=== PATIENT | female | born 1960 | race African-American/Black ===

== ENCOUNTER 2017-03-30 15:57 | Inpatient (IN) ==
[~2017-03-30 15:57] MED LIST: DEXTROSE 50% 25 GM/50 ML VIAL IV STA
[2017-03-30 17:16] LABS: Basophils % 0.2 % (0.0-0.8); Eosinophils # 0.1 10*3/uL (0.0-0.87); Eosinophils % 0.5 % (0.00-10.9); Hematocrit 37.6 VOL% (35.7-47.0); Hemoglobin 11.3 GM/DL (12.0-16.0); Immature Granulocytes % 0.9 %; Immature Granulocytes Absolute 0.11 #; Lymphocytes # 1.2 10*3/uL (1.4-4.0); Lymphocytes % 9.4 % (21.3-54.2); Mean Corpuscular HGB Conc 30.1 GM/DL (32-36); Mean Corpuscular Hemoglobin 28 PG (27-34); Mean Corpuscular Volume 91.9 FL (87-102); Mean Platelet Volume 9.3 FL (9.6-12.0); Monocytes # 0.7 10*3/uL (0.11-0.8); Monocytes % 5.4 % (1.7-12.7); Neutrophils # 10.5 10*3/uL (1.4-7.4); Neutrophils % 83.6 % (38.7-73.9); Platelet Count 233 T/CUMM (130-400); Red Blood Count 4.09 MC/CUMM (3.8-5.5); Red Cell Distribution Width 16.3 % (9.3-17.3); White Blood Count 12.5 T/CUMM (4-12)
[2017-03-30 17:36] LABS: Albumin 3.1 G/DL (3.4-5.0); Bilirubin,Total 0.4 MG/DL (0.2-1.0); Calcium 8.7 MG/DL (8.5-10.1); Potassium 3.5 MMOL/L (3.5-5.1)
--- NOTE | 2017-03-30 18:10 | Emergency Department Note ---
I, Sophia Dumas, am scribing for, and in the presence of, Odette Mahmood DO 17: 05. ITimoteo Debra, DO, personally performed the services described in this documentation, ascribed by Sophia Dumas in my presence, and it is both accurate and complete 706 . Arrival - Arrival Chief Complaint: Altered Mental Status Stated Complaint: blood sugar ED Nursing Triage Note: patient got out of car by nurse and brought straight to the back. patients blood sugar was less than 20. family states that patient has not felt good since yesterday and all she has done today is lay around. Mode of Arrival: Wheelchair Limitations: No Limitations, Language Barrier Source: Family Time Seen by Provider: 03/30/17 16:41 - History of Present Illness HPI Narrative: This is a 56 y/o black female,who presents to the ED with c/o hypoglycemia which started yesterday. Her family states pts' BS was 20 when they found her today. Pt states she took her insulin this morning but did not eat much this morning. Pt's family also states pt had a fall yesterday. Pt now complains of left sided pain. Pt also complains of diarrhea for over 1 month. She reports she has spoken to her PCP which he told her this is secondary to ABX use. Pt has no other complaints/pain in the ED at this time. Pt has a PMHx of IDDM. Pt denies a surgical hx. Pt denies a family medical Hx. Pt denies a social hx. Onset (ago): day(s) (Started yesterday.) Consistency: constant Severity: moderate Allergies/Adverse Reactions: Allergies Allergy/AdvReac Type Severity Reaction Status Date / Time sulfamethoxazole Allergy Unknown/Unable Verified 03/30/17 16:07 [From Bactrim] to obtain trimethoprim [From Bactrim] Allergy Unknown/Unable Verified 03/30/17 16:07 to obtain Home Medications: Home Medications Medication Instructions Recorded Confirmed Type Amlodipine Besylate 10 mg PO QAM 03/30/17 03/30/17 History Atorvastatin [Lipitor] 10 mg PO BEDTIME 03/30/17 03/30/17 History Colchicine [Colcrys] 0.6 mg PO BID 03/30/17 03/30/17 History Esomeprazole Magnesium [Nexium] 40 mg PO QAM 03/30/17 03/30/17 History Insulin Detemir [Levemir FlexPen] 65 unit SUBCUT BID 03/30/17 03/30/17 History Levothyroxine Tab [Synthroid Tab] 100 mcg PO DAILY@0700 03/30/17 03/30/17 History Mycophenolate Sodium [Mycophenolic 720 mg PO BID 03/30/17 03/30/17 History Acid] Potassium Chloride 8 meq PO BID 03/30/17 03/30/17 History Tacrolimus [Tacrolimus Cap] 5 mg PO BID 03/30/17 03/30/17 History predniSONE TAB [PredniSONE] 5 mg PO QAM 03/30/17 03/30/17 History Review of System - Review of System 12 point system: reviewed and no additional remarkable complaints except as stated - Review of System Review of Systems: Fall Gastrointestinal: Present: diarrhea Endocrine: Present: other (Hypoglycemia) Medical,Surgical,& Family Hx - Medical History Endocrine: History of: Diabetes Mellitus (IDDM) - Family History Family History: Denies;: Family Diabetes - Social History Smoking Status: Never smoker Frequency of Alcohol Use: None Type of Drug Use: None Exam Vital Signs: Vital Signs Temperature 98.6 F 03/30/17 16:29 Pulse Rate 82 03/30/17 16:29 Respiratory Rate 18 03/30/17 16:29 Blood Pressure 102/60 03/30/17 16:29 O2 Sat by Pulse Oximetry 97 03/30/17 16:03 - General General appearance: alert, in no apparent distress, obese - Head Head exam: Present: atraumatic, normocephalic - Eye Eye exam: Present: normal appearance, PERRL, EOMI. Absent: nystagmus - ENT ENT exam: Present: normal exam, mucous membranes moist - Neck Neck exam: Present: normal inspection, full ROM, trachea midline. Absent: tenderness - Chest Chest inspection: Present: normal inspection, symmetric chest wall rise. Absent : tenderness - Respiratory Respiratory exam: Present: normal lung sounds bilaterally. Absent: respiratory distress - Cardiovascular Cardiovascular exam: Present: regular rate, normal rhythm, normal heart sounds. Absent: murmur, rubs, gallop, clicks, JVD - Abdominal Exam Abdominal exam: Present: soft (Pulled muscle to the Left lower abdomen), normal bowel sounds, other. Absent: distention, tenderness, guarding, rebound, rigidity - Rectal Exam Rectal exam: Present: deferred - Extremities Exam Extremities exam: Present: normal inspection, full ROM, normal capillary refill. Absent: pedal edema - Back Exam Back exam: Present: normal inspection, full ROM. Absent: tenderness, muscle spasm, rashes - Neurological Exam Neurological exam: Present: alert, oriented X3, CN II-XII intact. Absent: motor sensory deficit - Psychiatric Psychiatric exam: Present: normal affect, normal mood. Absent: depressed, agitated, anxious, flat affect, manic - Skin Skin exam: Present: warm, dry, intact, normal color. Absent: rash, cyanosis, diaphoresis, erythema, pallor, mottled Course Course Narrative: Spoke with hospitalist and they will admit this diabetic for hypoglycemic episode and worsening renal function. Results - Labs CBC & BMP: 03/30/17 16:57 03/30/17 16:57 Lab Results: I have reviewed the patients labs Disposition Clinical Impression: Hypoglycemia Case discussed with: patient, patient's family Disposition: Still a Patient Condition: Stable Time of Disposition: 18:10
[2017-03-30] MEDS ORDERED: DEXTROSE 50% 25 GM/50 ML SYRINGE IV ONE (18:15)
[2017-03-30] MEDS ORDERED: DEXTROSE 50% 25 GM/50 ML VIAL IV STA (18:18)
[2017-03-30] MEDS: DEXTROSE 5% NACL 0.45% 1,000 ML IV SCH (18:31)
[2017-03-30] MEDS ORDERED: GLUCAGON 1 MG VIAL IM PRN (19:01)
[2017-03-30] MEDS ORDERED: DEXTROSE 50% 25 GM/50 ML SYRINGE IV PRN (19:01)
--- NOTE | 2017-03-30 19:41 | Internal Med History&Physical ---
Assessment and Plan (1) Hypoglycemia Status: Acute Assessment and plan: 56-year-old female admitted to acute care * Hypoglycemia. Patient's oral intake has decreased significantly recently. She has lost weight and has been taking her insulin. This is most likely the cause of hypoglycemia. * Nausea vomiting and diarrhea. Will evaluate with stool for C. difficile culture and sensitivity. We will also check ultrasound of right upper quadrant. Patient has had previous cholecystectomy and she is on Nexium. * History of renal failure. Patient is status post renal transplant. She will be continued on her current transplant medications. Her creatinine is higher than her baseline of around 1.5. This is probably secondary to dehydration. * Diabetes. Will hold her Levemir insulin. Will give her a mild sliding scale if blood sugars are above 200. * History of connective tissue disease. Stable * Her white count is elevated. With her recent history of antibiotics use. Will start her empirically on Flagyl. * Discussed with patient and her family members Current Visit: Yes (2) Insulin dependent diabetes mellitus Status: Acute Current Visit: Yes (3) Status post kidney transplant Status: Acute Current Visit: Yes (4) Acute renal failure Status: Acute Current Visit: Yes (5) Hypertension Status: Acute Current Visit: Yes (6) Connective tissue disease Status: Acute Current Visit: Yes History of Present Illness Chief complaint: Hypoglycemia History of present illness: Ms. Delgado is a 56 year old female with history of multiple medical problems including chronic renal failure status post renal transplant, hypertension, diabetes, connective tissue disease, hypothyroidism who was brought to the emergency room with change in mental status. She was found to have hypoglycemia. Her glucose was less than 20. She has not been eating recently. Her appetite has been extremely poor. She has been having diarrhea off and on for last month or so. She was seen in the office last month and has lost about 7 pounds since then. She had previously lost 15 pounds. She was recently on antibiotics. Her diarrhea is 1 or 2 times a day and it is watery. She feels weak. She did have a fall yesterday but did not hit her head. She has had previous cholecystectomy. She has been taking her insulin but a lower dose. She denies any chest pain or shortness of breath. She does have some nausea and vomiting. Patient lives at home with her son. She does not smoke or drink alcohol Home Medications Medication Instructions Recorded Confirmed Type Amlodipine Besylate 10 mg PO QAM 03/30/17 03/30/17 History Atorvastatin [Lipitor] 10 mg PO BEDTIME 03/30/17 03/30/17 History Colchicine [Colcrys] 0.6 mg PO BID 03/30/17 03/30/17 History Esomeprazole Magnesium [Nexium] 40 mg PO QAM 03/30/17 03/30/17 History Insulin Detemir [Levemir FlexPen] 65 unit SUBCUT BID 03/30/17 03/30/17 History Levothyroxine Tab [Synthroid Tab] 100 mcg PO DAILY@0700 03/30/17 03/30/17 History Mycophenolate Sodium [Mycophenolic 720 mg PO BID 03/30/17 03/30/17 History Acid] Potassium Chloride 8 meq PO BID 03/30/17 03/30/17 History Tacrolimus [Tacrolimus Cap] 5 mg PO BID 03/30/17 03/30/17 History predniSONE TAB [PredniSONE] 5 mg PO QAM 03/30/17 03/30/17 History Allergies Allergy/AdvReac Type Severity Reaction Status Date / Time sulfamethoxazole Allergy Unknown/Unable Verified 03/30/17 16:07 [From Bactrim] to obtain trimethoprim [From Bactrim] Allergy Unknown/Unable Verified 03/30/17 16:07 to obtain Medical,Surgical,& Family Hx - Medical History Cardio: History of: Hypertension Endocrine: History of: Diabetes Mellitus (IDDM), Dyslipidemia, Thyroid Disorder (Hypothyroidism) Rheumatology: History of;: Rheumatological Problems (Mixed connective tissue disease) Renal: History of: Renal Failure (Status post renal transplant in 2007) Genitourinary: History of: Problems Gastrointestinal: History of: GERD - Surgical History Abdominal Surgeries: Surgical HX of: Abdominal Surgery (Renal transplant at [facility] in 2007), Cholecystectomy Reproductive Surgeries: Surgical HX of;: Section (Twice) - Family History Family History: Denies;: Family Diabetes - Social History Smoking Status: Never smoker Frequency of Alcohol Use: None Type of Drug Use: None Marital Status: Lives With:: Alone Functional capacity: independent ambulation 12 point system: reviewed and no additional remarkable complaints except as stated (As mentioned in HPI) Exam - Constitutional Vitals: Period Temp Pulse Resp BP Sys/Block Pulse Ox Last 24 Hr 98.6 F-98.6 F 82-88 17-22 102-123/60-72 97-100 Exam: Examination: GENERAL: NAD. HEENT: PERRLA. EOMI. Mucous membranes are dry NECK: Neck is supple. No JVD. No carotid bruit. No thyromegaly. CVS: Regular rate and rhythm. S1 and S2 are normal. RESPIRATORY: Lungs are clear. No rales or rhonchi. ABDOMEN: Soft and nontender. Bowel sounds are present. No hepatosplenomegaly. Scars from previous renal transplant EXT: No edema. Peripheral pulses are present. FISCAL ASSISTANT: Patient is awake, alert and oriented to time place and person. Cranial nerves II through XII are grossly intact. Motor strength is 4/5 SKIN: Warm and dry. MSK: No obvious deformity. Results - Labs CBC & BMP: 03/30/17 16:57 03/30/17 16:57 Lab Results: I have reviewed the past 24 hour labs
[2017-03-30] MEDS: ATORVASTATIN 10 MG TABLET PO SCH (22:23)
[2017-03-30] MEDS: POTASSIUM CHLORIDE 8 MEQ CAPSULE PO SCH (22:23)
[2017-03-30] MEDS: INSULIN REGULAR 100 UNIT/ML SUBCUT SCH (22:24)
[2017-03-30] MEDS: MYCOPHENOLATE 180 MG TABLET PO SCH (22:24)
[2017-03-31] MEDS: DEXTROSE 5% NACL 0.45% 1,000 ML IV SCH ×2 (05:21→10:01)
[2017-03-31 06:09] LABS: Basophils % 0.1 % (0.0-0.8); Eosinophils # 0.1 10*3/uL (0.0-0.87); Eosinophils % 0.8 % (0.00-10.9); Hemoglobin 9.9 GM/DL (12.0-16.0); Immature Granulocytes Absolute 0.13 #; Lymphocytes % 14.8 % (21.3-54.2); Mean Corpuscular Hemoglobin 28 PG (27-34); Mean Corpuscular Volume 91.7 FL (87-102); Monocytes # 0.6 10*3/uL (0.11-0.8); Monocytes % 4.5 % (1.7-12.7); Neutrophils # 10.6 10*3/uL (1.4-7.4); Neutrophils % 78.8 % (38.7-73.9); Platelet Count 222 T/CUMM (130-400); Red Cell Distribution Width 16.5 % (9.3-17.3); White Blood Count 13.4 T/CUMM (4-12)
[2017-03-31 06:32] LABS: Calcium 8.2 MG/DL (8.5-10.1); Osmolality,Calculated 294.8 MOS/KG (273-304); Potassium 4.2 MMOL/L (3.5-5.1)
[2017-03-31] MEDS: LEVOTHYROXINE 100 MCG TABLET PO SCH (06:41)
--- NOTE | 2017-03-31 08:30 | Internal Med Progress Note ---
Assessment and Plan (1) Hypoglycemia Status: Acute Assessment and plan: 56-year-old female admitted to acute care * Hypoglycemia. Blood glucose are better controlled. * Nausea vomiting and diarrhea. Will evaluate with stool for C. difficile culture and sensitivity. Postprandial pain. * History of renal failure. Patient is status post renal transplant. She will be continued on her current transplant medications. Continue IV fluid * Diabetes. Will hold her Levemir insulin. Will give her a mild sliding scale if blood sugars are above 200. * History of connective tissue disease. Stable * Her white count is elevated. With her recent history of antibiotics use. Will start her empirically on Flagyl. * Discussed with patient and her family members Current Visit: Yes (2) Insulin dependent diabetes mellitus Status: Acute Current Visit: Yes (3) Status post kidney transplant Status: Acute Current Visit: Yes (4) Acute renal failure Status: Acute Current Visit: Yes (5) Hypertension Status: Acute Current Visit: Yes (6) Connective tissue disease Status: Acute Current Visit: Yes Internal Medicine - PN: Subj Interval history: She is feeling better today. She had a good night. She still had some diarrhea. Denies any nausea or vomiting. Denies any fever or chills. Exam (Progress Note) - Constitutional Vitals: Period Temp Pulse Resp BP Sys/Block Pulse Ox Last 24 Hr 96.3 F-98.6 F 82-106 16-22 99-124/52-72 95-100 Exam: Examination: GENERAL: NAD. NECK: Neck is supple. CVS: Regular rate and rhythm. S1 and S2 are normal. RESPIRATORY: Lungs are clear. No rales or rhonchi. ABDOMEN: Soft and nontender. EXT: No edema. Peripheral pulses are present. TALENT ACQUISITION RELATIONSHIP MANAGER: Motor strength is 4/5 SKIN: Warm and dry. MSK: No obvious deformity. Results - Labs CBC & BMP: 03/31/17 05:06 03/31/17 05:06 Lab Results: I have reviewed the past 24 hour labs
--- NOTE | 2017-03-31 08:51 | Gastrointestinal Consult Note ---
Assessment and Plan - Time spent with patient Time spent with patient: Greater than 30 minutes (1) Nausea & vomiting Status: Acute Current Visit: Yes (2) Other specified counseling Status: Acute Current Visit: Yes History of Present Illness History of present illness: Ms. Delgado is a 56 year old female Home Medications Medication Instructions Recorded Confirmed Type Amlodipine Besylate 10 mg PO QAM 03/30/17 03/30/17 History Atorvastatin [Lipitor] 10 mg PO BEDTIME 03/30/17 03/30/17 History Colchicine [Colcrys] 0.6 mg PO BID 03/30/17 03/30/17 History Esomeprazole Magnesium [Nexium] 40 mg PO QAM 03/30/17 03/30/17 History Insulin Detemir [Levemir FlexPen] 65 unit SUBCUT BID 03/30/17 03/30/17 History Levothyroxine Tab [Synthroid Tab] 100 mcg PO DAILY@0700 03/30/17 03/30/17 History Mycophenolate Sodium [Mycophenolic 720 mg PO BID 03/30/17 03/30/17 History Acid] Potassium Chloride 8 meq PO BID 03/30/17 03/30/17 History Tacrolimus [Tacrolimus Cap] 5 mg PO BID 03/30/17 03/30/17 History predniSONE TAB [PredniSONE] 5 mg PO QAM 03/30/17 03/30/17 History Allergies Allergy/AdvReac Type Severity Reaction Status Date / Time sulfamethoxazole Allergy Unknown/Unable Verified 03/30/17 16:07 [From Bactrim] to obtain trimethoprim [From Bactrim] Allergy Unknown/Unable Verified 03/30/17 16:07 to obtain Medical,Surgical,& Family Hx - Medical History Cardio: History of: Hypertension Endocrine: History of: Diabetes Mellitus (IDDM), Dyslipidemia, Thyroid Disorder (Hypothyroidism) Rheumatology: History of;: Rheumatological Problems (Mixed connective tissue disease) Renal: History of: Renal Failure (Status post renal transplant in 2007) Genitourinary: History of: Problems Gastrointestinal: History of: GERD - Surgical History Abdominal Surgeries: Surgical HX of: Abdominal Surgery (Renal transplant at [facility] in 2007), Cholecystectomy Reproductive Surgeries: Surgical HX of;: Section (Twice) - Family History Family History: Denies;: Family Diabetes - Social History Smoking Status: Never smoker Frequency of Alcohol Use: None Type of Drug Use: None Exam - Constitutional Vitals: Period Temp Pulse Resp BP Sys/Block Pulse Ox Last 24 Hr 96.3 F-98.6 F 82-106 16-22 99-124/52-72 95-100 Results - Labs CBC & BMP: 03/31/17 05:06 03/31/17 05:06 Note Addendum: PLEASE NOTE -- automatic citation of patient information is unavoidable in this electronic note. I have made a reasonable effort to review the information cited , but it is not a part of my evaluation, impression, or recommendation unless specifically discussed in the dictated text that follows.~ As well, voice recognition software was used in the creation of this clinical note. Reasonable effort was made to identify and correct gross errors. Despite proofreading, errors in hydraulic plumber may be present, including nonsense verbiage at times. If you encounter such an error, please contact me at for discussion and correction. -- Staci Chief complaint: nausea with vomiting History of present illness: This is a new patient, a 56-year-old female seen by consultation for evaluation of nausea with vomiting. The patient is admitted to the medical hoang under the care of Dr. Gonsalves with a primary diagnosis of hypoglycemia. The patient was admitted through the emergency department with primary complaint of altered mental status. Evaluation at that time revealed acute on~ chronic kidney injury, dehydration, and moderately severe hypoglycemia. She notes that she has been having nausea with vomiting for several weeks and this has caused decreased oral intake. She has not changed medications or dietary choices generally. She has not had any sick contacts that she is aware of. She is able to eat and drink successfully without mechanical obstruction, but she gets full earlier than usual and the act of eating often causes nausea. When she has vomiting it tends to be a moderate amount of partially digested food. She has not seen blood in her vomitus. She notes that she has had some loose stools lately but is not having more frequent bowel movements. She also notes that her diabetes control has not been very good. Of note, she is a renal transplant patient on chronic immunosuppression and this medication has not changed recently. Patient denies fever, chills, night sweats, rigors, headache, neck pain, visual changes, redness of the eyes, dysphagia, odynophagia, difficulty chewing, chest pain, shortness of breath, abdominal pain, weight loss, hematemesis, hematochezia, melena, proctalgia, constipation, dysuria, skin changes, temperature regulation issues, flushing, easy bleeding/bruising, musculoskeletal pain, numbness/weakness in the extremities, yellowing of the eyes/skin, cutaneous eruptions, family history of gastrointestinal cancer and colon polyps, and other complaints in general. Review of systems: 12 point review of systems was negative except as documented above. Outpatient medications: amlodipine, Lipitor, colchicine, Nexium, insulin, Synthroid, Mycophenolate sodium, potassium chloride, tacrolimus, prednisone Inpatient medications: Lipitor, ciprofloxacin, glucagon, [place], Humulin, Synthroid, Flagyl, Mycophenolate sodium, tacrolimus, Zofran, Protonix, potassium chloride, prednisone Past Medical History: hypertension, diabetes, dyslipidemia, hypothyroidism, mixed connective tissue disease, renal failure status post renal transplant ( 2007), gastroesophageal reflux disease, cholecystectomy Social history: negative tobacco. Negative alcohol ~ Family history: no gastrointestinal cancers Physical examination:~ Vital Signs: Current vital signs reviewed and documented above.~ General Appearance: well-appearing. Not acutely ill. Head: Normocephalic.~ Neck: Palpation of the neck revealed no abnormalities.~ Eyes: No scleral icterus.~ No scleral injection.~ No conjunctival pallor.~ Oral Cavity: Odor of breath was normal. No drooling was observed. Lips showed no abnormalities. Floor of the mouth showed no abnormalities.~ Pharynx: Oropharynx was normal.~ Lungs: Respiration rhythm and depth was normal.~ Cardiovascular: Heart rate and rhythm were normal. No murmurs were appreciated.~ Abdomen: abdomen was not distended. Abdominal palpation revealed no tenderness and no hepatosplenomegaly. Ascites was not discovered. Abdominal auscultation revealed positive bowel sounds. Musculoskeletal System: Musculoskeletal system was grossly normal.~ Neurological: level of consciousness was normal. Speech was normal. Skin: General appearance was normal. Color and pigmentation were normal. No skin lesions. ~ Laboratory: white blood count 13.4, hemoglobin 9.9, hematocrit 33, platelets 222 , sodium 144, potassium 4.2, chloride 115, CO2 15, BUN 41, creatinine 2.7, glucose 84, calcium 8.2, albumin 3.1, ALT 40, AST 29, bilirubin 0.4, alkaline phosphatase 108 Radiology: reviewed Impressions:~ 1. Nausea with vomiting the differential diagnosis includes complete or partial gastric outlet obstruction, diabetic related gastroparesis, hiatus hernia or other esophageal mechanical problem, peptic ulcer, gastritis/ esophagitis generally, medication related nausea, centrally mediated nausea, and others. I agree with clear liquid diet and advancement as indicated. I agree with proton pump inhibitor and anti-emetic. I recommend continued aggressive control of volume, glucose, and electrolytes. I recommend upper endoscopy with timing based on clinical progress, likely Sunday. I recommend a routine gastric emptying study. 2. Other specified counseling --~ The patient was seen for greater than 30 minutes.~ The patient was counseled for greater than 50% of this time regarding differential diagnosis, likely diagnosis, diagnostic and therapeutic alternatives, risks/benefits/alternatives of medications and procedures, and plan of care generally.~ The patient expressed understanding and wishes to proceed. Recommendations: -- continued volume, glucose, and electrolyte management -- agree with proton pump inhibitor -- agree with advancing diet -- upper endoscopy with timing based on clinical progress, likely Sunday -- routine gastric emptying study; consider Pro motility agent if positive -- thank you for this consult. We will follow with you.
[2017-03-31] MEDS ORDERED: amLODIPine 10 MG TABLET PO SCH (09:00)
--- NOTE | 2017-03-31 09:33 | Ultrasound Report ---
Exam: US abdomen Date:03/31/2017 8:54 AM Indication: Right upper quadrant pain cholecystectomy Comparison: None Findings: Liver: 13.8 cm. 1.6 x 1.6 x 1.3 cm cystic area in the left hepatic lobe. Hepatic and portal veins are patent. Gallbladder: Previous cholecystectomy. CBD: 4 mm Pancreas: Kidneys Right kidney: 7.7 x 3.6 x 4.3 cm with mild hydronephrosis. Decreased renal cortex present . Left kidney: Surgically absent Transplant kidney is in the right lower quadrant upper pelvis without obvious abnormality. Transplant kidney 10.5 x 5 cm. Normal color flow Aorta IVC: No obvious aneurysm. Spleen: 8.2 x 3.9 x 3.3 cm Impression: 1. Hydronephrosis the right [place] renal collecting system with loss of renal cortex and slight atrophy of the kidney 2. Previous left nephrectomy 3. Stable appearance of transplant kidney right lower quadrant. 4. Simple cyst left hepatic lobe Ultrasound images were stored and captured PROCEDURE INTERPRETED AT [facility] DEPARTMENT OF RADIOLOGY Final Report Signed by: Dr. Laureano Case
[2017-03-31] MEDS: INSULIN REGULAR 100 UNIT/ML SUBCUT SCH ×3 (09:44→16:49)
[2017-03-31] MEDS: metroNIDAZOLE 500 MG TABLET PO SCH ×3 (09:50→21:56)
[2017-03-31] MEDS: PANTOPRAZOLE 40 MG TABLET PO SCH (09:50)
[2017-03-31] MEDS: CIPROFLOXACIN 250 MG TABLET PO SCH ×2 (09:50→21:56)
[2017-03-31] MEDS: MYCOPHENOLATE 180 MG TABLET PO SCH ×2 (09:50→21:56)
[2017-03-31] MEDS: predniSONE 5 MG TABLET PO SCH (09:50)
[2017-03-31] MEDS: POTASSIUM CHLORIDE 8 MEQ CAPSULE PO SCH ×2 (09:50→21:56)
[2017-03-31] MEDS: TACROLIMUS 5 MG PO SCH ×2 (09:53→21:59)
[2017-03-31] MEDS: ONDANSETRON 4 MG/2 ML VIAL IV PRN (09:57)
--- NOTE | 2017-03-31 13:24 | Nephrology Consult Note ---
History of Present Illness Chief complaint: Acute on chronic renal failure. Kidney transplant History of present illness: Ms. Delgado is a 56 year old female who had a kidney transplant in 2007. She did dialyze 5 years prior to that. She presents with a recent poor appetite and poor intake of fluid along with some diarrhea which is characterizes 1-3 bowel movements daily. Creatinine was noted to be 2.5 on admission with her usual baseline 1.5. She is Ms. none of her transplant medications. On exam she is alert and in no distress neck without jugular venous distention heart without rub or gallop. Abdomen soft nontender extremities without edema. Impression acute superimposed on chronic renal impairment #2 volume depletion from poor oral intake #3 history of kidney transplantation Plan continue IV fluid and expect her creatinine will improve with oriental orthodox of euvolemia Home Medications Medication Instructions Recorded Confirmed Type Amlodipine Besylate 10 mg PO QAM 03/30/17 03/30/17 History Atorvastatin [Lipitor] 10 mg PO BEDTIME 03/30/17 03/30/17 History Colchicine [Colcrys] 0.6 mg PO BID 03/30/17 03/30/17 History Esomeprazole Magnesium [Nexium] 40 mg PO QAM 03/30/17 03/30/17 History Insulin Detemir [Levemir FlexPen] 65 unit SUBCUT BID 03/30/17 03/30/17 History Levothyroxine Tab [Synthroid Tab] 100 mcg PO DAILY@0700 03/30/17 03/30/17 History Mycophenolate Sodium [Mycophenolic 720 mg PO BID 03/30/17 03/30/17 History Acid] Potassium Chloride 8 meq PO BID 03/30/17 03/30/17 History Tacrolimus [Tacrolimus Cap] 5 mg PO BID 03/30/17 03/30/17 History predniSONE TAB [PredniSONE] 5 mg PO QAM 03/30/17 03/30/17 History Allergies Allergy/AdvReac Type Severity Reaction Status Date / Time sulfamethoxazole Allergy Unknown/Unable Verified 03/30/17 16:07 [From Bactrim] to obtain trimethoprim [From Bactrim] Allergy Unknown/Unable Verified 03/30/17 16:07 to obtain Medical,Surgical,& Family Hx - Medical History Cardio: History of: Hypertension Endocrine: History of: Diabetes Mellitus (IDDM), Dyslipidemia, Thyroid Disorder (Hypothyroidism) Rheumatology: History of;: Rheumatological Problems (Mixed connective tissue disease) Renal: History of: Renal Failure (Status post renal transplant in 2007) Genitourinary: History of: Problems Gastrointestinal: History of: GERD - Surgical History Abdominal Surgeries: Surgical HX of: Abdominal Surgery (Renal transplant at [facility] in 2007), Cholecystectomy Reproductive Surgeries: Surgical HX of;: Section (Twice) - Family History Family History: Denies;: Family Diabetes - Social History Smoking Status: Never smoker Frequency of Alcohol Use: None Type of Drug Use: None Review of Systems 12 point system: reviewed and no additional remarkable complaints except as stated Exam - Vital Signs Vital signs: Period Temp Pulse Resp BP Sys/Block Pulse Ox Last 24 Hr 96.3 F-98.6 F 82-106 16-22 94-124/52-72 95-100 - General Appearance General appearance: well-developed, well-nourished, appears started age Neck: no JVD, no thyromegaly, no carotid bruit, supple Respiratory: no kyphosis, no scoliosis Cardiology: no murmurs, no rub, no gallops, no edema, regular rate, regular rhythm, normal S1, normal S2 Gastrointestinal: normoactive bowel sounds Integumentary: no rash, warm and dry Neurologic: no focal deficit, no asterixis, alert and oriented x3, reflexes 2+ and symmetric, gait normal, strength 5/5 Musculoskeletal: no deformities, no erythema, no cyanosis, no clubbing Psychiatric: mood/affect appropriate, cooperative Results - Labs CBC & BMP: 03/31/17 05:06 03/31/17 05:06 Assessment and Plan (1) Acute renal failure Status: Acute Assessment and plan: Due to volume depletion Current Visit: Yes (2) Status post kidney transplant Status: Acute Assessment and plan: Baseline creatinine 1.5 Current Visit: Yes (3) Nausea & vomiting Status: Acute Current Visit: Yes (4) Insulin dependent diabetes mellitus Status: Acute Current Visit: Yes
[2017-03-31] MEDS: SODIUM BICARB INJ 50 MEQ in DEXTROSE 5% NACL 0.45% 1,000 ML IV SCH ×2 (14:08→22:15)
[2017-03-31] MEDS: ATORVASTATIN 10 MG TABLET PO SCH (21:56)
[2017-04-01] MEDS: INSULIN REGULAR 100 UNIT/ML SUBCUT SCH ×5 (01:53→21:08)
[2017-04-01] MEDS: TACROLIMUS 5 MG PO SCH ×3 (01:54→20:45)
[2017-04-01 06:26] LABS: Basophils % 0.2 % (0.0-0.8); Eosinophils # 0.1 10*3/uL (0.0-0.87); Eosinophils % 0.7 % (0.00-10.9); Hematocrit 30.1 VOL% (35.7-47.0); Immature Granulocytes % 0.9 %; Immature Granulocytes Absolute 0.09 #; Lymphocytes # 1.3 10*3/uL (1.4-4.0); Lymphocytes % 13.8 % (21.3-54.2); Mean Corpuscular HGB Conc 29.9 GM/DL (32-36); Mean Corpuscular Hemoglobin 27 PG (27-34); Mean Corpuscular Volume 90.1 FL (87-102); Mean Platelet Volume 9.9 FL (9.6-12.0); Monocytes # 0.5 10*3/uL (0.11-0.8); Monocytes % 5.4 % (1.7-12.7); Neutrophils # 7.6 10*3/uL (1.4-7.4); Platelet Count 188 T/CUMM (130-400); Red Blood Count 3.34 MC/CUMM (3.8-5.5); Red Cell Distribution Width 16.1 % (9.3-17.3); White Blood Count 9.7 T/CUMM (4-12)
[2017-04-01 06:56] LABS: Calcium 7.9 MG/DL (8.5-10.1); Osmolality,Calculated 298.3 MOS/KG (273-304); Potassium 4.2 MMOL/L (3.5-5.1)
[2017-04-01] MEDS: LEVOTHYROXINE 100 MCG TABLET PO SCH (07:30)
[2017-04-01 07:45] LABS: Free T4 (Free Thyroxine) 1.36 NG/DL (0.76-1.46); Thyroid Stimulating Hormone 0.336 uIU/ml (0.358-3.74)
--- NOTE | 2017-04-01 08:25 | Family Practice Progress Note ---
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, pt admitted for hypoglycemic episodes, improving, nausea vomiting and diarrhea improving, Has h/o DM, HTN , status post renal transplant, hypothyroid connective tissue disorder, anemia pt seen and examined on second floor , ambulating well, feeling better, than yesterday on IVF , patient could not eat the breakfast, requesting diabetic liquid diet, has occasional dizziness on getting up has bowel movements regular, no diarrhea since 3 days, no fever , has nausea no vomiting , no chest pain , SOB , headaches or dizziness , Urine regular , No overnight events reported by the nurse, Exam (Progress Note) - Constitutional Vitals: Period Temp Pulse Resp BP Sys/Block Pulse Ox Last 24 Hr 96.4 F-97.3 F 83-97 18-20 94-112/50-64 96-98 Exam: Examination: GENERAL: Alert, oriented, in no acute distress , female pt, sitting up, ambulating well with occasional dizziness when getting up HEENT: normal, hearing,PERRLA. EOMI. pale conjunctiva NECK: Neck is supple. No JVD. No carotid bruit. No thyromegaly. CVS: Regular rate and rhythm. S1 and S2 are normal. RESPIRATORY: Clear to ausculation bilaterally , No wheezes, rales or rhonchi. ABDOMEN: Soft and nontender. Bowel sounds are present. No hepatosplenomegaly. EXT: No edema. COOK VEGETABLE: Patient is awake, alert and oriented, Cranial nerves 2-12 grossly intact. Motor strength normal. Results - Labs CBC & BMP: 04/01/17 05:59 04/01/17 05:59 Lab Results: I have reviewed the past 24 hour labs Labs: TSH 0.336, free T4 1.36, Assessment and Plan (1) Hypoglycemia Status: Acute Assessment and plan: , improving, continue IV fluids, will add diabetic clear liquid diet, will advance if tolerating tomorrow Nausea, vomiting improving on Zofran, proton pump inhibitors, diarrhea resolved , on day 2 of Flagyl, day 2 of Cipro, WBC count improving 2. Acute renal failure status post renal transplant, in 2007, follow director patient financial services recommendations, 3. Hypothyroidism, will adjust Synthroid from 100 mcg to 75 mcg, 4. DM , stable , continue current management 5.HTN stable, continue current antihypertensives, 6. connective tissue disorder, stable, 7. Anemia, possible EGD tomorrow a.m., need of gastric emptying study Current Visit: Yes (2) Acute renal failure Status: Acute Current Visit: Yes (3) Hypothyroidism Status: Chronic Current Visit: Yes (4) Hypertension Status: Chronic Current Visit: Yes (5) Insulin dependent diabetes mellitus Status: Chronic Current Visit: Yes (6) Status post kidney transplant Status: Chronic Current Visit: Yes (7) Connective tissue disease Status: Chronic Current Visit: Yes
[2017-04-01] MEDS: SODIUM BICARB INJ 50 MEQ in DEXTROSE 5% NACL 0.45% 1,000 ML IV SCH ×2 (08:50→16:59)
[2017-04-01] MEDS: MYCOPHENOLATE 180 MG TABLET PO SCH ×2 (09:28→20:46)
[2017-04-01] MEDS: POTASSIUM CHLORIDE 8 MEQ CAPSULE PO SCH ×2 (09:28→20:46)
[2017-04-01] MEDS: CIPROFLOXACIN 250 MG TABLET PO SCH ×2 (09:28→20:46)
[2017-04-01] MEDS: PANTOPRAZOLE 40 MG TABLET PO SCH (09:30)
[2017-04-01] MEDS: metroNIDAZOLE 500 MG TABLET PO SCH ×3 (09:30→20:47)
[2017-04-01] MEDS: predniSONE 5 MG TABLET PO SCH (09:31)
--- NOTE | 2017-04-01 12:10 | Nephrology Progress Note ---
Nephrology - PN: Subj Interval history: Ms. Delgado seen in follow-up of her acute renal failure with her transplant kidney. She is concerned about her glucoses being elevated she is on a full liquid diet and is difficult to restrict sugars there. She is also receiving some dextrose in her IV fluids which we can stop. We will continue with IV fluids and bicarb supplementation her creatinine is no better at 2.9 and her bicarb is now up to 18. Chest is clear she has no peripheral edema. We discussed possible upper endoscopy in the morning she understands the plan Exam (PN)-Nephrology - Vital Signs Vital signs: Period Temp Pulse Resp BP Sys/Block Pulse Ox Last 24 Hr 97.0 F-97.3 F 83-91 18-20 97-112/50-64 96-98 - Lab 04/01/17 05:59 04/01/17 05:59 Most recent lab results Calcium 7.9 MG/DL (8.5-10.1) L 04/01/17 05:59 Assessment and Plan (1) Acute renal failure Status: Acute Assessment and plan: Due to volume depletion Current Visit: Yes (2) Status post kidney transplant Status: Acute Assessment and plan: Baseline creatinine 1.5 Current Visit: Yes (3) Nausea & vomiting Status: Acute Current Visit: Yes (4) Insulin dependent diabetes mellitus Status: Acute Current Visit: Yes
[2017-04-01] MEDS: ONDANSETRON 4 MG/2 ML VIAL IV PRN (16:59)
[2017-04-01] MEDS: SODIUM BICARB INJ 50 MEQ in SODIUM CHLORIDE 0.45% 1,000 ML IV SCH (17:35)
[2017-04-01] MEDS: ATORVASTATIN 10 MG TABLET PO SCH (20:46)
[2017-04-02] MEDS: SODIUM BICARB INJ 50 MEQ in SODIUM CHLORIDE 0.45% 1,000 ML IV SCH ×4 (01:10→20:59)
[2017-04-02 04:23] LABS: Apearance,Urine CLOUDY (Clear); Bacteria,Urine Few /HPF (Few); Bilirubin,Urine Negative (Negative); Blood, Urine Moderate mg/dL (Negative); Glucose,Urine (UA) Negative (Negative); Ketones,Urine Negative (Negative); Mucus,Urine Occasional /LPF (Occasional); Nitrite,Urine Negative (Negative); Protein,Urine Negative; RBC,Urine 41 /HPF (0-4); Squamous Epithelial Cell,Urine Occasional /HPF (0-10); Urine Color Yellow (Yellow); Urine Specific Gravity 1.011 (1.001-1.035); Urine Urobilinogen < 2.0 EU/DL (0.2-1.0); WBC,Urine 443 /HPF (0-6)
[2017-04-02] MEDS: LEVOTHYROXINE 75 MCG TABLET PO SCH (06:23)
[2017-04-02 06:53] LABS: Basophils % 0.2 % (0.0-0.8); Eosinophils # 0.1 10*3/uL (0.0-0.87); Eosinophils % 0.9 % (0.00-10.9); Hematocrit 33.3 VOL% (35.7-47.0); Immature Granulocytes % 0.8 %; Immature Granulocytes Absolute 0.11 #; Lymphocytes # 2.5 10*3/uL (1.4-4.0); Mean Corpuscular Hemoglobin 27 PG (27-34); Mean Corpuscular Volume 90.2 FL (87-102); Mean Platelet Volume 9.4 FL (9.6-12.0); Monocytes # 0.7 10*3/uL (0.11-0.8); Neutrophils # 9.9 10*3/uL (1.4-7.4); Neutrophils % 74.1 % (38.7-73.9); Platelet Count 256 T/CUMM (130-400); Red Blood Count 3.69 MC/CUMM (3.8-5.5); Red Cell Distribution Width 16.4 % (9.3-17.3); White Blood Count 13.3 T/CUMM (4-12)
[2017-04-02 07:12] LABS: Calcium 7.7 MG/DL (8.5-10.1); Osmolality,Calculated 291.1 MOS/KG (273-304); Potassium 3.9 MMOL/L (3.5-5.1)
[2017-04-02 07:16] LABS: Magnesium 1.3 MG/DL (1.8-2.4); Phosphorous 2.4 MG/DL (2.5-4.9)
--- NOTE | 2017-04-02 07:52 | EKG Report ---
Stationary ECG Study [facility] Test Date: 04/02/2017 7:51:26 AM Pat Name: JOHN GARCIA Department: Room: 226 Gender: F Hospital Personnel Director: : 1960 Requested by: Aida Kauffman Order Number: [id number] Reading MD: DEMARCO SHEIKH Intervals [place] Rate: 83 P: 56 ME: 152 QRS: 15 QRSD: 118 T: 60 QT: 409 QTc: 449 Interpretive Statements SINUS RHYTHM Electronically Signed On 04-02-17 13:44:12 CDT by DEMARCO SHEIKH [email or web address]
[2017-04-02] MEDS: INSULIN REGULAR 100 UNIT/ML SUBCUT SCH ×4 (09:15→20:58)
--- NOTE | 2017-04-02 09:15 | Family Practice Progress Note ---
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 Has h/o DM, HTN , status post renal transplant, hypothyroid connective tissue disorder, anemia pt seen and examined on second floor , ambulating well, is currently nothing by mouth feeling better, bowel movements are regular, no blood no fever , no nausea no vomiting , no chest pain , SOB , headaches or dizziness, Urine regular , No overnight events reported by the nurse, Exam (Progress Note) - Constitutional Vitals: Period Temp Pulse Resp BP Sys/Block Pulse Ox Last 24 Hr 96.9 F-97.6 F 84-103 16-20 101-118/51-71 97-100 Exam: Examination: GENERAL: Alert, oriented, in no acute distress , female pt, sitting up, ambulating well HEENT: normal, hearing,PERRLA. EOMI. pale conjunctiva NECK: Neck is supple. No JVD. No carotid bruit. No thyromegaly. CVS: Regular rate and rhythm. S1 and S2 are normal. RESPIRATORY: Clear to ausculation bilaterally , No wheezes, rales or rhonchi. ABDOMEN: Soft and nontender. Bowel sounds are present. No hepatosplenomegaly. EXT: No edema. 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 Motor strength normal. Results - Labs CBC & BMP: 04/02/17 06:32 04/02/17 06:32 Lab Results: I have reviewed the past 24 hour labs Labs: Blood culture from 03/31/2017 no growth so far C. difficile from 04/02/2017 negative Assessment and Plan (1) Hypoglycemia Status: Acute Assessment and plan: , improving, continue IV fluids, nothing by mouth currently for EGD this a.m. Nausea, vomiting resolved on Zofran when necessary, proton pump inhibitors, diarrhea resolved, on day 3 of Flagyl, day 3 of Cipro, WBC count improving Low magnesium, will replace. 2. 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 Hypothyroidism, will adjust Synthroid from 100 mcg to 75 mcg, 4. DM , stable , continue current management 5.HTN stable, continue current antihypertensives, 6. connective tissue disorder, stable, Current Visit: Yes (2) Acute renal failure Status: Acute Current Visit: Yes (3) Hypothyroidism Status: Chronic Current Visit: Yes (4) Hypertension Status: Chronic Current Visit: Yes (5) Insulin dependent diabetes mellitus Status: Chronic Current Visit: Yes (6) Status post kidney transplant Status: Chronic Current Visit: Yes (7) Connective tissue disease Status: Chronic Current Visit: Yes
[2017-04-02] MEDS ORDERED: MAGNESIUM SULF RIDER 4 GM in PREMIX 1 EACH IV PRN (09:34)
[2017-04-02] MEDS ORDERED: PROPOFOL 200 MG/20 ML VIAL IV ONE (11:48)
[2017-04-02] MEDS ORDERED: LIDOCAINE 2% 5 ML VIAL ONE (11:48)
--- NOTE | 2017-04-02 11:57 | Operative Note ---
Date of procedure: 04/02/17 Pre-op diagnosis: Persistent nausea and vomiting Procedure: EGD 56-year-old female with persistent nausea and vomiting now for EGD to exclude mechanical obstruction. There is also complains of early satiety. Informed consent was obtained the patient She was sedated with MAC anesthesia per anesthesia protocol. Patient placed in left lateral decubitus position the Olympus flexible video upper endoscope was inserted into the oral cavity under direct vision the esophagus was intubated. Findings: Esophagus-normal proximal mid esophageal mucosa distal esophagus was no esophagitis varices stricture or Marks's was identified. Stomach-normal insufflation normal mucosa to direct retroflexed views of the body fundus cardia and antrum the stomach. Pylorus-normal Duodenum-normal for the bulb duodenum to the third portion of duodenum. The procedure terminated placed our procedure well she is discharged recovery in good condition. Postop diagnosis: 1. Gastroesophageal reflux disease-continue PPI treatment and antireflux precautions 2. No definitive source of recurrent nausea and vomiting identified proceed with gastric emptying scan is recommended by Dr. Small. Anesthesia: MAC Surgeon / Physician: Davis Dillon Estimated blood loss: none Specimens: none sent Condition: stable Disposition: post procedure unit Results - Labs CBC & BMP: 04/02/17 06:32 04/02/17 06:32 Discharge Plan - Discharge Medications No Action Potassium Chloride 8 meq PO BID Esomeprazole Magnesium [Nexium] 40 mg PO QAM predniSONE TAB [PredniSONE] 5 mg PO QAM Colchicine [Colcrys] 0.6 mg PO BID Mycophenolate Sodium [Mycophenolic Acid] 720 mg PO BID Levothyroxine Tab [Synthroid Tab] 100 mcg PO DAILY@0700 Atorvastatin [Lipitor] 10 mg PO BEDTIME Insulin Detemir [Levemir FlexPen] 65 unit SUBCUT BID Amlodipine Besylate 10 mg PO QAM Tacrolimus [Tacrolimus Cap] 5 mg PO BID - Follow Up or Referral - Forms/Instructions
[2017-04-02] MEDS: metroNIDAZOLE 500 MG TABLET PO SCH ×3 (12:13→20:54)
--- NOTE | 2017-04-02 12:31 | Anesthesia Post-Op ---
Anesthesia Post OP - Post Ansesthetic Evaluation Patient seen in post op: Yes Resp: within normal limits CV: within normal limits Mental: within normal limits Temp: within normal limits [id number]: within normal limits Nausea and Vomiting: within normal limits Pain: within normal limits
[2017-04-02] MEDS: MAGNESIUM SULF RIDER 2 GM in PREMIX 1 EACH IV PRN ×3 (13:46→20:54)
[2017-04-02] MEDS: TACROLIMUS 5 MG PO SCH ×2 (13:47→20:58)
[2017-04-02] MEDS: MYCOPHENOLATE 180 MG TABLET PO SCH ×2 (13:47→20:54)
[2017-04-02] MEDS: predniSONE 5 MG TABLET PO SCH (13:50)
[2017-04-02] MEDS: PANTOPRAZOLE 40 MG TABLET PO SCH (13:50)
[2017-04-02] MEDS: CIPROFLOXACIN 250 MG TABLET PO SCH ×2 (14:01→20:54)
[2017-04-02] MEDS: POTASSIUM CHLORIDE 8 MEQ CAPSULE PO SCH ×2 (14:01→20:53)
--- NOTE | 2017-04-02 20:41 | Nephrology Progress Note ---
Nephrology - PN: Subj Interval history: She was admitted with nausea vomiting and diarrhea. Nausea and vomiting have improved. She is just undergone EGD which showed no ulcer or acute inflammation. She denies shortness of breath. She has a renal transplant with baseline creatinine in the upper ones. Exam (PN)-Nephrology - Vital Signs Vital signs: Period Temp Pulse Resp BP Sys/Block Pulse Ox Last 24 Hr 96.2 F-97.5 F 81-95 16-20 106-124/52-78 91-100 Exam: Gen.: Alert and oriented x3. ENT: Pupils equal round reactive to light. EOMs intact. Mucous membranes moist. Neck: Supple. No JVD or bruit. Cardiovascular: Regular rate and rhythm. No murmur rub or gallop Lungs: Clear Abdomen: Soft. Nontender. Positive bowel sounds. 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 * Renal transplant * CRF stage III * Acute on chronic renal failure. She was clinically volume depleted on admission. Creatinine has begun to improve. Intake and output have not been recorded. She has pyuria. Urine has been cultured * Nausea/vomiting/diarrhea. Symptoms have improved. EGD noted. Gastric emptying study planned. Tacrolimus level ordered * Diabetes * Hypertension * Hypothyroidism Current Visit: Yes (2) Nausea & vomiting Status: Acute Current Visit: Yes (3) Connective tissue disease Status: Chronic Current Visit: Yes (4) Hypertension Status: Chronic Current Visit: Yes (5) Hypothyroidism Status: Chronic Current Visit: Yes (6) Insulin dependent diabetes mellitus Status: Chronic Current Visit: Yes (7) Status post kidney transplant Status: Chronic Current Visit: Yes
[2017-04-02] MEDS: ATORVASTATIN 10 MG TABLET PO SCH (20:54)
[2017-04-03] MEDS: SODIUM BICARB INJ 50 MEQ in SODIUM CHLORIDE 0.45% 1,000 ML IV SCH ×3 (06:14→14:23)
[2017-04-03] MEDS: LEVOTHYROXINE 75 MCG TABLET PO SCH ×2 (06:41→12:37)
[2017-04-03 07:15] LABS: Calcium 7.9 MG/DL (8.5-10.1); Potassium 4.5 MMOL/L (3.5-5.1)
[2017-04-03] MEDS: INSULIN REGULAR 100 UNIT/ML SUBCUT SCH ×2 (09:00→12:10)
--- NOTE | 2017-04-03 09:03 | Discharge Summary ---
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 Delgado is a 56 year old female,presented to the ED with hypoglycemic episodes, since the previous day, She not been eating well recently since her appetite had been extremely poor. Had diarrhea off and on for last month or so. Had been also losing weight, She denied any chest pain or shortness of breath. but had nausea and vomiting. vomited stomach contents, with partially digested food, no blood, Initially put NPO, put on IVF , to replace volume, Diet was advanced as tolerated, antiemetics , antacids were ordered, daily labs were followed, blood Cx were drawn, Stool testing was done, Flagyl and Cipro were added.Electrolytes replaced as needed during the hospital stay,Meds continued for her renal transplant, as per nephrology recommendations, Also was noted with ARF , which improved following volume replacement,was near her baseline, BUN/Cr, 28/1.8 Her hypoglycemia , N/V/D got resolved ,and symptomatically improved by 04/01/17, EGD was done on 04/02/17, As per GI, with Postop diagnosis: 1. Gastroesophageal reflux disease- advised continue PPI treatment and antireflux precautions, 2. No definitive source of recurrent nausea and vomiting identified proceed with gastric emptying scan as recommeded the next day, which showed GASTRIC EMPTYING STUDY, Impression: Borderline T1/2 equals 92.61 minutes. However at 193 minutes, there is 90% gastric emptying.GERD, Her levothyroxine adjusted , as per TSH level, Pantoprazole added instead of nexium, and continued rest of her home meds, F/u appt made with PCP in 1 week, Left message with the PCP nurse about the pt' s discharge , and f/u appt, Discussed with pt, small frequent meals, avoid being empty stomach for prolonged periods, keep Blood glu log at home, advised diet and lifestyle modifications, Take meds compliantly, Diagnosis - Discharge Diagnosis (1) Hypoglycemia Status: Resolved (2) Acute renal failure Status: Resolved (3) Hypothyroidism Status: Chronic (4) Hypertension Status: Chronic (5) Insulin dependent diabetes mellitus Status: Chronic (6) Status post kidney transplant Status: Chronic (7) Connective tissue disease Status: Chronic (8) GERD (gastroesophageal reflux disease) Status: Chronic Specialty Discharge - Follow Up or Referrals Follow up with: Thai Gonsalves MD [Primary Care Provider] - 04/11/17 1:30 pm (With CBC and BMP. Thyroid meds decreased during hospital stay, , need TSH check in 6-8 weeks, ) Discharge Plan - Discharge Data Disposition: Disch To Home/Self Care Condition at Discharge: Stable Discharge Diet: diabetic diet, low salt diet Activity: resume usual activities as tolerated - Discharge Medications New Ciprofloxacin Tab [Cipro Tab] 250 mg PO Q12HR #14 tablet Levothyroxine Tab [Synthroid Tab] 75 mcg PO DAILY@0700 #30 tablet Pantoprazole Tab [Protonix Tab] 40 mg PO DAILY #30 tablet Continue Potassium Chloride 8 meq PO BID predniSONE TAB [PredniSONE] 5 mg PO QAM Colchicine [Colcrys] 0.6 mg PO BID Mycophenolate Sodium [Mycophenolic Acid] 720 mg PO BID Atorvastatin [Lipitor] 10 mg PO BEDTIME Insulin Detemir [Levemir FlexPen] 65 unit SUBCUT BID Amlodipine Besylate 10 mg PO QAM Tacrolimus [Tacrolimus Cap] 5 mg PO BID Discontinued Esomeprazole Magnesium [Nexium] 40 mg PO QAM Levothyroxine Tab [Synthroid Tab] 100 mcg PO DAILY@0700 - Follow Up or Referral Follow Up: Thai Gonsalves MD [Primary Care Provider] - 04/11/17 1:30 pm (With CBC and BMP. Thyroid meds decreased during hospital stay, , need TSH check in 6-8 weeks, ) - Forms/Instructions Exam - Constitutional Vitals: Period Temp Pulse Resp BP Sys/Block Pulse Ox Last 24 Hr 96.2 F-97.7 F 79-86 17-20 105-124/49-78 91-96 Exam: Examination: GENERAL: Alert, oriented, in no acute distress , female pt, sitting up, ambulating well HEENT: normal, hearing,PERRLA. EOMI. pale conjunctiva NECK: Neck is supple. No JVD. No carotid bruit. No thyromegaly. CVS: Regular rate and rhythm. S1 and S2 are normal. RESPIRATORY: Clear to ausculation bilaterally , No wheezes, rales or rhonchi. ABDOMEN: Soft and nontender. Bowel sounds are present. No hepatosplenomegaly. EXT: No edema. 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 Motor strength normal. Discharge Results Procedures and tests throughout hospitalization: Pending Orders 03/31/17 22:51 Blood Culture Routine 04/01/17 20:10 Stool Culture Routine 04/02/17 Urine Culture Routine 04/02/17 13:03 Tacrolimus (Prograf) Stat 04/03/17 04:00 NM gastric emptying study IN AM 04/03/17 09:30 CBC [Comp Blood Count Auto Diff] Stat Labs on day of discharge: Labs from last 24 hours 04/03/17 04/03/17 04/02/17 06:55 06:16 23:50 Sodium 143 Potassium 4.5 Chloride 108 H Carbon Dioxide 22 Anion Gap 17.5 H BUN 28 H Creatinine 1.80 H GFR Calculation 35 BUN/Creatinine Ratio 15.00 Glucose 127 H POC Glucose 112 H 190 H Calculated Osmolality 292.0 Calcium 7.9 L 04/02/17 04/02/17 04/02/17 20:03 17:07 13:00 Sodium Potassium Chloride Carbon Dioxide Anion Gap BUN Creatinine GFR Calculation BUN/Creatinine Ratio Glucose POC Glucose 135 H 129 H 111 H Calculated Osmolality Calcium Preliminary micro results at discharge 04/02/17 Unknown Urine Culture - Preliminary Urine,In and Out Cath No Growth at 24 hours. 04/02/17 03:21 Stool Culture - Preliminary Stool No enteric pathogens at 24 hrs 03/31/17 22:51 Blood Culture - Preliminary Blood Gram Positive Cocci 03/31/17 22:51 Blood Culture - Preliminary Blood No growth at 1 day DS: Provider Date of admission: 03/30/17 18:59 Primary care physician: Thai Gonsalves MD Attending physician on admission: Thai Gonsalves MD Consults: 03/30/17 20:09 Consult to Physician [CONS] Routine Comment: Intractable nausea and vomiting with diarrhea Consulting Provider: Sylvester Small V Person Notified: Dr. Small Date Notified: 03/31/17 Time Notified: 08:23 03/30/17 23:15 Consult to Dietitian [CONS] Routine Reason for Dietitian: Dietary Consult 04/02/17 08:32 Consult to Physician [CONS] Routine Comment: Chronic renal failure. Status post transplant Consulting Provider: Derek Pedroza Notified: Dr. Tenorio Date Notified: 03/31/17 Time Notified: 10:42 Discharging clinician: Rashaad Smith MD
[2017-04-03 09:17] LABS: Basophils % 0.1 % (0.0-0.8); Eosinophils # 0.1 10*3/uL (0.0-0.87); Eosinophils % 0.4 % (0.00-10.9); Hematocrit 33.2 VOL% (35.7-47.0); Hemoglobin 9.9 GM/DL (12.0-16.0); Immature Granulocytes % 0.7 %; Immature Granulocytes Absolute 0.08 #; Lymphocytes # 1.1 10*3/uL (1.4-4.0); Lymphocytes % 8.9 % (21.3-54.2); Mean Corpuscular HGB Conc 29.8 GM/DL (32-36); Mean Corpuscular Hemoglobin 27 PG (27-34); Mean Platelet Volume 9.5 FL (9.6-12.0); Monocytes # 0.4 10*3/uL (0.11-0.8); Monocytes % 3.6 % (1.7-12.7); Neutrophils # 10.2 10*3/uL (1.4-7.4); Neutrophils % 86.3 % (38.7-73.9); Platelet Count 247 T/CUMM (130-400); Red Blood Count 3.65 MC/CUMM (3.8-5.5); Red Cell Distribution Width 16.4 % (9.3-17.3); White Blood Count 11.8 T/CUMM (4-12)
--- NOTE | 2017-04-03 09:51 | Gastrointestinal Progress Note ---
<Shabnam Galeanoher Josy - Last Filed: 04/03/17 09:49> Assessment and Plan (1) Nausea & vomiting Status: Acute Assessment and plan: 04/03-EGD findings noted as below. For gastric emptying scan today. No complaints of this morning. For possible discharge home today. Plan an addendum to followed by Dr. Dillon. Current Visit: Yes Gastroenterology - PN: Subj Interval history: CC: Nausea and vomiting Patient is seen, awake and alert, sitting up in bed. States she is feeling a little better today. She denies any nausea or vomiting and denies any abdominal pain. EGD on yesterday noted to show GERD with no source of her recurrent nausea vomiting. She has gastric emptying scan scheduled for this morning and results are currently pending for this. Abdomen is soft, nontender. She is noted to be tentatively discharged home today. ROS: Denies shortness breath or chest pain Exam (Progress Note) - Constitutional Vitals: Period Temp Pulse Resp BP Sys/Block Pulse Ox Last 24 Hr 96.2 F-97.7 F 79-86 17-20 105-124/49-78 91-96 General appearance: normal weight, no acute distress - Head Head exam: Present: normal inspection, normocephalic - Eye Eye exam: Present: other (Lids and conjunctive are unremarkable). Absent: scleral icterus - ENT ENT exam: Present: normal exam, normal oropharynx - Neck Neck exam: Present: normal inspection - Respiratory Respiratory exam: Present: clear to auscultation bilaterally. Absent: rales, rhonchi, wheezes - Cardiovascular Cardiovascular exam: Present: regular rate and rhythm. Absent: diastolic murmur , JVD, systolic murmur - GI/Abdominal GI/Abdominal exam: Present: normal bowel sounds, soft. Absent: ascites, distended, mass, organomegaly, tenderness - Extremities Exam Extremities exam: Present: normal inspection, full ROM - Back Exam Back exam: Present: normal inspection - Neurological Exam Neurological exam: Present: alert, oriented X3 - Psychiatric Psychiatric exam: Present: normal affect, normal mood - Skin Skin exam: Present: normal color, warm, dry Results - Labs CBC & BMP: 04/03/17 06:16 04/03/17 06:16 Lab Results: I have reviewed the past 24 hour labs Specialty Discharge - Follow Up or Referrals Follow up with: Thai Gonsalves MD [Primary Care Provider] - 1 Week <Davis Dillon - Last Filed: 04/03/17 10:17> Exam (Progress Note) - Constitutional Vitals: Period Temp Pulse Resp BP Sys/Block Pulse Ox Last 24 Hr 96.2 F-97.7 F 79-86 17-20 105-124/49-78 91-96 Results - Labs CBC & BMP: 04/03/17 06:16 04/03/17 06:16
[2017-04-03] MEDS: metroNIDAZOLE 500 MG TABLET PO SCH ×2 (10:13→12:38)
--- NOTE | 2017-04-03 11:33 | Nephrology Progress Note ---
Nephrology - PN: Subj Interval history: She is undergoing gastric emptying study at present. Nurses report nausea has resolved. She has been afebrile Exam (PN)-Nephrology - Vital Signs Vital signs: Period Temp Pulse Resp BP Sys/Block Pulse Ox Last 24 Hr 96.2 F-97.7 F 79-86 17-20 105-124/49-73 91-96 Exam: ENT: Normal Cardiovascular: Regular rate and rhythm. No murmur rub or gallop Lungs: Clear Extremities: No edema - Lab 04/03/17 06:16 04/03/17 06:16 Most recent lab results Calcium 7.9 MG/DL (8.5-10.1) L 04/03/17 06:16 Phosphorus 2.4 MG/DL (2.5-4.9) L 04/02/17 06:32 Magnesium 1.3 MG/DL (1.8-2.4) L 04/02/17 06:32 Assessment and Plan (1) Acute renal failure Status: Acute Assessment and plan: 56-year-old woman with: * ESRD secondary to mixed connective tissue disease. * Renal transplant * CRF stage III * Acute on chronic renal failure. Renal function is near her baseline. Volume status now normal. Tacrolimus level pending * UTI. Urine culture is negative thus far. However culture was obtained after Cipro was started. Recommend continuing Cipro for total of 10 days * Nausea/vomiting/diarrhea. Symptoms have improved. EGD noted. Gastric emptying study underway * Diabetes * Hypertension * Hypothyroidism Current Visit: Yes (2) Nausea & vomiting Status: Acute Current Visit: Yes (3) Connective tissue disease Status: Chronic Current Visit: Yes (4) Hypertension Status: Chronic Current Visit: Yes (5) Hypothyroidism Status: Chronic Current Visit: Yes (6) Insulin dependent diabetes mellitus Status: Chronic Current Visit: Yes (7) Status post kidney transplant Status: Chronic Current Visit: Yes Specialty Discharge - Follow Up or Referrals Follow up with: Thai Gonsalves MD [Primary Care Provider] - 1 Week (With CBC and BMP. )
--- NOTE | 2017-04-03 11:42 | Nuclear Medicine Report ---
Exam: NM gastric emptying study Date: 04/03/2017 4:00 AM Comparison: None Indication: Diabetic, recurrent nausea and vomiting Technique:[Patient given 500 uCi technetium 99m sulfur colloid orally mixed with scrambled eggs and toast. Gastric empty scans were obtained. Findings: T1/2 equals 92.61 minutes. At 74 minutes, there is 86% gastric emptying. At 157 minutes, there is 89% gastric emptying, at 193 minutes, there is 90% gastric emptying.] Reflux of the isotope into the esophagus. Impression: Borderline T1/2 equals 92.61 minutes. However at 193 minutes, there is 90% gastric emptying. Gastroesophageal reflux. PROCEDURE INTERPRETED AT [facility] DEPARTMENT OF RADIOLOGY Final Report Signed by: Dr. Izzy Mancera
[2017-04-03 12:18] VITALS: BP 103/63
[2017-04-03] MEDS: CIPROFLOXACIN 250 MG TABLET PO SCH (12:37)
[2017-04-03] MEDS: predniSONE 5 MG TABLET PO SCH (12:37)
[2017-04-03] MEDS: POTASSIUM CHLORIDE 8 MEQ CAPSULE PO SCH (12:37)
[2017-04-03] MEDS: PANTOPRAZOLE 40 MG TABLET PO SCH (12:38)
[2017-04-03] MEDS: TACROLIMUS 5 MG PO SCH (12:38)
[2017-04-03] MEDS: MYCOPHENOLATE 180 MG TABLET PO SCH (14:23)
== END 2017-04-03 15:01 | disposition home or self-care (01) | DRG 683 ==
LOC: N.ED 15:57 → SUATTDRO 18:11 → N.EDINP 18:11 → N.2E 19:04
PROVIDERS: ADMIT Internal Medicine; ATTEND Internal Medicine

== ENCOUNTER 2017-04-05 12:55 | Observation (INO) ==
[2017-04-05] MEDS ORDERED: DEXTROSE 5% NACL 0.45% 1,000 ML IV SCH (13:30)
--- NOTE | 2017-04-05 13:52 | Emergency Department Note ---
Arrival - Arrival Chief Complaint: Altered Mental Status Stated Complaint: confused and sugar checked and BG machine says low ED Nursing Triage Note: EMS reports that they were called due to pt being confused and Blood glucose monitor says low. EMS reports when they arrived Blood Glucose was 23 and was given an amp D50 and Blood glucose increased to 126 and prior to arrival BG 118. Pt alert and oriented at triage. BLOOD GLUCOSE 56 AT TRIAGE AND PT ASYMPTOMATIC Mode of Arrival: Stretcher Time Seen by Provider: 04/05/17 13:40 - History of Present Illness HPI Narrative: Patient presents to the ER today by ambulance for confusion and low blood sugar. When EMS arrived to her house, her blood sugar was 23. She received 1 amp of D50 in the back of the ambulance. On arrival to the room her blood sugar was 56. She is awake and alert now. She states she was here on Sunday for the same thing and admitted to the hospital. She states she is a type II diabetic that takes 65 units of Levemir twice a day. She reports that she keeps a close eye on her blood sugar and she did eat today. She does not understand why her blood sugar dropped again. She denies any pain or any other problems. Allergies-Bactrim, mycin drugs, and Procardia PMH-type 2 diabetes, dyslipidemia, hypertension, GERD, kidney transplant in 2007 Date of Last Menstrual Period: MENOPAUSE Allergies/Adverse Reactions: Allergies Allergy/AdvReac Type Severity Reaction Status Date / Time sulfamethoxazole Allergy Unknown/Unable Verified 03/30/17 16:07 [From Bactrim] to obtain trimethoprim [From Bactrim] Allergy Unknown/Unable Verified 03/30/17 16:07 to obtain MYCINS DRUGS AdvReac RASH Uncoded 04/05/17 13:06 Home Medications: Home Medications Medication Instructions Recorded Confirmed Type Amlodipine Besylate 10 mg PO QAM 03/30/17 04/05/17 History Atorvastatin [Lipitor] 10 mg PO BEDTIME 03/30/17 04/05/17 History Colchicine [Colcrys] 0.6 mg PO BID PRN 03/30/17 04/05/17 History Insulin Detemir [Levemir FlexPen] 65 unit SUBCUT BIDAC 03/30/17 04/05/17 History Mycophenolate Sodium [Mycophenolic 720 mg PO BID 03/30/17 04/05/17 History Acid] Potassium Chloride 8 meq PO BID 03/30/17 04/05/17 History Tacrolimus [Tacrolimus Cap] 5 mg PO BID 03/30/17 04/05/17 History predniSONE TAB [PredniSONE] 5 mg PO QAM 03/30/17 04/05/17 History Ciprofloxacin Tab [Cipro Tab] 250 mg PO Q12HR #14 tablet 04/03/17 04/05/17 Rx Levothyroxine Tab [Synthroid Tab] 75 mcg PO DAILY@0700 #30 tablet 04/03/1704/05 Rx Pantoprazole Tab [Protonix Tab] 40 mg PO QAM 04/05/17 04/05/17 History Medical,Surgical,& Family Hx - Medical History Cardio: History of: Hypertension Neurology: No history of: Seizures Endocrine: History of: Diabetes Mellitus (IDDM), Dyslipidemia, Thyroid Disorder (Hypothyroidism) Rheumatology: History of;: Rheumatological Problems (Mixed connective tissue disease) Renal: History of: Renal Failure (Status post renal transplant in 2007), Renal Problems (KIDNEY TRANSPLANT MAR 2008) Genitourinary: History of: Problems Gastrointestinal: History of: GERD - Surgical History Abdominal Surgeries: Surgical HX of: Abdominal Surgery (Renal transplant at [facility] in 2007), Cholecystectomy Reproductive Surgeries: Surgical HX of;: Section (Twice) - Family History Family History: Denies;: Family Diabetes - Social History Smoking Status: Never smoker Frequency of Alcohol Use: None Type of Drug Use: None Exam Vital Signs: Vital Signs Temperature 97.4 F L 04/05/17 12:56 Pulse Rate 84 04/05/17 16:46 Respiratory Rate 20 04/05/17 16:46 Blood Pressure 111/56 04/05/17 16:46 O2 Sat by Pulse Oximetry 97 04/05/17 16:46 Course Course Narrative: 1530: informed patient about lab results and the need for admission, she voiced her understanding. 1540: spoke with hospitalist group about possible admission, they will come see her 1700: Dr. Warren at Results - Labs CBC & BMP: 04/05/17 14:03 04/05/17 14:03 Labs: Laboratory Tests 04/05/17 14:03 WBC 9.2 RBC 3.16 L Hgb 8.7 L Hct 28.8 L MCV 91.1 MCH 28 MCHC 30.2 L RDW 16.8 Plt Count 177 D MPV 9.0 L Laboratory Tests 04/05/17 04/05/17 04/05/17 13:03 13:54 14:18 POC Glucose 56 L 32 L* 155 H Disposition Clinical Impression: Hypoglycemia Case discussed with: patient Disposition: Still a Patient Condition: Stable Time of Disposition: 17:41
[2017-04-05] MEDS ORDERED: DEXTROSE 50% 25 GM/50 ML VIAL IV STA ×2 (13:56→16:34)
[2017-04-05] MEDS ORDERED: DEXTROSE 50% 25 GM/50 ML SYRINGE IV ONE ×2 (13:57→16:32)
[2017-04-05 14:19] LABS: Basophils % 0.1 % (0.0-0.8); Eosinophils # 0.1 10*3/uL (0.0-0.87); Hematocrit 28.8 VOL% (35.7-47.0); Hemoglobin 8.7 GM/DL (12.0-16.0); Immature Granulocytes Absolute 0.09 #; Lymphocytes # 0.6 10*3/uL (1.4-4.0); Lymphocytes % 6.5 % (21.3-54.2); Mean Corpuscular HGB Conc 30.2 GM/DL (32-36); Mean Corpuscular Hemoglobin 28 PG (27-34); Mean Corpuscular Volume 91.1 FL (87-102); Monocytes # 0.5 10*3/uL (0.11-0.8); Monocytes % 5.9 % (1.7-12.7); Neutrophils # 7.9 10*3/uL (1.4-7.4); Neutrophils % 85.5 % (38.7-73.9); Platelet Count 177 T/CUMM (130-400); Red Blood Count 3.16 MC/CUMM (3.8-5.5); Red Cell Distribution Width 16.8 % (9.3-17.3); White Blood Count 9.2 T/CUMM (4-12)
[2017-04-05 14:56] LABS: Alanine Aminotransferase 70 U/L (13-56); Albumin 2.5 G/DL (3.4-5.0); Alkaline Phosphatase 90 U/L (45-117); Aspartate Amino Transferase 107 U/L (0-37); Bilirubin,Total < 0.39 MG/DL (0.2-1.0); Blood Urea Nitrogen 26 MG/DL (7-18); Calcium 7.9 MG/DL (8.5-10.1); Glucose 154 MG/DL (74-106); Osmolality,Calculated 295.7 MOS/KG (273-304); Potassium 3.8 MMOL/L (3.5-5.1); Sodium 145 MMOL/L (136-145); Total Protein 5.4 G/DL (6.4-8.3)
[2017-04-05] MEDS ORDERED: DEXTROSE 5% 1,000 ML IV SCH (16:00)
[2017-04-05] MEDS ORDERED: DEXTROSE 50% 25 GM/50 ML SYRINGE IV PRN (17:47)
[2017-04-05] MEDS ORDERED: ONDANSETRON 4 MG/2 ML VIAL IV PRN (17:47)
[2017-04-05] MEDS ORDERED: ACETAMINOPHEN 325 MG TABLET PO PRN (17:47)
[2017-04-05] MEDS ORDERED: GLUCAGON 1 MG VIAL IV ONE (17:53)
[2017-04-05] MEDS ORDERED: GLUCAGON 1 MG VIAL IM PRN (19:32)
[2017-04-05] MEDS: DEXTROSE 5% NACL 0.45% 1,000 ML IV SCH (19:36)
--- NOTE | 2017-04-05 19:58 | Family Practice History&Phys ---
Addendum entered and electronically signed by Horace Warren DO 04/06/17 13:11 : 901 17: An addendum to my discharge summary.: I have already done the discharge on this patient. However I failed to mention that we discharged her on Bacid 1 p.o. twice daily and also gave her Lomotil to take 1 daily only as needed for severe diarrhea. Only gave her 10 of these. She is to otherwise take Imodium antidiarrheal, if she has any real problems go to the emergency room. I did tell her all of this information and also gave her a diabetic education sheet that was created by the diabetic management team. Original Note: Assessment and Plan (1) Hypoglycemia Status: Resolved Assessment and plan: 04/05/2017 at 7:59 PM has been treated for hypoglycemia. I have given her a milligram of glucagon in the room. Her last blood sugar I saw was 112 Current Visit: No (2) Insulin dependent diabetes mellitus Status: Chronic Assessment and plan: 04/05/2017 as above eating or for hypo-glycemia. Current Visit: No (3) Nausea & vomiting Status: Acute Assessment and plan: 04/05/2017: No nausea vomiting at present Current Visit: No History of Present Illness Chief complaint: Hypoglycemia History of present illness: Ms. Delgado is a 56 year old female Has a history of having episodes of hypoglycemia periodically. She was in here very recently with 1. Today states that her blood sugars went down in the 30s she has been given glucose and was transferred to the hospital because of continued low blood sugars. In the fast track this did not improve and required both D50 and D5 to get her blood sugars up. She is very alert and oriented at this time answers all questions denies any recent illness. Is not had any chest pain shortness of breath abdominal discomfort flank pain dysuria or other constitutional symptoms. I am going to put her in the hospital water tonight get diabetic education on her. She is on very high doses of long- acting insulin and will see how we will going to have to adjust this to make her blood sugars within a tolerable limit. Home Medications Medication Instructions Recorded Confirmed Type Atorvastatin [Lipitor] 10 mg PO BEDTIME 03/30/17 04/05/17 History Colchicine [Colcrys] 0.6 mg PO BID PRN 03/30/17 04/05/17 History Insulin Detemir [Levemir FlexPen] 75 unit SUBCUT BIDAC 03/30/17 04/05/17 History Mycophenolate Sodium [Mycophenolic 720 mg PO BID 03/30/17 04/05/17 History Acid] Potassium Chloride 8 meq PO BID 03/30/17 04/05/17 History predniSONE TAB [PredniSONE] 5 mg PO QAM 03/30/17 04/05/17 History Ciprofloxacin Tab [Cipro Tab] 250 mg PO Q12HR #14 tablet 04/03/17 04/05/17 Rx Cholecalciferol (Vitamin D3) 1,000 unit PO DAILY 04/05/17 04/05/17 History [Vitamin D3] Insulin Aspart [NovoLOG] 12 unit SUBCUT TID 04/05/17 04/05/17 History Levothyroxine Tab [Synthroid Tab] 100 mcg PO DAILY@0700 04/05/17 04/05/17 History Pantoprazole Tab [Protonix Tab] 40 mg PO QAM 04/05/17 04/05/17 History Potassium Chloride [Klor-Con 8] 8 meq PO BID 04/05/17 04/05/17 History Tacrolimus [Tacrolimus Cap] 5 mg PO BID 04/05/17 04/05/17 History amLODIPine [Norvasc] 5 mg PO DAILY 04/05/17 04/05/17 History Allergies Allergy/AdvReac Type Severity Reaction Status Date / Time sulfamethoxazole Allergy Unknown/Unable Verified 03/30/17 16:07 [From Bactrim] to obtain trimethoprim [From Bactrim] Allergy Unknown/Unable Verified 03/30/17 16:07 to obtain MYCINS DRUGS AdvReac RASH Uncoded 04/05/17 13:06 12 point system: reviewed and no additional remarkable complaints except as stated (As mentioned above) Medical,Surgical,& Family Hx - Medical History Cardio: History of: Hypertension Neurology: No history of: Seizures Endocrine: History of: Diabetes Mellitus (IDDM), Dyslipidemia, Thyroid Disorder (Hypothyroidism) Rheumatology: History of;: Rheumatological Problems (Mixed connective tissue disease) Renal: History of: Renal Failure (Status post renal transplant in 2007), Renal Problems (KIDNEY TRANSPLANT MAR 2008) Genitourinary: History of: Problems Gastrointestinal: History of: GERD - Surgical History Abdominal Surgeries: Surgical HX of: Abdominal Surgery (Renal transplant at [facility] in 2007), Cholecystectomy Reproductive Surgeries: Surgical HX of;: Section (Twice) - Family History Family History: Denies;: Family Diabetes - Social History Smoking Status: Never smoker Frequency of Alcohol Use: None Type of Drug Use: None Exam - Constitutional Vitals: Period Temp Pulse Resp BP Sys/Block Pulse Ox Last 24 Hr 97.3 F-97.4 F 84-95 20-20 111-130/56-81 97-98 Exam: Generally very alert and oriented answers all questions appropriately. No distress at all denies any pain. She has a relatively good skin turgor and please see lab. HEENT neck is supple trachea midline Lungs clear no shortness of breath Cardiovascular no gallop or rub 1 out of 6 systolic ejection murmur Abdomen soft nondistended Extremities generally good turgor. Patient admits that she has been drinking a lot of fluids Results - Labs CBC & BMP: 04/05/17 14:03 04/05/17 14:03
[2017-04-05] MEDS ORDERED: ATORVASTATIN 10 MG TABLET PO SCH (21:00)
[2017-04-05] MEDS ORDERED: TACROLIMUS 5 MG PO SCH (21:00)
[2017-04-05] MEDS ORDERED: POTASSIUM CHLORIDE 8 MEQ PO SCH (21:00)
[2017-04-05] MEDS: POTASSIUM CHLORIDE 8 MEQ CAPSULE PO SCH (21:25)
[2017-04-05] MEDS: DOCUSATE SODIUM 100 MG CAPSULE PO SCH ×2 (21:25→21:33)
[2017-04-05] MEDS: COLCHICINE 0.6 MG TABLET PO PRN (21:25)
[2017-04-05] MEDS: CIPROFLOXACIN 250 MG TABLET PO SCH (21:26)
[2017-04-05] MEDS: INSULIN REGULAR 100 UNIT/ML SUBCUT SCH (21:26)
[2017-04-05] MEDS: MYCOPHENOLATE 180 MG TABLET PO SCH (21:31)
[2017-04-06] MEDS: DEXTROSE 5% NACL 0.45% 1,000 ML IV SCH (03:53)
[2017-04-06] MEDS ORDERED: ZINC OXIDE PASTE 113 GM TUBE TOP PRN (04:25)
[2017-04-06 06:03] LABS: Basophils % 0.1 % (0.0-0.8); Eosinophils # 0.1 10*3/uL (0.0-0.87); Eosinophils % 0.8 % (0.00-10.9); Hematocrit 29.1 VOL% (35.7-47.0); Hemoglobin 8.8 GM/DL (12.0-16.0); Immature Granulocytes % 1.3 %; Immature Granulocytes Absolute 0.13 #; Lymphocytes # 1.2 10*3/uL (1.4-4.0); Lymphocytes % 11.7 % (21.3-54.2); Mean Corpuscular HGB Conc 30.2 GM/DL (32-36); Mean Corpuscular Hemoglobin 27 PG (27-34); Mean Corpuscular Volume 90.7 FL (87-102); Mean Platelet Volume 9.7 FL (9.6-12.0); Monocytes # 0.6 10*3/uL (0.11-0.8); Monocytes % 6.2 % (1.7-12.7); Neutrophils % 79.9 % (38.7-73.9); Platelet Count 180 T/CUMM (130-400); Red Blood Count 3.21 MC/CUMM (3.8-5.5)
[2017-04-06 06:32] LABS: Albumin 2.4 G/DL (3.4-5.0); Bilirubin,Total 1.1 MG/DL (0.2-1.0); Calcium 7.7 MG/DL (8.5-10.1); Osmolality,Calculated 292.7 MOS/KG (273-304); Potassium 4.4 MMOL/L (3.5-5.1); Risk Ratio 1.32; Total Protein 5.1 G/DL (6.4-8.3); VLDL CHOLESTEROL 13.4 MG/DL
[2017-04-06] MEDS ORDERED: LEVOTHYROXINE 100 MCG TABLET PO SCH (07:00)
[2017-04-06] MEDS ORDERED: CHOLECALCIFEROL 1,000 UNIT TABLET PO SCH (09:00)
[2017-04-06] MEDS ORDERED: predniSONE 5 MG TABLET PO SCH (09:00)
[2017-04-06] MEDS ORDERED: PANTOPRAZOLE 40 MG TABLET PO SCH (09:00)
[2017-04-06] MEDS ORDERED: amLODIPine 5 MG TABLET PO SCH (09:00)
[2017-04-06] MEDS: POTASSIUM CHLORIDE 8 MEQ CAPSULE PO SCH (10:57)
[2017-04-06] MEDS: CIPROFLOXACIN 250 MG TABLET PO SCH (10:59)
[2017-04-06] MEDS: MYCOPHENOLATE 180 MG TABLET PO SCH (10:59)
[2017-04-06] MEDS: DOCUSATE SODIUM 100 MG CAPSULE PO SCH ×2 (11:00→20:57)
[2017-04-06] MEDS: COLCHICINE 0.6 MG TABLET PO PRN (11:00)
--- NOTE | 2017-04-06 11:58 | Discharge Summary ---
Hospital Course - Hospital Course Hospital Course: Patient came in with hypoglycemia. She also had been complaining of some diarrhea which she states she has had for approximately 6 months. She does have a history of kidney transplant, there is been some concern that the medications she is on from that may be causing a lot of her diarrhea. Had been using some Imodium without a lot of success. She is concerned that this may be causing some of her hypoglycemia that her foods "moving right through me". Nonetheless we got her blood sugars up to within normal limits and got diabetic education is severe. We have her on a sliding scale that we gave her today to go home on. This includes NovoLog SSI based on blood sugars. She is also to decrease her Levemir to 40 units with breakfast and 40 units with supper. At this time is resting well no acute distress is very alert and oriented is well-hydrated and lab overall was grossly normal. She is able to ambulate without difficulty and is post C Dr. Gonsalves next Sunday Diagnosis - Discharge Diagnosis (1) Insulin dependent diabetes mellitus Status: Chronic (2) Nausea & vomiting Status: Resolved Specialty Discharge - Follow Up or Referrals Follow up with: Thai Gonsalves MD [Primary Care Provider] - 1 Week (Please call the office on Sunday to set up an appointment. ) Discharge Plan - Discharge Data Disposition: Disch To Home/Self Care Condition at Discharge: Stable Discharge Diet: diabetic diet Activity: increase activity as tolerated Hygiene: no restrictions Weight Bearing at Discharge: weight bear as tolerated Driving: no restrictions Contact your physician if you experience:: Nausea/Vomiting - Discharge Medications New Insulin Aspart [NovoLOG] See Protocol SUBCUT ACHS #1 cartridge Zinc Oxide Paste [Desitin Paste] 1 applic TOP PRN PRN applic PRN Reason: Diaper Rash Continue Potassium Chloride 8 meq PO BID predniSONE TAB [PredniSONE] 5 mg PO QAM Mycophenolate Sodium [Mycophenolic Acid] 720 mg PO BID Atorvastatin [Lipitor] 10 mg PO BEDTIME Pantoprazole Tab [Protonix Tab] 40 mg PO QAM Cholecalciferol (Vitamin D3) [Vitamin D3] 1,000 unit PO DAILY Tacrolimus [Tacrolimus Cap] 5 mg PO BID amLODIPine [Norvasc] 5 mg PO DAILY Potassium Chloride [Klor-Con 8] 8 meq PO BID Levothyroxine Tab [Synthroid Tab] 100 mcg PO DAILY@0700 Ciprofloxacin Tab [Cipro Tab] 250 mg PO Q12HR #14 tablet Changed Colchicine [Colcrys] 0.6 mg PO DAILY #0 Insulin Detemir [Levemir FlexPen] 40 unit SUBCUT BIDAC #1 syringe Discontinued Insulin Aspart [NovoLOG] 12 unit SUBCUT TID - Follow Up or Referral Follow Up: Thai Gonsalves MD [Primary Care Provider] - 1 Week (Please call the office on Sunday to set up an appointment. ) - Forms/Instructions Instructions: Diabetic Hypoglycemia (DC) Exam - Constitutional Vitals: Period Temp Pulse Resp BP Sys/Block Pulse Ox Last 24 Hr 96.6 F-98.0 F 82-95 18-20 108-138/56-81 91-98 Discharge Results Procedures and tests throughout hospitalization: Pending Orders 04/05/17 17:47 Urinalysis Stat Labs on day of discharge: Labs from last 24 hours 04/06/17 04/06/17 04/06/17 09:53 08:11 05:45 WBC RBC Hgb Hct MCV MCH MCHC RDW Plt Count MPV Neut % (Auto) Lymph % (Auto) [place] % (Auto) Eos % (Auto) Baso % (Auto) Neut # (Auto) Lymph # (Auto) [place] # (Auto) Eos # (Auto) Baso # (Auto) Immature Gran % Nucleated RBC % Immature Gran # Nucleated RBCs # Immature Plt Fraction Sodium Potassium Chloride Carbon Dioxide Anion Gap BUN Creatinine GFR Calculation BUN/Creatinine Ratio Glucose POC Glucose 181 H 170 H 174 H Calculated Osmolality Calcium Total Bilirubin AST ALT Alkaline Phosphatase Total Protein Albumin Globulin Albumin/Globulin Ratio Triglycerides Cholesterol LDL Cholesterol VLDL Cholesterol HDL Cholesterol Heart Disease Risk Ratio 04/06/17 04/06/17 04/06/17 05:11 05:11 04:08 WBC 10.0 RBC 3.21 L Hgb 8.8 L Hct 29.1 L MCV 90.7 MCH 27 MCHC 30.2 L RDW 17.0 Plt Count 180 MPV 9.7 Neut % (Auto) 79.9 H Lymph % (Auto) 11.7 L [place] % (Auto) 6.2 Eos % (Auto) 0.8 Baso % (Auto) 0.1 Neut # (Auto) 8.0 H Lymph # (Auto) 1.2 L [place] # (Auto) 0.6 Eos # (Auto) 0.1 Baso # (Auto) 0.0 Immature Gran % 1.3 Nucleated RBC % 0.0 Immature Gran # 0.13 Nucleated RBCs # 0.00 Immature Plt Fraction 0.0 Sodium 145 Potassium 4.4 Chloride 113 H Carbon Dioxide 23 Anion Gap 13.4 BUN 22 H Creatinine 1.80 H GFR Calculation 36 BUN/Creatinine Ratio 12.00 Glucose 143 H POC Glucose 163 H Calculated Osmolality 292.7 Calcium 7.7 L Total Bilirubin 1.10 H AST 67 H ALT 62 H Alkaline Phosphatase 87 Total Protein 5.1 L Albumin 2.4 L Globulin 2.7 Albumin/Globulin Ratio 0.8 L Triglycerides 67 Cholesterol 95 LDL Cholesterol 18.0 VLDL Cholesterol 13.4 HDL Cholesterol 72 H Heart Disease Risk Ratio 1.32 04/06/17 04/06/17 04/05/17 04:03 01:34 23:41 WBC RBC Hgb Hct MCV MCH MCHC RDW Plt Count MPV Neut % (Auto) Lymph % (Auto) [place] % (Auto) Eos % (Auto) Baso % (Auto) Neut # (Auto) Lymph # (Auto) [place] # (Auto) Eos # (Auto) Baso # (Auto) Immature Gran % Nucleated RBC % Immature Gran # Nucleated RBCs # Immature Plt Fraction Sodium Potassium Chloride Carbon Dioxide Anion Gap BUN Creatinine GFR Calculation BUN/Creatinine Ratio Glucose POC Glucose < 20 L* 159 H 118 H Calculated Osmolality Calcium Total Bilirubin AST ALT Alkaline Phosphatase Total Protein Albumin Globulin Albumin/Globulin Ratio Triglycerides Cholesterol LDL Cholesterol VLDL Cholesterol HDL Cholesterol Heart Disease Risk Ratio 04/05/17 04/05/17 04/05/17 21:42 19:03 17:39 WBC RBC Hgb Hct MCV MCH MCHC RDW Plt Count MPV Neut % (Auto) Lymph % (Auto) [place] % (Auto) Eos % (Auto) Baso % (Auto) Neut # (Auto) Lymph # (Auto) [place] # (Auto) Eos # (Auto) Baso # (Auto) Immature Gran % Nucleated RBC % Immature Gran # Nucleated RBCs # Immature Plt Fraction Sodium Potassium Chloride Carbon Dioxide Anion Gap BUN Creatinine GFR Calculation BUN/Creatinine Ratio Glucose POC Glucose 92 112 H 113 H Calculated Osmolality Calcium Total Bilirubin AST ALT Alkaline Phosphatase Total Protein Albumin Globulin Albumin/Globulin Ratio Triglycerides Cholesterol LDL Cholesterol VLDL Cholesterol HDL Cholesterol Heart Disease Risk Ratio 04/05/17 04/05/17 04/05/17 15:24 14:18 14:03 WBC 9.2 RBC 3.16 L Hgb 8.7 L Hct 28.8 L MCV 91.1 MCH 28 MCHC 30.2 L RDW 16.8 Plt Count 177 D MPV 9.0 L Neut % (Auto) 85.5 H Lymph % (Auto) 6.5 L [place] % (Auto) 5.9 Eos % (Auto) 1.0 Baso % (Auto) 0.1 Neut # (Auto) 7.9 H Lymph # (Auto) 0.6 L [place] # (Auto) 0.5 Eos # (Auto) 0.1 Baso # (Auto) 0.0 Immature Gran % 1.0 Nucleated RBC % 0.0 Immature Gran # 0.09 Nucleated RBCs # 0.00 Immature Plt Fraction 0.0 Sodium Potassium Chloride Carbon Dioxide Anion Gap BUN Creatinine GFR Calculation BUN/Creatinine Ratio Glucose POC Glucose 60 L 155 H Calculated Osmolality Calcium Total Bilirubin AST ALT Alkaline Phosphatase Total Protein Albumin Globulin Albumin/Globulin Ratio Triglycerides Cholesterol LDL Cholesterol VLDL Cholesterol HDL Cholesterol Heart Disease Risk Ratio 04/05/17 04/05/17 04/05/17 14:03 13:54 13:03 WBC RBC Hgb Hct MCV MCH MCHC RDW Plt Count MPV Neut % (Auto) Lymph % (Auto) [place] % (Auto) Eos % (Auto) Baso % (Auto) Neut # (Auto) Lymph # (Auto) [place] # (Auto) Eos # (Auto) Baso # (Auto) Immature Gran % Nucleated RBC % Immature Gran # Nucleated RBCs # Immature Plt Fraction Sodium 145 Potassium 3.8 Chloride 112 H Carbon Dioxide 24 Anion Gap 12.8 BUN 26 H Creatinine 2.20 H GFR Calculation 28 BUN/Creatinine Ratio 11.00 Glucose 154 H POC Glucose 32 L* 56 L Calculated Osmolality 295.7 Calcium 7.9 L Total Bilirubin < 0.39 AST 107 H ALT 70 H Alkaline Phosphatase 90 Total Protein 5.4 L Albumin 2.5 L Globulin 2.9 Albumin/Globulin Ratio 0.8 L Triglycerides Cholesterol LDL Cholesterol VLDL Cholesterol HDL Cholesterol Heart Disease Risk Ratio DS: Provider Date of admission: 04/05/17 16:26 Primary care physician: Thai Gonsalves MD Attending physician on admission: Liliana Drummond NP Consults: 04/05/17 17:46 Consult to Pastoral Services [CONS] Routine Comment: Pastoral Screen: Request Dietetic Intern Visit 04/05/17 17:47 Consult to Case Mgmt/Social Srvs [CONS] Routine Reason for Case Mgmt/Social Srvs: Discharge Planning Consult to Diabetes Center, Educator [CONS] Routine 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
[2017-04-06 12:02] VITALS: BP 118/68
[2017-04-06] MEDS: INSULIN REGULAR 100 UNIT/ML SUBCUT SCH ×2 (15:12→15:14)
== END 2017-04-06 14:10 | disposition home or self-care (01) ==
LOC: EDUNIT# → N.ED 12:55 → N.EDINP 12:55 → N.2E 17:39
PROVIDERS: ADMIT Nurse Practitioner Family; ATTEND Nurse Practitioner Family

== ENCOUNTER 2017-05-12 16:09 | Inpatient (IN) ==
[2017-05-12] MEDS ORDERED: SODIUM CHLORIDE 0.9% 1,000 ML IV STA (16:38)
[2017-05-12] MEDS ORDERED: ONDANSETRON 4 MG/2 ML VIAL IV STA (16:38)
--- NOTE | 2017-05-12 16:42 | Emergency Department Note ---
Herb Golden Manpreet, am scribing for, and in the presence of, Odette Mahmood DO 16: 39. ITimoteo Debra, DO, personally performed the services described in this documentation, ascribed by Everardo Estevez in my presence, and it is both accurate and complete 642 . 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 pt states comes and comes. denies any abd pain Mode of Arrival: Ambulatory Limitations: No Limitations Source: Patient, Family, Old Records Reviewed, RN Notes Reviewed - History of Present Illness HPI Narrative: 56 y/o female presents to the ED with CC of N/V/D and weakness onset for a month intermittently. Pt was in the hospital for the same CC and anemia in March 2017 but was then discharged home. Pt reports of having a right renal transplant 9 years ago and has had no complications of rejection. Pt is on medication for the medications. Pt denies any pain but states she is unable to keep anything down S/P eating. Pt's PCP is Dr. Gonsalves. Pt's initial B/P was 104/ 54 when being triaged. Pt denies any fever, chills, Abd pain, dysuria, or ZAMORANO. No other pains/complaints reported to the ED. Onset (ago): month(s) (1 month) Consistency: constant, intermittent Severity: moderate Severity scale (1-10): 3 Allergies/Adverse Reactions: Allergies Allergy/AdvReac Type Severity Reaction Status Date / Time Iodinated Contrast Media - Allergy Unknown/Unable Verified 05/12/17 16:17 Oral and to obtain nifedipine [From Procardia] Allergy Unknown/Unable Verified 05/12/17 16:17 to obtain sulfamethoxazole Allergy Unknown/Unable Verified 05/12/17 16:16 [From Bactrim] to obtain trimethoprim [From Bactrim] Allergy Unknown/Unable Verified 05/12/17 16:16 to obtain MYCINS DRUGS AdvReac RASH Uncoded 05/12/17 16:16 Home Medications: Home Medications Medication Instructions Recorded Confirmed Type Atorvastatin [Lipitor] 10 mg PO BEDTIME 03/30/17 05/12/17 History Mycophenolate Sodium [Mycophenolic 720 mg PO BID 03/30/17 05/12/17 History Acid] predniSONE TAB [PredniSONE] 5 mg PO QAM 03/30/17 05/12/17 History Cholecalciferol (Vitamin D3) 1,000 unit PO QAM 04/05/17 05/12/17 History [Vitamin D3] Potassium Chloride [Klor-Con 8] 8 meq PO BID 04/05/17 05/12/17 History Tacrolimus [Tacrolimus Cap] 5 mg PO BID 04/05/17 05/12/17 History Insulin Aspart [NovoLOG] See Protocol SUBCUT ACHS #1 04/06/17 05/12/17 Rx cartridge Zinc Oxide Paste [Desitin Paste] 1 applic TOP PRN PRN applic 04/06/17 05/12/17 Rx Amlodipine Besylate [Amlodipine 10 mg PO QAM 05/12/17 05/12/17 History Besylate] Esomeprazole Magnesium 40 mg PO QAM 05/12/17 05/12/17 History [Esomeprazole] Insulin Detemir [Levemir FlexPen] 46 unit SUBCUT BIDAC 05/12/17 05/12/17 History Levothyroxine Sodium 75 mcg PO QAM 05/12/17 05/12/17 History Review of System - Review of System 12 point system: reviewed and no additional remarkable complaints except as stated - Review of System Constitutional: Present: weakness. Absent: chills, diaphoresis, fever Respiratory: Absent: cough, respiratory distress, wheezing Cardiovascular: Absent: chest pain Gastrointestinal: Present: nausea, vomiting, diarrhea. Absent: abdominal pain Genitourinary female: Absent: dysuria Musculoskeletal: Absent: arm pain, back pain, leg pain, neck pain Neurological: Absent: headache, weakness, numbness, paresthesias Medical,Surgical,& Family Hx - Medical History Cardio: History of: Hypertension Neurology: No history of: Seizures Endocrine: History of: Diabetes Mellitus (IDDM), Dyslipidemia, Thyroid Disorder (Hypothyroidism) Rheumatology: History of;: Rheumatological Problems (Mixed connective tissue disease) Renal: History of: Renal Failure (Status post renal transplant in 2007) Genitourinary: History of: Problems Gastrointestinal: History of: GERD - Surgical History Abdominal Surgeries: Surgical HX of: Abdominal Surgery (Renal transplant at [facility] in 2007), Cholecystectomy Reproductive Surgeries: Surgical HX of;: Section (Twice) - Family History Family History: Denies;: Family Diabetes - Social History Smoking Status: Never smoker Frequency of Alcohol Use: None Type of Drug Use: None Exam Vital Signs: Vital Signs Temperature 97.5 F L 05/12/17 17:22 Pulse Rate 100 H 05/12/17 17:22 Respiratory Rate 18 05/12/17 17:22 Blood Pressure 104/54 05/12/17 17:22 O2 Sat by Pulse Oximetry 99 05/12/17 16:14 - General General appearance: alert - Head Head exam: Present: atraumatic, normocephalic, normal inspection - Eye Eye exam: Present: normal appearance, PERRL, EOMI - ENT ENT exam: Present: normal exam, normal oropharynx, mucous membranes dry, TM's normal bilaterally - Neck Neck exam: Present: normal inspection, full ROM, trachea midline. Absent: tenderness - Chest Chest inspection: Present: normal inspection, symmetric chest wall rise. Absent : tenderness - Respiratory Respiratory exam: Present: normal lung sounds bilaterally. Absent: accessory muscle use, respiratory distress - Cardiovascular Cardiovascular exam: Present: normal rhythm, tachycardia, normal heart sounds. Absent: murmur, rubs, gallop - Abdominal Exam Abdominal exam: Present: soft, normal bowel sounds, other (Scar consistent with previous renal transplant on right Abd). Absent: distention, tenderness, guarding - Extremities Exam Extremities exam: Present: normal inspection, full ROM. Absent: tenderness - Back Exam Back exam: Present: normal inspection, full ROM. Absent: tenderness - Neurological Exam Neurological exam: Present: alert, oriented X3, CN II-XII intact, reflexes normal - Psychiatric Psychiatric exam: Present: normal affect, normal mood - Skin Skin exam: Present: warm, dry, intact, normal color. Absent: pallor Course Course Narrative: spoke with Dr Pineda who accepts pt for Dr Gonsalves Procedures - Laceration Laceration 1 Site: scalp Side (If applicable): right Description: linear Depth: simple, single layer Local Anesthetic: lidocaine 1%, with epi Pre-repair: irrigated extensively, deep structures intact, wound cleansed Skin layer closed with: other (Staple) Laceration 2 Site: scalp Side (If applicable): right Description: linear Depth: simple, single layer Local Anesthetic: lidocaine 1%, with epi Pre-repair: irrigated extensively, wound cleansed Skin layer closed with: other (4 [place]) Number of sutures: 4 Results - Labs CBC & BMP: 05/12/17 17:12 05/12/17 17:12 Lab Results: I have reviewed the patients labs Labs: Laboratory Tests 05/12/17 17:12 Sodium 144 Potassium 5.9 H Chloride 116 H Carbon Dioxide 14 L Anion Gap 19.9 H BUN 40 H Creatinine 2.50 H GFR Calculation 24 BUN/Creatinine Ratio 16.00 Glucose 144 H Calculated Osmolality 298.8 Calcium 8.8 Total Bilirubin 0.60 AST 16 ALT 19 Alkaline Phosphatase 92 Total Protein 6.4 Albumin 3.2 L Globulin 3.2 Albumin/Globulin Ratio 1.0 L Lipase 241.0 Disposition Clinical Impression: Gastroenteritis Case discussed with: patient, patient's family Disposition: Still a Patient Condition: Stable Time of Disposition: 18:36
[2017-05-12] MEDS ORDERED: ONDANSETRON 4 MG/2 ML VIAL ONE (17:04)
[2017-05-12 17:25] LABS: Eosinophils % 0.1 % (0.00-10.9); Hematocrit 33.2 VOL% (35.7-47.0); Hemoglobin 10.1 GM/DL (12.0-16.0); Immature Granulocytes % 0.5 %; Immature Granulocytes Absolute 0.04 #; Lymphocytes # 0.5 10*3/uL (1.4-4.0); Lymphocytes % 6.4 % (21.3-54.2); Mean Corpuscular HGB Conc 30.4 GM/DL (32-36); Mean Corpuscular Hemoglobin 28 PG (27-34); Mean Platelet Volume 10.2 FL (9.6-12.0); Monocytes # 0.2 10*3/uL (0.11-0.8); Monocytes % 2.1 % (1.7-12.7); Neutrophils # 7.7 10*3/uL (1.4-7.4); Neutrophils % 90.9 % (38.7-73.9); Platelet Count 157 T/CUMM (130-400); Red Blood Count 3.65 MC/CUMM (3.8-5.5); Red Cell Distribution Width 16.7 % (9.3-17.3); White Blood Count 8.4 T/CUMM (4-12)
[2017-05-12 17:43] LABS: Albumin 3.2 G/DL (3.4-5.0); Bilirubin,Total 0.6 MG/DL (0.2-1.0); Calcium 8.8 MG/DL (8.5-10.1); Total Protein 6.4 G/DL (6.4-8.3)
[2017-05-12 17:44] LABS: Osmolality,Calculated 298.8 MOS/KG (273-304); Potassium 5.9 MMOL/L (3.5-5.1)
[2017-05-12 17:48] LABS: Lymphocytes 5 % (20-55); Polychromasia Slight; Segmented Neutrophils 95 % (50-85); Total Cells Counted 100
[2017-05-12 17:49] LABS: Platelet Estimate Adequate
[2017-05-12] MEDS ORDERED: ACETAMINOPHEN 325 MG TABLET PO PRN (18:42)
[2017-05-12] MEDS ORDERED: ONDANSETRON 4 MG/2 ML VIAL IV PRN (18:42)
--- NOTE | 2017-05-12 18:55 | CT Report ---
Exam: CT abdomen and pelvis without intravenous contrast Clinical History: 56 years,Female, chronic diarrhea with nausea vomiting and abdominal cramping. abdominal pain, generalized Technique: Axial computed tomography images of the abdomen and pelvis without intravenous contrast. All CT scans at this facility use one or more dose reduction techniques. Automated exposure control, MA/KV adjustment per patient size (including targeted exam Square dose is matched to indication) or iterative reconstruction technique Comparison: No relevant comparisons Findings: Lower thorax: No acute pathology within the lung bases. Abdomen: Liver: Single 2 cm hepatic cyst arising from the right hepatic lobe Gallbladder and bile ducts: Prior cholecystectomy. No ductal dilatation. Pancreas: Pancreas is normal. Spleen: Spleen is normal. Adrenals: No adrenal mass. Kidneys and ureters: Marked atrophy of the [place] kidneys with prominent cystic changes, hydronephrosis and hydroureter. Normal appearance of the right pelvic kidney Stomach and bowel: No evidence of acute gastritis, colitis or enteritis. No bowel obstruction. Appendix: No primary or secondary signs to suggest appendicitis. Pelvis: Bladder: Unremarkable Reproductive: Unremarkable as visualized. Abdomen and pelvis: Intraperitoneal space: No pneumoperitoneum. No free intraperitoneal fluid Bones/joints: No acute osseous abnormality. Soft tissues: No mass. Note is made of subcutaneous stranding along the left anterior lower abdominal wall, correlate clinically for possible cellulitis Vasculature: No aortic aneurysm. Atheromatous calcifications noted along the aorta and branch vessels. Lymph nodes: No adenopathy Impression: 1. No acute findings to explain patient's symptoms. 2. Cannot exclude superficial cellulitis along the left anterior abdominal wall. Correlate clinically PROCEDURE INTERPRETED AT [facility] DEPARTMENT OF RADIOLOGY Final Report Signed by: Nimo Green MD
[2017-05-12] MEDS: SODIUM CHLORIDE 0.9% 1,000 ML IV SCH (20:37)
[2017-05-12] MEDS: DOCUSATE SODIUM 100 MG CAPSULE PO SCH (21:48)
[2017-05-13] MEDS: SODIUM CHLORIDE 0.9% 1,000 ML IV SCH ×2 (04:55→12:40)
[2017-05-13 06:31] LABS: Basophils % 0.1 % (0.0-0.8); Eosinophils # 0.1 10*3/uL (0.0-0.87); Eosinophils % 0.6 % (0.00-10.9); Hematocrit 29.4 VOL% (35.7-47.0); Hemoglobin 8.8 GM/DL (12.0-16.0); Immature Granulocytes % 0.5 %; Immature Granulocytes Absolute 0.04 #; Lymphocytes # 1.7 10*3/uL (1.4-4.0); Lymphocytes % 20.5 % (21.3-54.2); Mean Corpuscular HGB Conc 29.9 GM/DL (32-36); Mean Corpuscular Hemoglobin 27 PG (27-34); Mean Corpuscular Volume 91.6 FL (87-102); Mean Platelet Volume 10.8 FL (9.6-12.0); Monocytes # 0.5 10*3/uL (0.11-0.8); Monocytes % 5.7 % (1.7-12.7); Neutrophils # 5.9 10*3/uL (1.4-7.4); Neutrophils % 72.6 % (38.7-73.9); Platelet Count 151 T/CUMM (130-400); Red Blood Count 3.21 MC/CUMM (3.8-5.5); Red Cell Distribution Width 16.9 % (9.3-17.3); White Blood Count 8.2 T/CUMM (4-12)
[2017-05-13 06:59] LABS: Albumin 2.8 G/DL (3.4-5.0); Bilirubin,Total 0.7 MG/DL (0.2-1.0); Calcium 8.2 MG/DL (8.5-10.1); Osmolality,Calculated 293.7 MOS/KG (273-304); Potassium 5.3 MMOL/L (3.5-5.1); Total Protein 5.6 G/DL (6.4-8.3)
[2017-05-13] MEDS: DOCUSATE SODIUM 100 MG CAPSULE PO SCH (08:49)
[2017-05-13] MEDS: PANTOPRAZOLE 40 MG TABLET PO SCH (08:49)
[2017-05-13 13:16] LABS: Apearance,Urine CLEAR (Clear); Bacteria,Urine Occasional /HPF (Few); Bilirubin,Urine Negative (Negative); Blood, Urine Small mg/dL (Negative); Glucose,Urine (UA) Negative (Negative); Hyaline Casts,Urine 1 /LPF (0-3); Ketones,Urine 5 mg/dL (Negative); Mucus,Urine Occasional /LPF (Occasional); Nitrite,Urine Negative (Negative); Protein,Urine Negative; RBC,Urine 5 /HPF (0-4); Squamous Epithelial Cell,Urine Occasional /HPF (0-10); Urine Color Yellow (Yellow); Urine Specific Gravity 1.011 (1.001-1.035); Urine Urobilinogen < 2.0 EU/DL (0.2-1.0); WBC,Urine 5 /HPF (0-6)
[2017-05-13] MEDS ORDERED: ZINC OXIDE PASTE 113 GM TUBE TOP PRN (14:27)
[2017-05-13] MEDS: predniSONE 5 MG TABLET PO SCH (15:02)
[2017-05-13] MEDS: TACROLIMUS 0.5 MG CAPSULE PO SCH ×2 (15:03→21:44)
[2017-05-13] MEDS: MYCOPHENOLATE 180 MG TABLET PO SCH ×2 (15:03→22:18)
[2017-05-13] MEDS: INSULIN GLARGINE 100 UNIT/ML SUBCUT SCH (16:02)
--- NOTE | 2017-05-13 16:29 | Family Practice History&Phys ---
Assessment and Plan (1) Volume depletion Status: Acute Assessment and plan: Patient apparently has had several day history of almost continuous nausea and vomiting. Unable to tolerate solids liquids or medication at time of admission. Have started on IV fluids and will evaluate further Current Visit: Yes (2) Nausea & vomiting Status: Acute Assessment and plan: Several day history of nausea vomiting unknown etiology. Started on IV fluids and will evaluate further Current Visit: No (3) Type 2 diabetes mellitus Status: Chronic Assessment and plan: Stable on present medications. Will start on sliding scale insulin Current Visit: Yes (4) Connective tissue disease Status: Chronic Assessment and plan: Stable at present Current Visit: No (5) Hypothyroidism Status: Chronic Assessment and plan: Stable on present medications Current Visit: No (6) Status post kidney transplant Status: Chronic Assessment and plan: Stable with present medications Current Visit: No History of Present Illness Chief complaint: Nausea vomiting and weakness History of present illness: Ms. Delgado is a 56 year old female Patient is a 56-year-old black female admitted to the emergency room with several day history of nausea vomiting and weakness. She apparently has had some diarrhea stools. Family states that she has had minimal solid or liquid intake. Apparently was admitted in March for similar symptoms appear patient states that she never had complete clearing from previous admission. Unable to tolerate solids liquids or medications at time of admission. Seen in the emergency room and in view of history admitted further evaluation therapy Home Medications Medication Instructions Recorded Confirmed Type Atorvastatin [Lipitor] 10 mg PO BEDTIME 03/30/17 05/12/17 History Mycophenolate Sodium [Mycophenolic 720 mg PO BID 03/30/17 05/12/17 History Acid] predniSONE TAB [PredniSONE] 5 mg PO QAM 03/30/17 05/12/17 History Cholecalciferol (Vitamin D3) 1,000 unit PO QAM 04/05/17 05/12/17 History [Vitamin D3] Potassium Chloride [Klor-Con 8] 8 meq PO BID 04/05/17 05/12/17 History Tacrolimus [Tacrolimus Cap] 5 mg PO BID 04/05/17 05/12/17 History Insulin Aspart [NovoLOG] See Protocol SUBCUT ACHS #1 04/06/17 05/12/17 Rx cartridge Zinc Oxide Paste [Desitin Paste] 1 applic TOP PRN PRN applic 04/06/17 05/12/17 Rx Amlodipine Besylate [Amlodipine 10 mg PO QAM 05/12/17 05/12/17 History Besylate] Esomeprazole Magnesium 40 mg PO QAM 05/12/17 05/12/17 History [Esomeprazole] Insulin Detemir [Levemir FlexPen] 46 unit SUBCUT BIDAC 05/12/17 05/12/17 History Levothyroxine Sodium 75 mcg PO QAM 05/12/17 05/12/17 History Allergies Allergy/AdvReac Type Severity Reaction Status Date / Time Iodinated Contrast Media - Allergy Unknown/Unable Verified 05/12/17 16:17 Oral and to obtain nifedipine [From Procardia] Allergy Unknown/Unable Verified 05/12/17 16:17 to obtain sulfamethoxazole Allergy Unknown/Unable Verified 05/12/17 16:16 [From Bactrim] to obtain trimethoprim [From Bactrim] Allergy Unknown/Unable Verified 05/12/17 16:16 to obtain MYCINS DRUGS AdvReac RASH Uncoded 05/12/17 16:16 Medical,Surgical,& Family Hx - Medical History Cardio: History of: Hypertension Neurology: No history of: Seizures Endocrine: History of: Diabetes Mellitus (IDDM), Dyslipidemia, Thyroid Disorder (Hypothyroidism) Rheumatology: History of;: Rheumatological Problems (Mixed connective tissue disease) Renal: History of: Renal Failure (Status post renal transplant in 2007) Genitourinary: History of: Problems Gastrointestinal: History of: GERD - Surgical History Abdominal Surgeries: Surgical HX of: Abdominal Surgery (Renal transplant at [facility] in 2007), Cholecystectomy Reproductive Surgeries: Surgical HX of;: Section (Twice) - Family History Family History: Denies;: Family Diabetes - Social History Smoking Status: Never smoker Frequency of Alcohol Use: None Type of Drug Use: None Lives With:: Children Functional capacity: independent ambulation Exam - Constitutional Vitals: Period Temp Pulse Resp BP Sys/Block Pulse Ox Last 24 Hr 97.5 F-98.1 F 73-100 16-20 104-132/53-82 96-100 General appearance: mild distress - Head Head exam: Present: normal inspection - Eye Pupils: Present: PAMELA - ENT ENT exam: Present: normal exam - Neck Neck exam: Present: normal inspection - Respiratory Respiratory exam: Present: clear to auscultation bilaterally - Cardiovascular Cardiovascular exam: Present: irregular rhythm - GI/Abdominal GI/Abdominal exam: Present: hyperactive bowel sounds, tenderness (Slight diffuse tenderness on palpation) - Extremities Exam Extremities exam: Present: normal inspection - Back Exam Back exam: Present: normal inspection - Neurological Exam Neurological exam: Present: alert, oriented X3 - Psychiatric Psychiatric exam: Present: normal affect - Skin Skin exam: Present: dry Results - Labs CBC & BMP: 05/13/17 05:25 05/13/17 05:25
[2017-05-13] MEDS ORDERED: POTASSIUM CHLORIDE 8 MEQ CAPSULE PO SCH (21:00)
[2017-05-13] MEDS: SODIUM CHLORIDE 0.45% 1,000 ML IV SCH (21:46)
[2017-05-13] MEDS: ATORVASTATIN 10 MG TABLET PO SCH (21:46)
[2017-05-13] MEDS: INSULIN LISPRO 100 UNIT/ML SUBCUT SCH (21:53)
[2017-05-14 05:52] LABS: Eosinophils % 0.4 % (0.00-10.9); Hematocrit 26.7 VOL% (35.7-47.0); Hemoglobin 8.2 GM/DL (12.0-16.0); Immature Granulocytes % 0.7 %; Immature Granulocytes Absolute 0.05 #; Lymphocytes # 1.1 10*3/uL (1.4-4.0); Lymphocytes % 15.2 % (21.3-54.2); Mean Corpuscular HGB Conc 30.7 GM/DL (32-36); Mean Corpuscular Hemoglobin 28 PG (27-34); Mean Corpuscular Volume 90.5 FL (87-102); Monocytes # 0.4 10*3/uL (0.11-0.8); Monocytes % 5.2 % (1.7-12.7); Neutrophils # 5.6 10*3/uL (1.4-7.4); Neutrophils % 78.5 % (38.7-73.9); Platelet Count 143 T/CUMM (130-400); Red Blood Count 2.95 MC/CUMM (3.8-5.5); White Blood Count 7.1 T/CUMM (4-12)
[2017-05-14] MEDS: SODIUM CHLORIDE 0.45% 1,000 ML IV SCH ×3 (06:13→22:22)
[2017-05-14 06:38] LABS: Calcium 8.1 MG/DL (8.5-10.1); Magnesium 1.4 MG/DL (1.8-2.4); Potassium 4.9 MMOL/L (3.5-5.1); Risk Ratio 1.62; VLDL CHOLESTEROL 26.2 MG/DL
[2017-05-14 06:42] LABS: Free T4 (Free Thyroxine) 0.94 NG/DL (0.76-1.46); Thyroid Stimulating Hormone 2.75 uIU/ml (0.358-3.74)
--- NOTE | 2017-05-14 08:55 | XRay Report ---
XR chest 2V Date: 05/14/2017 4:00 AM History: Shortness of breath Comparison: 05/17/2013 Technique: PA and lateral chest Findings: The heart is normal in size with calcification in the aortic knob. The lungs are minimally over expanded. Osteopenia with degenerative changes. Stable mediastinum. Impression: The lungs appear more over expanded. Osteopenia. PROCEDURE INTERPRETED AT [facility] DEPARTMENT OF RADIOLOGY Final Report Signed by: Dr. Izzy Mancera
--- NOTE | 2017-05-14 08:57 | Gastrointestinal Consult Note ---
<Desirae Galeano - Last Filed: 05/14/17 08:51> Assessment and Plan (1) Nausea & vomiting Status: Acute Assessment and plan: 05/14-History of nausea and vomiting with associated weakness with history of GERD on last EGD. Intractable vomiting at times over last several days. History of cyclic diarrhea as well. Check stool studies as well as for occult blood. Plan and addendum to follow by Dr Dillon. Current Visit: No History of Present Illness Chief complaint: Nausea, vomiting History of present illness: Ms. Delgado is a 56 year old female who was admitted to the hospital 2 days ago with worsening episodes of nausea, vomiting and diarrhea with associated weakness. Patient has a prior history of renal transplant approximately 9 years ago and has had no complications following this. She is on Prograf and prednisone daily and tolerates this well. Patient states that she was discharged from our facility a little over a month ago after inpatient stay for hypoglycemia as well as reports of nausea and vomiting at that time. Her diabetic medications were adjusted and patient states that her blood sugar has been doing fairly well since this time. During that hospital stay patient underwent an EGD with findings of GERD with no other source for her recurrent nausea vomiting. She also underwent a gastric emptying scan with borderline findings of gastroparesis. Patient states since discharge, she has had continued episodes of nausea and vomiting but states they had initially improved following discharge. Over the last several days to couple weeks patient has had an increase in nausea vomiting and inability to keep very much down. She also states that she has had some episodes of diarrhea without abdominal pain or cramping. States she has had this off and on for several months and will have some days of "normal" bowel movements inbetween episodes. No nocturnal defecation or incontinence. She denies any melena or hematochezia associated with this. She denies any coffee-ground emesis or hematemesis with her vomiting episodes. She does states she has GERD and she takes Nexium which does not control her symptoms very well. She denies any dysphagia or dyspepsia. She does state at times she has some discomfort in her upper abdomen but this is not precipitated by any known factors. She reports a 20 pound weight loss over the last several months. Her blood sugars are better controlled since the weight loss according to patient. She denies any NSAID use. On admission, patient had CT of abdomen without contrast with no acute findings noted. Her admitting H&H was at 1033 and today is noted to be down at 8/26 and absence of overt bleeding. It is noted that her hemoglobin on discharge last month was noted to be at 8 with an initial admitting hemoglobin of 11. She has no prior history of blood transfusions in the past except following 30 years ago. Home Medications Medication Instructions Recorded Confirmed Type Atorvastatin [Lipitor] 10 mg PO BEDTIME 03/30/17 05/12/17 History Mycophenolate Sodium [Mycophenolic 720 mg PO BID 03/30/17 05/12/17 History Acid] predniSONE TAB [PredniSONE] 5 mg PO QAM 03/30/17 05/12/17 History Cholecalciferol (Vitamin D3) 1,000 unit PO QAM 04/05/17 05/12/17 History [Vitamin D3] Potassium Chloride [Klor-Con 8] 8 meq PO BID 04/05/17 05/12/17 History Tacrolimus [Tacrolimus Cap] 5 mg PO BID 04/05/17 05/12/17 History Insulin Aspart [NovoLOG] See Protocol SUBCUT ACHS #1 04/06/17 05/12/17 Rx cartridge Zinc Oxide Paste [Desitin Paste] 1 applic TOP PRN PRN applic 04/06/17 05/12/17 Rx Amlodipine Besylate [Amlodipine 10 mg PO QAM 05/12/17 05/12/17 History Besylate] Esomeprazole Magnesium 40 mg PO QAM 05/12/17 05/12/17 History [Esomeprazole] Insulin Detemir [Levemir FlexPen] 46 unit SUBCUT BIDAC 05/12/17 05/12/17 History Levothyroxine Sodium 75 mcg PO QAM 05/12/17 05/12/17 History Allergies Allergy/AdvReac Type Severity Reaction Status Date / Time Iodinated Contrast Media - Allergy Unknown/Unable Verified 05/12/17 16:17 Oral and to obtain nifedipine [From Procardia] Allergy Unknown/Unable Verified 05/12/17 16:17 to obtain sulfamethoxazole Allergy Unknown/Unable Verified 05/12/17 16:16 [From Bactrim] to obtain trimethoprim [From Bactrim] Allergy Unknown/Unable Verified 05/12/17 16:16 to obtain MYCINS DRUGS AdvReac RASH Uncoded 05/12/17 16:16 Medical,Surgical,& Family Hx - Medical History Cardio: History of: Hypertension Neurology: No history of: Seizures Endocrine: History of: Diabetes Mellitus (IDDM), Dyslipidemia, Thyroid Disorder (Hypothyroidism) Rheumatology: History of;: Rheumatological Problems (Mixed connective tissue disease) Renal: History of: Renal Failure (Status post renal transplant in 2007) Genitourinary: History of: Problems Gastrointestinal: History of: GERD - Surgical History Abdominal Surgeries: Surgical HX of: Abdominal Surgery (Renal transplant at [facility] in 2007), Cholecystectomy Reproductive Surgeries: Surgical HX of;: Section (Twice) - Family History Family History: Denies;: Family Diabetes - Social History Smoking Status: Never smoker Frequency of Alcohol Use: None Type of Drug Use: None 12 point system: reviewed and no additional remarkable complaints except as stated - Constitutional Constitutional: Present: as per HPI, weakness - EENT Eyes: Present: as per HPI Ears: Present: as per HPI Nose, mouth and throat: Present: as per HPI - Cardiovascular Cardiovascular: Present: as per HPI - Respiratory Respiratory: Present: as per HPI - Gastrointestinal Gastrointestinal: Present: as per HPI, diarrhea, nausea, vomiting - Genitourinary Genitourinary: Present: as per HPI - Musculoskeletal Musculoskeletal: Present: as per HPI - Neurological Neurological: Present: as per HPI - Psychiatric Psychiatric: Present: as per HPI - Endocrine Endocrine: Present: as per HPI - Hematologic/Lymphatic Hematologic/Lymphatic: Present: as per HPI Exam - Constitutional Vitals: Period Temp Pulse Resp BP Sys/Block Pulse Ox Last 24 Hr 97.6 F-98.6 F 72-87 16-18 102-132/60-82 97-100 General appearance: normal weight, no acute distress - Head Head exam: Present: normal inspection, normocephalic - Eye Eye exam: Present: other (lids and conjunctiva unremarkable). Absent: scleral icterus - ENT ENT exam: Present: normal exam, normal oropharynx - Neck Neck exam: Present: normal inspection - Respiratory Respiratory exam: Present: clear to auscultation bilaterally. Absent: rales, rhonchi, wheezes - Cardiovascular Cardiovascular exam: Present: regular rate and rhythm. Absent: diastolic murmur , JVD, systolic murmur - GI/Abdominal GI/Abdominal exam: Present: normal bowel sounds, soft. Absent: ascites, distended, mass, organomegaly, tenderness - Extremities Exam Extremities exam: Present: normal inspection, full ROM - Back Exam Back exam: Present: normal inspection - Neurological Exam Neurological exam: Present: alert, oriented X3 - Psychiatric Psychiatric exam: Present: normal affect, normal mood - Skin Skin exam: Present: normal color, warm, dry Results - Labs CBC & BMP: 05/14/17 05:27 05/14/17 05:27 Lab Results: I have reviewed the past 24 hour labs - Diagnostic Findings Procedure: CT Abdomen and Pelvis: report reviewed by me <Davis Dillon - Last Filed: 05/14/17 21:01> History of Present Illness History of present illness: Ms. Delgado is a 56 year old female Exam - Constitutional Vitals: Period Temp Pulse Resp BP Sys/Block Pulse Ox Last 24 Hr 97.6 F-98.2 F 85-93 16-18 105-134/58-67 97-100 Results - Labs CBC & BMP: 05/14/17 05:27 05/14/17 05:27
[2017-05-14] MEDS ORDERED: NON-FORMULARY MEDICATION (Esomeprazole Magnesium [Esomeprazole] 40 MG) PO SCH (09:00)
--- NOTE | 2017-05-14 09:16 | Internal Med Progress Note ---
Assessment and Plan (1) Nausea & vomiting Status: Acute Assessment and plan: 56-year-old female admitted to acute care * Intractable nausea, vomiting and diarrhea. Patient's symptoms have been going on for at least 2 months. She was hospitalized twice in March and had workup including GI workup and gastric emptying scan. No specific etiology was found. She continues to have similar symptoms. Will consult GI to evaluate. It could be related to her medications for her renal transplant. She may require higher dose of prednisone for adrenal insufficiency especially when she is dehydrated * Acute renal insufficiency and chronic renal failure. Patient status post transplant. Her renal insufficiency is probably related to dehydration. Will consult Dr. Pedroza. Will check a Prograf level * Diabetes. Continue current treatment * Hypertension. Blood pressure is stable Current Visit: No (2) Type 2 diabetes mellitus Status: Chronic Current Visit: Yes (3) Connective tissue disease Status: Chronic Current Visit: No (4) GERD (gastroesophageal reflux disease) Status: Chronic Current Visit: No (5) Hypertension Status: Chronic Current Visit: No (6) Hypothyroidism Status: Chronic Current Visit: No (7) Insulin dependent diabetes mellitus Status: Chronic Current Visit: No (8) Status post kidney transplant Status: Chronic Current Visit: No Internal Medicine - PN: Subj Interval history: Patient seen and examined. Her chart was reviewed. She is nauseated this morning. She has not had any vomiting today. She has had some diarrhea. She denies any fever or chills. Exam (Progress Note) - Constitutional Vitals: Period Temp Pulse Resp BP Sys/Block Pulse Ox Last 24 Hr 97.6 F-98.6 F 72-87 16-18 102-132/60-82 97-100 Exam: Examination: GENERAL: Ill-appearing female who is in no acute distress HEENT: PERRLA. EOMI. Mucous membranes are moist. NECK: Neck is supple. CVS: Regular rate and rhythm. S1 and S2 are normal. RESPIRATORY: Lungs are clear. No rales or rhonchi. ABDOMEN: Soft and nontender. Bowel sounds are present. No hepatosplenomegaly. EXT: No edema. Peripheral pulses are present. SERVICING MANAGER: Patient is awake, alert and oriented to time place and person. Motor strength is 4/5 SKIN: Warm and dry. MSK: No obvious deformity. Results - Labs CBC & BMP: 05/14/17 05:27 05/14/17 05:27 Lab Results: I have reviewed the past 24 hour labs
[2017-05-14] MEDS: INSULIN LISPRO 100 UNIT/ML SUBCUT SCH ×4 (09:26→22:22)
[2017-05-14] MEDS: INSULIN GLARGINE 100 UNIT/ML SUBCUT SCH ×2 (09:26→15:44)
[2017-05-14] MEDS: ONDANSETRON 4 MG/2 ML VIAL IV PRN ×3 (09:37→22:22)
[2017-05-14] MEDS: HYDROCORTISONE 100 MG VIAL IV SCH ×2 (09:37→17:51)
[2017-05-14] MEDS: NYSTATIN 500,000 UNIT/5 ML UDCUP SWISH/SWAL SCH ×4 (09:37→22:23)
[2017-05-14] MEDS: predniSONE 5 MG TABLET PO SCH (09:38)
[2017-05-14] MEDS: LEVOTHYROXINE 75 MCG TABLET PO SCH (09:38)
[2017-05-14] MEDS: TACROLIMUS 0.5 MG CAPSULE PO SCH ×2 (09:38→22:23)
[2017-05-14] MEDS: CHOLECALCIFEROL 1,000 UNIT TABLET PO SCH (09:38)
[2017-05-14] MEDS: PANTOPRAZOLE 40 MG TABLET PO SCH (09:38)
[2017-05-14] MEDS: amLODIPine 10 MG TABLET PO SCH (09:39)
--- NOTE | 2017-05-14 10:10 | Physician Query Form ---
CLICK EDIT DOCUMENT TO SELECT QUERY ANSWER --> OK --> SIGN Sameera Tian RN, CCDS Certified Clinical Business Support Administrator W) [phone] (f) [phone] [email or web address] PROVIDERS: Make your selection(s) from the choices in EACH section by typing an "x" and enter comments in the comment section. Please use your independent medical judgment in providing your response. This request does not imply that any particular answer is desired or expected. CLINICAL INDICATORS: (Providers should not edit this section) The medical record indicates that the patient was admitted with nausea and vomiting, " Acute renal insufficiency", Creatinine of 2.50 that has decreased to 1.20, GFR of 24# that has increased to 57 on the 9th and the patient is on IV fluids. Clarify which of the following most accurately represents the patient's renal status: ( ) Acute kidney injury (non-traumatic) ( ) Acute renal failure ( ) Acute renal failure with underlying Chronic Kidney Disease (CKD) - please provide stage below ( ) Acute renal failure with pathological renal lesion ( ) Acute renal failure with necrosis ( ) tubular ( ) medullary ( ) cortical ( ) CKD - please provide stage below ( ) End Stage Renal Disease ( ) Acute interstitial nephritis ( ) Hepatorenal syndrome ( x) Other, please specify: Patient with history of renal transplant in the past. She was dehydrated because of vomiting and diarrhea ( ) Clinically unable to determine Chronic Kidney Disease Stages Source: National Kid[employer] Foundation ( ) Stage I (eGFR > or = 90) ( x) Stage II (eGFR 60 - 89) ( ) Stage III (eGFR 30 - 59) ( ) Stage IV (eGFR 15 - 29) ( ) Stage V (eGFR < 15 or dialysis) COMMENTS: PLEASE ALSO DOCUMENT RESPONSE IN PROGRESS NOTES AND/OR DISCHARGE SUMMARY Use of terms such as suspected, likely, or probable (associated with a specific diagnosis that is being evaluated, monitored, or treated as if it exists) are acceptable and can be restated in the discharge summary if not ruled out. MTDD
--- NOTE | 2017-05-14 11:25 | Nephrology Consult Note ---
History of Present Illness Chief complaint: Renal transplant History of present illness: Ms. Delgado is a 56 year old female renal transplant recipient approximately 9 years ago. She was admitted with nausea vomiting and diarrhea. She has had no hematemesis or melena. No abdominal pain. Nausea and vomiting are more frequent than diarrhea. She denies fever. She has had no dysuria or pain around her graft. Home Medications Medication Instructions Recorded Confirmed Type Atorvastatin [Lipitor] 10 mg PO BEDTIME 03/30/17 05/12/17 History Mycophenolate Sodium [Mycophenolic 720 mg PO BID 03/30/17 05/12/17 History Acid] predniSONE TAB [PredniSONE] 5 mg PO QAM 03/30/17 05/12/17 History Cholecalciferol (Vitamin D3) 1,000 unit PO QAM 04/05/17 05/12/17 History [Vitamin D3] Potassium Chloride [Klor-Con 8] 8 meq PO BID 04/05/17 05/12/17 History Tacrolimus [Tacrolimus Cap] 5 mg PO BID 04/05/17 05/12/17 History Insulin Aspart [NovoLOG] See Protocol SUBCUT ACHS #1 04/06/17 05/12/17 Rx cartridge Zinc Oxide Paste [Desitin Paste] 1 applic TOP PRN PRN applic 04/06/17 05/12/17 Rx Amlodipine Besylate [Amlodipine 10 mg PO QAM 05/12/17 05/12/17 History Besylate] Esomeprazole Magnesium 40 mg PO QAM 05/12/17 05/12/17 History [Esomeprazole] Insulin Detemir [Levemir FlexPen] 46 unit SUBCUT BIDAC 05/12/17 05/12/17 History Levothyroxine Sodium 75 mcg PO QAM 05/12/17 05/12/17 History Allergies Allergy/AdvReac Type Severity Reaction Status Date / Time Iodinated Contrast Media - Allergy Unknown/Unable Verified 05/12/17 16:17 Oral and to obtain nifedipine [From Procardia] Allergy Unknown/Unable Verified 05/12/17 16:17 to obtain sulfamethoxazole Allergy Unknown/Unable Verified 05/12/17 16:16 [From Bactrim] to obtain trimethoprim [From Bactrim] Allergy Unknown/Unable Verified 05/12/17 16:16 to obtain MYCINS DRUGS AdvReac RASH Uncoded 05/12/17 16:16 Medical,Surgical,& Family Hx - Medical History Cardio: History of: Hypertension Neurology: No history of: Seizures Endocrine: History of: Diabetes Mellitus (IDDM), Dyslipidemia, Thyroid Disorder (Hypothyroidism) Rheumatology: History of;: Rheumatological Problems (Mixed connective tissue disease) Renal: History of: Renal Failure (Status post renal transplant in 2007) Genitourinary: History of: Problems Gastrointestinal: History of: GERD - Surgical History Abdominal Surgeries: Surgical HX of: Abdominal Surgery (Renal transplant at [facility] in 2007), Cholecystectomy Reproductive Surgeries: Surgical HX of;: Section (Twice) - Family History Family History: Denies;: Family Diabetes - Social History Smoking Status: Never smoker Frequency of Alcohol Use: None Type of Drug Use: None Review of Systems 12 point system: reviewed and no additional remarkable complaints except as stated Exam - Vital Signs Vital signs: Period Temp Pulse Resp BP Sys/Block Pulse Ox Last 24 Hr 97.6 F-98.6 F 72-93 16-18 102-132/60-82 97-100 Exam: Gen.: Alert and oriented x3. ENT: Pupils equal round reactive to light. EOMs intact. Mucous membranes moist. Neck: Supple. No JVD or bruit. Cardiovascular: Regular rate and rhythm. No murmur rub or gallop Lungs: Clear Abdomen: Soft. Nontender. Positive bowel sounds. No organomegaly. No tenderness over transplant Extremities: No edema Results - Labs CBC & BMP: 05/14/17 05:27 05/14/17 05:27 Assessment and Plan (1) Status post kidney transplant Status: Chronic Assessment and plan: 56-year-old woman with: * Renal transplant * Acute renal insufficiency due to volume depletion. Renal function has improved significantly with IV fluid since admission * Nausea vomiting diarrhea. GI has been consulted. This is a recurrent problem. Prograf level pending. Mycophenolate can also cause nausea * Mixed inactive tissue disease * Diabetes mellitus * Hypertension Current Visit: No (2) Volume depletion Status: Acute Current Visit: Yes (3) Type 2 diabetes mellitus Status: Chronic Current Visit: Yes (4) Nausea & vomiting Status: Acute Current Visit: No (5) Connective tissue disease Status: Chronic Current Visit: No (6) Hypertension Status: Chronic Current Visit: No (7) Hypothyroidism Status: Chronic Current Visit: No (8) Acute renal failure Status: Resolved Current Visit: No
[2017-05-14] MEDS: MYCOPHENOLATE 180 MG TABLET PO SCH ×2 (13:48→22:23)
[2017-05-14] MEDS: ATORVASTATIN 10 MG TABLET PO SCH (22:24)
[2017-05-15] MEDS ORDERED: HYDROCORTISONE 100 MG VIAL IV SCH (03:00)
[2017-05-15] MEDS: HYDROCORTISONE 100 MG VIAL IV SCH (03:12)
[2017-05-15] MEDS: SODIUM CHLORIDE 0.45% 1,000 ML IV SCH ×6 (05:48→23:51)
[2017-05-15 06:27] LABS: Hematocrit 27.9 VOL% (35.7-47.0); Hemoglobin 8.6 GM/DL (12.0-16.0); Immature Granulocytes % 0.9 %; Immature Granulocytes Absolute 0.06 #; Lymphocytes # 0.5 10*3/uL (1.4-4.0); Lymphocytes % 7.3 % (21.3-54.2); Mean Corpuscular HGB Conc 30.8 GM/DL (32-36); Mean Corpuscular Hemoglobin 27 PG (27-34); Mean Corpuscular Volume 88.9 FL (87-102); Monocytes # 0.1 10*3/uL (0.11-0.8); Monocytes % 1.5 % (1.7-12.7); Neutrophils % 90.3 % (38.7-73.9); Platelet Count 151 T/CUMM (130-400); Red Blood Count 3.14 MC/CUMM (3.8-5.5); Red Cell Distribution Width 16.8 % (9.3-17.3); White Blood Count 6.6 T/CUMM (4-12)
[2017-05-15 06:52] LABS: Calcium 8.1 MG/DL (8.5-10.1); Osmolality,Calculated 274.8 MOS/KG (273-304); Potassium 4.7 MMOL/L (3.5-5.1)
[2017-05-15] MEDS: INSULIN LISPRO 100 UNIT/ML SUBCUT SCH ×4 (08:26→20:03)
[2017-05-15] MEDS: INSULIN GLARGINE 100 UNIT/ML SUBCUT SCH ×2 (08:26→16:43)
[2017-05-15] MEDS: PANTOPRAZOLE 40 MG TABLET PO SCH ×2 (08:27→13:26)
[2017-05-15] MEDS: LEVOTHYROXINE 75 MCG TABLET PO SCH (08:27)
[2017-05-15] MEDS: NYSTATIN 500,000 UNIT/5 ML UDCUP SWISH/SWAL SCH ×4 (08:27→20:58)
[2017-05-15] MEDS: MYCOPHENOLATE 180 MG TABLET PO SCH ×2 (08:27→13:25)
[2017-05-15] MEDS: TACROLIMUS 0.5 MG CAPSULE PO SCH ×3 (08:27→21:00)
[2017-05-15] MEDS: predniSONE 5 MG TABLET PO SCH ×2 (08:27→13:27)
[2017-05-15] MEDS: amLODIPine 10 MG TABLET PO SCH ×2 (08:27→13:26)
[2017-05-15] MEDS: CHOLECALCIFEROL 1,000 UNIT TABLET PO SCH ×2 (08:27→13:27)
--- NOTE | 2017-05-15 09:08 | Internal Med Progress Note ---
Assessment and Plan (1) Nausea & vomiting Status: Acute Assessment and plan: 56-year-old female admitted to acute care * Intractable nausea, vomiting and diarrhea. For EGD today * Acute renal insufficiency and chronic renal failure. Patient status post transplant. Continue current treatment * Diabetes. Continue current treatment * Hypertension. Blood pressure is stable * She was given Solu-Cortef yesterday and that probably helped some of her symptoms. I am concerned she might be chronically adrenal insufficient. May have to increase her prednisone dose. Current Visit: No (2) Type 2 diabetes mellitus Status: Chronic Current Visit: Yes (3) Connective tissue disease Status: Chronic Current Visit: No (4) GERD (gastroesophageal reflux disease) Status: Chronic Current Visit: No (5) Hypertension Status: Chronic Current Visit: No (6) Hypothyroidism Status: Chronic Current Visit: No (7) Insulin dependent diabetes mellitus Status: Deleted Current Visit: No (8) Status post kidney transplant Status: Chronic Current Visit: No Internal Medicine - PN: Subj Interval history: Patient is feeling better today. She has had one episode of vomiting yesterday but no diarrhea. She has been nauseated at times. She denies any shortness of breath or cough. Exam (Progress Note) - Constitutional Vitals: Period Temp Pulse Resp BP Sys/Block Pulse Ox Last 24 Hr 97.9 F-98.3 F 85-93 12-18 99-134/57-66 95-99 Exam: Examination: GENERAL: No acute distress HEENT: PERRLA. EOMI. Mucous membranes are moist. NECK: Neck is supple. CVS: Regular rate and rhythm. S1 and S2 are normal. RESPIRATORY: Lungs are clear. No rales or rhonchi. ABDOMEN: Soft and nontender. EXT: No edema. SKIN: Warm and dry. MSK: No obvious deformity. Results - Labs CBC & BMP: 05/15/17 06:11 05/15/17 06:10 Lab Results: I have reviewed the past 24 hour labs
--- NOTE | 2017-05-15 10:51 | History and Physical Update ---
History and Physical Update - Physical Exam Mental Status: alert and oriented Heart: regular rate and rhythm Lung: clear to auscultation Abdomen: within normal limits Vitals: within normal limits
--- NOTE | 2017-05-15 11:02 | Operative Note ---
Date of procedure: 05/15/17 Pre-op diagnosis: Recurrent nausea and vomiting Procedure: EGD 56-year-old female with recurrent nausea and vomiting with complaints of epigastric pain now for repeat EGD. Informed consent was obtained with the patient She was sedated with general anesthesia per anesthesia protocol. Patient was placed in the left lateral decubitus position the Olympus flexible video upper endoscope was inserted into the oral cavity under direct vision the esophagus was intubated. Findings: Esophagus-normal esophageal mucosa distal small hiatal hernia. No stricture esophagitis or Marks's was identified. Stomach-normal insufflation normal mucosa to direct retroflexed views of the body, fundus, cardia and antrum of the stomach. Pylorus-normal Duodenum-normal for the bulb and duodenum to the third portion duodenum. The procedure was terminated placed our procedure well she is discharge recovery in good condition. Postop diagnosis: 1. Gastroesophageal reflux disease-continue PPI treatment and antireflux precautions 2. Persistent nausea vomiting question gastroparesis were discussed with the patient trial of Reglan to see if we can ameliorate some of her symptoms based on her previous gastric emptying study that was abnormal. Anesthesia: other (General) Surgeon / Physician: Davis Dillon Estimated blood loss: none Specimens: none sent Condition: stable Disposition: post procedure unit Results - Labs CBC & BMP: 05/15/17 06:11 05/15/17 06:10 Discharge Plan - Discharge Medications No Action predniSONE TAB [PredniSONE] 5 mg PO QAM Mycophenolate Sodium [Mycophenolic Acid] 720 mg PO BID Atorvastatin [Lipitor] 10 mg PO BEDTIME Cholecalciferol (Vitamin D3) [Vitamin D3] 1,000 unit PO QAM Tacrolimus [Tacrolimus Cap] 5 mg PO BID Potassium Chloride [Klor-Con 8] 8 meq PO BID Insulin Aspart [NovoLOG] See Protocol SUBCUT ACHS #1 cartridge Amlodipine Besylate [Amlodipine Besylate] 10 mg PO QAM Levothyroxine Sodium 75 mcg PO QAM Insulin Detemir [Levemir FlexPen] 46 unit SUBCUT BIDAC Zinc Oxide Paste [Desitin Paste] 1 applic TOP PRN PRN applic PRN Reason: Diaper Rash Esomeprazole Magnesium [Esomeprazole] 40 mg PO QAM - Follow Up or Referral - Forms/Instructions
--- NOTE | 2017-05-15 11:13 | Anesthesia Post-Op ---
Anesthesia Post OP - Post Ansesthetic Evaluation Patient seen in post op: Yes Resp: within normal limits CV: within normal limits Mental: within normal limits Temp: within normal limits [id number]: within normal limits Nausea and Vomiting: within normal limits Pain: within normal limits
--- NOTE | 2017-05-15 11:46 | Nephrology Progress Note ---
Nephrology - PN: Subj Interval history: She was seen in the GI lab after EGD. She is awake. She denies nausea at present Exam (PN)-Nephrology - Vital Signs Vital signs: Period Temp Pulse Resp BP Sys/Block Pulse Ox Last 24 Hr 97.5 F-98.3 F 84-93 12-18 88-134/43-66 95-100 Exam: ENT: Normal Cardiovascular: Regular rate and rhythm. No murmur rub or gallop Lungs: Clear Extremities: No edema - Lab 05/15/17 06:11 05/15/17 06:10 Most recent lab results Calcium 8.1 MG/DL (8.5-10.1) L 05/15/17 06:10 Magnesium 1.4 MG/DL (1.8-2.4) L 05/14/17 05:27 Assessment and Plan (1) Status post kidney transplant Status: Chronic Assessment and plan: 56-year-old woman with: * Renal transplant * Acute renal insufficiency due to volume depletion. Renal function has improved significantly with IV fluid since admission. Sodium bicarbonate will be added for metabolic acidosis * Nausea vomiting diarrhea. EGD noted * Mixed inactive tissue disease * Diabetes mellitus * Hypertension Current Visit: No (2) Volume depletion Status: Acute Current Visit: Yes (3) Type 2 diabetes mellitus Status: Chronic Current Visit: Yes (4) Nausea & vomiting Status: Acute Current Visit: No (5) Connective tissue disease Status: Chronic Current Visit: No (6) Hypertension Status: Chronic Current Visit: No (7) Hypothyroidism Status: Chronic Current Visit: No (8) Acute renal failure Status: Resolved Current Visit: No
[2017-05-15] MEDS ORDERED: LIDOCAINE 2% 5 ML VIAL ONE (12:52)
[2017-05-15] MEDS ORDERED: PROPOFOL 200 MG/20 ML VIAL IV ONE (12:52)
[2017-05-15] MEDS: SODIUM BICARBONATE 650 MG TABLET PO SCH ×2 (15:05→21:03)
[2017-05-15] MEDS: MYCOPHENOLIC 360 MG PO SCH (20:58)
[2017-05-15] MEDS: ATORVASTATIN 10 MG TABLET PO SCH (21:00)
[2017-05-15] MEDS: ONDANSETRON 4 MG/2 ML VIAL IV PRN (21:07)
[2017-05-16] MEDS: INSULIN LISPRO 100 UNIT/ML SUBCUT SCH ×4 (07:38→20:46)
[2017-05-16] MEDS: INSULIN GLARGINE 100 UNIT/ML SUBCUT SCH ×2 (07:38→16:34)
[2017-05-16] MEDS: CHOLECALCIFEROL 1,000 UNIT TABLET PO SCH (08:02)
[2017-05-16] MEDS: SODIUM BICARBONATE 650 MG TABLET PO SCH ×3 (08:02→20:48)
[2017-05-16] MEDS: LEVOTHYROXINE 75 MCG TABLET PO SCH (08:02)
[2017-05-16] MEDS: NYSTATIN 500,000 UNIT/5 ML UDCUP SWISH/SWAL SCH ×4 (08:02→20:41)
[2017-05-16] MEDS: amLODIPine 10 MG TABLET PO SCH (08:02)
[2017-05-16] MEDS: TACROLIMUS 0.5 MG CAPSULE PO SCH ×2 (08:02→20:43)
[2017-05-16] MEDS: predniSONE 5 MG TABLET PO SCH (08:03)
[2017-05-16] MEDS: PANTOPRAZOLE 40 MG TABLET PO SCH (08:03)
[2017-05-16] MEDS: MYCOPHENOLIC 360 MG PO SCH ×2 (08:03→20:40)
--- NOTE | 2017-05-16 08:53 | Gastrointestinal Progress Note ---
<Desirae Galeano - Last Filed: 05/16/17 08:50> Assessment and Plan (1) Nausea & vomiting Status: Acute Assessment and plan: 05/16-EGD results noted as below. Continued nausea with abdominal pain with no vomiting. Consider trial of Reglan for gastroparesis indications. Plan an addendum to followed by Dr. Dillon. 05/14-History of nausea and vomiting with associated weakness with history of GERD on last EGD. Intractable vomiting at times over last several days. History of cyclic diarrhea as well. Check stool studies as well as for occult blood. Plan and addendum to follow by Dr Dillon. Current Visit: No Gastroenterology - PN: Subj Interval history: CC: Nausea vomiting Patient is seen awake and alert sitting up on the edge of bed eating breakfast. She is complaining this morning of some abdominal pain but states there is no change in this from her baseline pain. She is having continued nausea but she has denied any vomiting at this time. EGD results on yesterday noted show GERD with no other acute findings. Abdomen is soft nontender with bowel sounds noted. She has not had a bowel movement in 2 days. ROS: Denies shortness breath or chest pain Exam (Progress Note) - Constitutional Vitals: Period Temp Pulse Resp BP Sys/Block Pulse Ox Last 24 Hr 97.3 F-98.4 F 58-94 16-20 88-113/43-68 94-100 General appearance: normal weight, no acute distress - Head Head exam: Present: normal inspection, normocephalic - Eye Eye exam: Present: other (Lids and conjunctive are unremarkable). Absent: scleral icterus - ENT ENT exam: Present: normal exam, normal oropharynx - Neck Neck exam: Present: normal inspection - Respiratory Respiratory exam: Present: clear to auscultation bilaterally. Absent: rales, rhonchi, wheezes - Cardiovascular Cardiovascular exam: Present: regular rate and rhythm. Absent: diastolic murmur , JVD, systolic murmur - GI/Abdominal GI/Abdominal exam: Present: normal bowel sounds, soft. Absent: ascites, distended, mass, organomegaly, tenderness - Extremities Exam Extremities exam: Present: normal inspection, full ROM - Back Exam Back exam: Present: normal inspection - Neurological Exam Neurological exam: Present: alert, oriented X3 - Psychiatric Psychiatric exam: Present: normal affect, normal mood - Skin Skin exam: Present: normal color, warm, dry Results - Labs CBC & BMP: 05/15/17 06:11 05/15/17 06:10 Lab Results: I have reviewed the past 24 hour labs <Davis Dillon - Last Filed: 05/16/17 21:14> Exam (Progress Note) - Constitutional Vitals: Period Temp Pulse Resp BP Sys/Block Pulse Ox Last 24 Hr 97.3 F-98.6 F 68-113 16-20 106-152/55-80 94-100 Results - Labs CBC & BMP: 05/16/17 09:43 05/16/17 09:43
--- NOTE | 2017-05-16 09:12 | Internal Med Progress Note ---
Assessment and Plan (1) Nausea & vomiting Status: Acute Assessment and plan: 56-year-old female admitted to acute care * Intractable nausea, vomiting and diarrhea. EGD noted. Started on Reglan as recommended * Abdominal pain. Etiology unclear. Her abdomen is benign. Constipated * Acute renal insufficiency and chronic renal failure. Patient status post transplant. Continue current treatment * Diabetes. Continue current treatment * Hypertension. Blood pressure is stable. Will check for orthostatic changes * Will repeat her blood work Current Visit: No (2) Type 2 diabetes mellitus Status: Chronic Current Visit: Yes (3) Connective tissue disease Status: Chronic Current Visit: No (4) GERD (gastroesophageal reflux disease) Status: Chronic Current Visit: No (5) Hypertension Status: Chronic Current Visit: No (6) Hypothyroidism Status: Chronic Current Visit: No (7) Insulin dependent diabetes mellitus Status: Deleted Current Visit: No (8) Status post kidney transplant Status: Chronic Current Visit: No Internal Medicine - PN: Subj Interval history: Patient is complaining of mid abdominal pain today. It started this morning. She denies any radiation. She describes it as a new pain today. Exam (Progress Note) - Constitutional Vitals: Period Temp Pulse Resp BP Sys/Block Pulse Ox Last 24 Hr 97.3 F-98.4 F 58-94 16-20 88-113/43-68 94-100 Exam: Examination: GENERAL: No acute distress NECK: Neck is supple. CVS: Regular rate and rhythm. RESPIRATORY: Lungs are clear. ABDOMEN: Soft and nontender. Bowel sounds are present EXT: No edema. SKIN: Warm and dry. MSK: No obvious deformity. Results - Labs CBC & BMP: 05/15/17 06:11 05/15/17 06:10 Lab Results: I have reviewed the past 24 hour labs
[2017-05-16 10:03] LABS: Basophils % 0.2 % (0.0-0.8); Eosinophils % 0.2 % (0.00-10.9); Hematocrit 30.1 VOL% (35.7-47.0); Hemoglobin 9.3 GM/DL (12.0-16.0); Immature Granulocytes % 0.8 %; Lymphocytes # 2.5 10*3/uL (1.4-4.0); Mean Corpuscular HGB Conc 30.9 GM/DL (32-36); Mean Corpuscular Hemoglobin 27 PG (27-34); Mean Corpuscular Volume 88.5 FL (87-102); Monocytes # 0.9 10*3/uL (0.11-0.8); Monocytes % 6.7 % (1.7-12.7); NRBC # 0.02 10*3/uL; Neutrophils # 9.5 10*3/uL (1.4-7.4); Neutrophils % 73.1 % (38.7-73.9); Platelet Count 193 T/CUMM (130-400); Red Cell Distribution Width 16.7 % (9.3-17.3)
[2017-05-16 10:29] LABS: Albumin 2.9 G/DL (3.4-5.0); Bilirubin,Total 0.7 MG/DL (0.2-1.0); Calcium 8.4 MG/DL (8.5-10.1); Osmolality,Calculated 278.5 MOS/KG (273-304); Potassium 3.5 MMOL/L (3.5-5.1); Total Protein 5.7 G/DL (6.4-8.3)
[2017-05-16] MEDS: METOCLOPRAMIDE 10 MG/2 ML VIAL IV SCH ×3 (11:05→22:35)
[2017-05-16] MEDS ORDERED: METOCLOPRAMIDE 5 MG TABLET PO SCH (11:30)
[2017-05-16] MEDS: SODIUM CHLORIDE 0.45% 1,000 ML IV SCH (14:11)
--- NOTE | 2017-05-16 19:27 | Nephrology Progress Note ---
Nephrology - PN: Subj Interval history: She complains of mild abdominal discomfort today. No vomiting this morning. She is still having diarrhea. Exam (PN)-Nephrology - Vital Signs Vital signs: Period Temp Pulse Resp BP Sys/Block Pulse Ox Last 24 Hr 97.3 F-98.6 F 68-113 16-20 106-152/55-80 94-100 Exam: ENT: Normal Cardiovascular: Regular rate and rhythm. No murmur rub or gallop Lungs: Clear Extremities: No edema - Lab 05/16/17 09:43 05/16/17 09:43 Most recent lab results Calcium 8.4 MG/DL (8.5-10.1) L 05/16/17 09:43 Magnesium 1.4 MG/DL (1.8-2.4) L 05/14/17 05:27 Assessment and Plan (1) Status post kidney transplant Status: Chronic Assessment and plan: 56-year-old woman with: * Renal transplant * Acute renal insufficiency. Improving * Metabolic acidosis. Improved with bicarb * Nausea vomiting diarrhea. EGD noted * Mixed connective tissue disease * Diabetes mellitus * Hypertension Current Visit: No (2) Volume depletion Status: Acute Current Visit: Yes (3) Type 2 diabetes mellitus Status: Chronic Current Visit: Yes (4) Nausea & vomiting Status: Acute Current Visit: No (5) Connective tissue disease Status: Chronic Current Visit: No (6) Hypertension Status: Chronic Current Visit: No (7) Hypothyroidism Status: Chronic Current Visit: No (8) Acute renal failure Status: Resolved Current Visit: No
[2017-05-16] MEDS: ATORVASTATIN 10 MG TABLET PO SCH (20:47)
[2017-05-17] MEDS: SODIUM CHLORIDE 0.45% 1,000 ML IV SCH ×2 (03:23→21:12)
[2017-05-17] MEDS: METOCLOPRAMIDE 10 MG/2 ML VIAL IV SCH (05:56)
[2017-05-17] MEDS: TACROLIMUS 0.5 MG CAPSULE PO SCH ×3 (08:09→21:13)
[2017-05-17] MEDS: PANTOPRAZOLE 40 MG TABLET PO SCH (08:10)
[2017-05-17] MEDS: MYCOPHENOLIC 360 MG PO SCH ×2 (08:10→21:12)
[2017-05-17] MEDS: amLODIPine 10 MG TABLET PO SCH (08:10)
[2017-05-17] MEDS: predniSONE 5 MG TABLET PO SCH (08:10)
[2017-05-17] MEDS: INSULIN GLARGINE 100 UNIT/ML SUBCUT SCH ×2 (08:10→16:07)
[2017-05-17] MEDS: CHOLECALCIFEROL 1,000 UNIT TABLET PO SCH (08:10)
[2017-05-17] MEDS: NYSTATIN 500,000 UNIT/5 ML UDCUP SWISH/SWAL SCH ×4 (08:10→21:12)
[2017-05-17] MEDS: SODIUM BICARBONATE 650 MG TABLET PO SCH ×3 (08:10→21:12)
[2017-05-17] MEDS: LEVOTHYROXINE 75 MCG TABLET PO SCH (08:10)
[2017-05-17] MEDS: INSULIN LISPRO 100 UNIT/ML SUBCUT SCH ×4 (08:10→21:13)
[2017-05-17 09:34] LABS: Basophils % 0.1 % (0.0-0.8); Eosinophils % 0.5 % (0.00-10.9); Hematocrit 30.1 VOL% (35.7-47.0); Hemoglobin 9.4 GM/DL (12.0-16.0); Immature Granulocytes % 0.9 %; Immature Granulocytes Absolute 0.08 #; Lymphocytes # 1.7 10*3/uL (1.4-4.0); Lymphocytes % 19.7 % (21.3-54.2); Mean Corpuscular HGB Conc 31.2 GM/DL (32-36); Mean Corpuscular Hemoglobin 28 PG (27-34); Mean Platelet Volume 10.1 FL (9.6-12.0); Monocytes # 0.5 10*3/uL (0.11-0.8); Neutrophils # 6.2 10*3/uL (1.4-7.4); Neutrophils % 72.8 % (38.7-73.9); Platelet Count 153 T/CUMM (130-400); Red Blood Count 3.42 MC/CUMM (3.8-5.5); Red Cell Distribution Width 16.8 % (9.3-17.3); White Blood Count 8.5 T/CUMM (4-12)
[2017-05-17 10:00] LABS: Calcium 7.6 MG/DL (8.5-10.1); Osmolality,Calculated 283.3 MOS/KG (273-304); Potassium 3.4 MMOL/L (3.5-5.1)
--- NOTE | 2017-05-17 10:47 | Gastrointestinal Progress Note ---
<Desirae Galeano - Last Filed: 05/17/17 10:44> Assessment and Plan (1) Nausea & vomiting Status: Acute Assessment and plan: 05/17-N/V improved with initiation of Reglan. Changed from po to IV on yesterday followed by onset of diarrhea, negative stool studies. Will change Reglan back to po today and continue to monitor. Plan and addendum to follow by Dr Dillon. 05/16-EGD results noted as below. Continued nausea with abdominal pain with no vomiting. Consider trial of Reglan for gastroparesis indications. Plan an addendum to followed by Dr. Dillon. 05/14-History of nausea and vomiting with associated weakness with history of GERD on last EGD. Intractable vomiting at times over last several days. History of cyclic diarrhea as well. Check stool studies as well as for occult blood. Plan and addendum to follow by Dr Dillon. Current Visit: No Gastroenterology - PN: Subj Interval history: CC: Nausea, vomiting Pt is seen awake and alert sitting up on side of bed. States that she is feeling some better today. She states that did have onset of loose watery stools on yesterday afternoon following change of her Reglan from po to IV. She denies any abdominal pain associated with this. She states that she has had multiple loose watery stools with no reports of bleeding noted. She did have stools studies done which have all been negative thus far. She does state her nausea is improved and is no longer complaining of abdominal pain. Abdomen is soft, nontender. She has a good appetite and is tolerating more of her diet. ROS: Denies SOB or chest pain Exam (Progress Note) - Constitutional Vitals: Period Temp Pulse Resp BP Sys/Block Pulse Ox Last 24 Hr 97.2 F-98.3 F 82-112 16-18 92-141/46-69 95-100 General appearance: normal weight, no acute distress - Head Head exam: Present: normal inspection, normocephalic - Eye Eye exam: Present: other (lids and conjunctiva unremarkable). Absent: scleral icterus - ENT ENT exam: Present: normal exam, normal oropharynx - Neck Neck exam: Present: normal inspection - Respiratory Respiratory exam: Present: clear to auscultation bilaterally. Absent: rales, rhonchi, wheezes - Cardiovascular Cardiovascular exam: Present: regular rate and rhythm. Absent: diastolic murmur , JVD, systolic murmur - GI/Abdominal GI/Abdominal exam: Present: normal bowel sounds, soft. Absent: ascites, distended, mass, organomegaly, tenderness - Extremities Exam Extremities exam: Present: normal inspection, full ROM - Back Exam Back exam: Present: normal inspection - Neurological Exam Neurological exam: Present: alert, oriented X3 - Psychiatric Psychiatric exam: Present: normal affect, normal mood - Skin Skin exam: Present: normal color, warm, dry Results - Labs CBC & BMP: 05/17/17 09:17 05/17/17 09:17 Lab Results: I have reviewed the past 24 hour labs <Davis Dillon - Last Filed: 05/17/17 11:31> Exam (Progress Note) - Constitutional Vitals: Period Temp Pulse Resp BP Sys/Block Pulse Ox Last 24 Hr 97.2 F-98.5 F 82-112 16-18 92-141/46-69 95-100 Results - Labs CBC & BMP: 05/17/17 09:17 05/17/17 09:17
--- NOTE | 2017-05-17 11:38 | Internal Med Progress Note ---
Assessment and Plan (1) Nausea & vomiting Status: Acute Assessment and plan: 56-year-old female admitted to acute care * Intractable nausea, vomiting and diarrhea. Overall nausea and vomiting are better. Diarrhea could have been due to IV Reglan.Will give her IV fluids. * Renal function is overall better. She is on Prograf and her dose was high. Discussed with Dr. Pedroza. He will hold it for a few days and then start back on the lower dose. * Diabetes. Continue current treatment * Hypertension. Blood pressure is stable. Will check for orthostatic changes * Will repeat her blood work Current Visit: No (2) Type 2 diabetes mellitus Status: Chronic Current Visit: Yes (3) Connective tissue disease Status: Chronic Current Visit: No (4) GERD (gastroesophageal reflux disease) Status: Chronic Current Visit: No (5) Hypertension Status: Chronic Current Visit: No (6) Hypothyroidism Status: Chronic Current Visit: No (7) Insulin dependent diabetes mellitus Status: Deleted Current Visit: No (8) Status post kidney transplant Status: Chronic Current Visit: No Internal Medicine - PN: Subj Interval history: Patient is complaining of diarrhea this morning. She has gone 4 times. She feels weak. Exam (Progress Note) - Constitutional Vitals: Period Temp Pulse Resp BP Sys/Block Pulse Ox Last 24 Hr 97.2 F-98.5 F 82-112 16-18 92-141/46-69 95-100 Exam: Examination: GENERAL: No acute distress NECK: Neck is supple. CVS: Regular rate and rhythm. RESPIRATORY: Lungs are clear. ABDOMEN: Soft and nontender. Bowel sounds are present EXT: No edema. SKIN: Warm and dry. MSK: No obvious deformity. Results - Labs CBC & BMP: 05/17/17 09:17 05/17/17 09:17 Lab Results: I have reviewed the past 24 hour labs
--- NOTE | 2017-05-17 12:29 | Nephrology Progress Note ---
Nephrology - PN: Subj Interval history: No nausea or abdominal pain today. However she is still having diarrhea. Exam (PN)-Nephrology - Vital Signs Vital signs: Period Temp Pulse Resp BP Sys/Block Pulse Ox Last 24 Hr 97.2 F-98.5 F 82-111 16-18 92-141/46-69 95-100 Exam: ENT: Normal Cardiovascular: Regular rate and rhythm. No murmur rub or gallop Lungs: Clear Extremities: No edema - Lab 05/17/17 09:17 05/17/17 09:17 Most recent lab results Calcium 7.6 MG/DL (8.5-10.1) L 05/17/17 09:17 Magnesium 1.4 MG/DL (1.8-2.4) L 05/14/17 05:27 Assessment and Plan (1) Status post kidney transplant Status: Chronic Assessment and plan: 56-year-old woman with: * Renal transplant. Prograf level is elevated at 24. Her dose has not been changed in quite some time. Review of her medications indicates Reglan will increase Prograf levels. It will be held temporarily, then restarted at 3 mg twice daily * Acute renal insufficiency. Improving * Metabolic acidosis. Improved with bicarb * Nausea vomiting diarrhea. EGD noted * Mixed connective tissue disease * Diabetes mellitus * Hypertension Current Visit: No (2) Volume depletion Status: Acute Current Visit: Yes (3) Type 2 diabetes mellitus Status: Chronic Current Visit: Yes (4) Nausea & vomiting Status: Acute Current Visit: No (5) Connective tissue disease Status: Chronic Current Visit: No (6) Hypertension Status: Chronic Current Visit: No (7) Hypothyroidism Status: Chronic Current Visit: No (8) Acute renal failure Status: Resolved Current Visit: No
[2017-05-17] MEDS: METOCLOPRAMIDE 10 MG TABLET PO SCH ×2 (13:08→16:07)
[2017-05-17] MEDS: ATORVASTATIN 10 MG TABLET PO SCH (21:12)
[2017-05-18 05:30] LABS: Basophils % 0.1 % (0.0-0.8); Eosinophils # 0.1 10*3/uL (0.0-0.87); Eosinophils % 0.9 % (0.00-10.9); Hematocrit 26.7 VOL% (35.7-47.0); Hemoglobin 8.3 GM/DL (12.0-16.0); Immature Granulocytes % 0.8 %; Immature Granulocytes Absolute 0.08 #; Lymphocytes % 19.6 % (21.3-54.2); Mean Corpuscular HGB Conc 31.1 GM/DL (32-36); Mean Corpuscular Hemoglobin 28 PG (27-34); Mean Platelet Volume 10.7 FL (9.6-12.0); Monocytes # 0.6 10*3/uL (0.11-0.8); Monocytes % 6.3 % (1.7-12.7); Neutrophils # 7.2 10*3/uL (1.4-7.4); Neutrophils % 72.3 % (38.7-73.9); Platelet Count 147 T/CUMM (130-400); Red Cell Distribution Width 16.9 % (9.3-17.3)
[2017-05-18 05:54] LABS: Calcium 7.2 MG/DL (8.5-10.1); Osmolality,Calculated 282.1 MOS/KG (273-304); Potassium 3.4 MMOL/L (3.5-5.1)
[2017-05-18] MEDS: INSULIN LISPRO 100 UNIT/ML SUBCUT SCH ×4 (07:30→20:36)
--- NOTE | 2017-05-18 08:23 | Internal Med Progress Note ---
Assessment and Plan (1) Nausea & vomiting Status: Acute Assessment and plan: 56-year-old female admitted to acute care * Intractable nausea, vomiting and diarrhea. Overall much better. Continue IV fluids. Dr. Pedroza is recommended to stop Reglan because of possible interaction and increasing to level of Prograf. * Renal function is overall better. Her Prograf has been held. This will be restarted per Dr. Pedroza. Will check a level on Sunday. * Diabetes. Continue current treatment * Hypertension. Blood pressure is stable. * Dehydration. Better. Continue IV fluid * Will replace her potassium Current Visit: No (2) Type 2 diabetes mellitus Status: Chronic Current Visit: Yes (3) Connective tissue disease Status: Chronic Current Visit: No (4) GERD (gastroesophageal reflux disease) Status: Chronic Current Visit: No (5) Hypertension Status: Chronic Current Visit: No (6) Hypothyroidism Status: Chronic Current Visit: No (7) Insulin dependent diabetes mellitus Status: Deleted Current Visit: No (8) Status post kidney transplant Status: Chronic Current Visit: No Internal Medicine - PN: Subj Interval history: Patient is feeling better today. Her diarrhea is improving. She has not had any nausea or vomiting. She denies any chest pain or shortness of breath. Exam (Progress Note) - Constitutional Vitals: Period Temp Pulse Resp BP Sys/Block Pulse Ox Last 24 Hr 97.8 F-98.6 F 78-98 18-18 96-116/54-71 96-98 Exam: Examination: GENERAL: No acute distress NECK: Neck is supple. CVS: Regular rate and rhythm. RESPIRATORY: Lungs are clear. ABDOMEN: Soft and nontender. Bowel sounds are present EXT: No edema. SKIN: Warm and dry. MSK: No obvious deformity. Results - Labs CBC & BMP: 05/18/17 04:54 05/18/17 04:54 Lab Results: I have reviewed the past 24 hour labs
[2017-05-18] MEDS: INSULIN GLARGINE 100 UNIT/ML SUBCUT SCH ×2 (08:52→16:55)
[2017-05-18] MEDS: NYSTATIN 500,000 UNIT/5 ML UDCUP SWISH/SWAL SCH ×4 (08:53→20:44)
[2017-05-18] MEDS: POTASSIUM CHLORIDE 8 MEQ CAPSULE PO SCH (08:53)
[2017-05-18] MEDS: SODIUM BICARBONATE 650 MG TABLET PO SCH ×3 (08:53→20:44)
[2017-05-18] MEDS: LEVOTHYROXINE 75 MCG TABLET PO SCH (08:53)
[2017-05-18] MEDS: PANTOPRAZOLE 40 MG TABLET PO SCH (08:53)
[2017-05-18] MEDS: CHOLECALCIFEROL 1,000 UNIT TABLET PO SCH (08:53)
[2017-05-18] MEDS: amLODIPine 10 MG TABLET PO SCH (08:53)
[2017-05-18] MEDS: predniSONE 10 MG TABLET PO SCH (08:53)
[2017-05-18] MEDS: MYCOPHENOLIC 360 MG PO SCH ×2 (08:54→20:44)
[2017-05-18] MEDS: METOCLOPRAMIDE 10 MG TABLET PO SCH (09:01)
--- NOTE | 2017-05-18 09:05 | Gastrointestinal Progress Note ---
<Shabnam Galeanoher Josy - Last Filed: 05/18/17 09:03> Assessment and Plan (1) Nausea & vomiting Status: Acute Assessment and plan: 05/18-no complaints of abdominal pain or nausea or vomiting. Diarrhea improved. Negative stool studies. Tolerating p.o. Reglan. Plan an addendum to follow Dr. Dillon. 05/17-N/V improved with initiation of Reglan. Changed from po to IV on yesterday followed by onset of diarrhea, negative stool studies. Will change Reglan back to po today and continue to monitor. Plan and addendum to follow by Dr Dillon. 05/16-EGD results noted as below. Continued nausea with abdominal pain with no vomiting. Consider trial of Reglan for gastroparesis indications. Plan an addendum to followed by Dr. Dillon. 05/14-History of nausea and vomiting with associated weakness with history of GERD on last EGD. Intractable vomiting at times over last several days. History of cyclic diarrhea as well. Check stool studies as well as for occult blood. Plan and addendum to follow by Dr Dillon. Current Visit: No Gastroenterology - PN: Subj Interval history: CC: Nausea vomiting Patient is seen awake and alert sitting up on edge of bed doing physical therapy. She states she is feeling better today. Her diarrhea has improved and her stool studies remains negative. She states her nausea is much better and has no complaints of abdominal pain. She is tolerating her diet with increased appetite. Patient states overall she feels she is much better at this time. Abdomen is soft, nontender. She is tolerating the p.o. Reglan. ROS: Denies shortness of breath or chest pain Exam (Progress Note) - Constitutional Vitals: Period Temp Pulse Resp BP Sys/Block Pulse Ox Last 24 Hr 97.8 F-98.6 F 78-98 18-18 96-116/54-71 96-98 General appearance: normal weight, no acute distress - Head Head exam: Present: normal inspection, normocephalic - Eye Eye exam: Present: other (Lids and conjunctivae are unremarkable). Absent: scleral icterus - ENT ENT exam: Present: normal exam, normal oropharynx - Neck Neck exam: Present: normal inspection - Respiratory Respiratory exam: Present: clear to auscultation bilaterally. Absent: rales, rhonchi, wheezes - Cardiovascular Cardiovascular exam: Present: regular rate and rhythm. Absent: diastolic murmur , JVD, systolic murmur - GI/Abdominal GI/Abdominal exam: Present: normal bowel sounds, soft. Absent: ascites, distended, mass, organomegaly, tenderness - Extremities Exam Extremities exam: Present: normal inspection, full ROM - Back Exam Back exam: Present: normal inspection - Neurological Exam Neurological exam: Present: alert, oriented X3 - Psychiatric Psychiatric exam: Present: normal affect, normal mood - Skin Skin exam: Present: normal color, warm, dry Results - Labs CBC & BMP: 05/18/17 04:54 05/18/17 04:54 Lab Results: I have reviewed the past 24 hour labs <Davis Dillon - Last Filed: 05/18/17 20:21> Exam (Progress Note) - Constitutional Vitals: Period Temp Pulse Resp BP Sys/Block Pulse Ox Last 24 Hr 97.4 F-98.3 F 86-93 18-20 96-108/55-71 96-98 Results - Labs CBC & BMP: 05/18/17 04:54 05/18/17 04:54
[2017-05-18] MEDS: SODIUM CHLORIDE 0.45% 1,000 ML IV SCH (10:12)
[2017-05-18] MEDS: DEXTROSE 50% 25 GM/50 ML VIAL IV PRN ×2 (12:20→17:24)
[2017-05-18] MEDS ORDERED: DEXTROSE 50% 25 GM/50 ML VIAL IV ONE (12:22)
--- NOTE | 2017-05-18 17:15 | Nephrology Progress Note ---
Nephrology - PN: Subj Interval history: Diarrhea has improved. No nausea today. No shortness of breath Exam (PN)-Nephrology - Vital Signs Vital signs: Period Temp Pulse Resp BP Sys/Block Pulse Ox Last 24 Hr 97.4 F-98.6 F 83-93 18-20 96-116/55-71 96-98 Exam: Gen.: Alert and oriented x3. ENT: Pupils equal round reactive to light. EOMs intact. Mucous membranes moist. Neck: Supple. No JVD or bruit. Cardiovascular: Regular rate and rhythm. No murmur rub or gallop Lungs: Clear Abdomen: Soft. Nontender. Positive bowel sounds. No organomegaly Extremities: No edema - Lab 05/18/17 04:54 05/18/17 04:54 Most recent lab results Calcium 7.2 MG/DL (8.5-10.1) L 05/18/17 04:54 Magnesium 1.4 MG/DL (1.8-2.4) L 05/14/17 05:27 Assessment and Plan (1) Status post kidney transplant Status: Chronic Assessment and plan: 56-year-old woman with: * Renal transplant. Renal function improving. Prograf on hold * Acute renal insufficiency. Improving * Metabolic acidosis. Improved with bicarb * Nausea vomiting diarrhea. EGD noted * Mixed connective tissue disease * Diabetes mellitus * Hypertension Current Visit: No (2) Volume depletion Status: Acute Current Visit: Yes (3) Type 2 diabetes mellitus Status: Chronic Current Visit: Yes (4) Nausea & vomiting Status: Acute Current Visit: No (5) Connective tissue disease Status: Chronic Current Visit: No (6) Hypertension Status: Chronic Current Visit: No (7) Hypothyroidism Status: Chronic Current Visit: No (8) Acute renal failure Status: Resolved Current Visit: No
[2017-05-18] MEDS: ATORVASTATIN 10 MG TABLET PO SCH (20:44)
[2017-05-19] MEDS: SODIUM CHLORIDE 0.45% 1,000 ML IV SCH ×2 (00:10→13:40)
[2017-05-19] MEDS: INSULIN GLARGINE 100 UNIT/ML SUBCUT SCH (08:37)
[2017-05-19] MEDS: INSULIN LISPRO 100 UNIT/ML SUBCUT SCH ×4 (08:37→21:28)
[2017-05-19] MEDS: LEVOTHYROXINE 75 MCG TABLET PO SCH (09:14)
[2017-05-19] MEDS: predniSONE 10 MG TABLET PO SCH (09:14)
[2017-05-19] MEDS: amLODIPine 10 MG TABLET PO SCH (09:14)
[2017-05-19] MEDS: POTASSIUM CHLORIDE 8 MEQ CAPSULE PO SCH (09:14)
[2017-05-19] MEDS: PANTOPRAZOLE 40 MG TABLET PO SCH (09:15)
[2017-05-19] MEDS: SODIUM BICARBONATE 650 MG TABLET PO SCH ×3 (09:15→21:27)
[2017-05-19] MEDS: NYSTATIN 500,000 UNIT/5 ML UDCUP SWISH/SWAL SCH ×4 (09:15→21:27)
[2017-05-19] MEDS: CHOLECALCIFEROL 1,000 UNIT TABLET PO SCH (09:15)
[2017-05-19] MEDS: MYCOPHENOLIC 360 MG PO SCH ×2 (09:16→21:30)
--- NOTE | 2017-05-19 09:34 | Nephrology Progress Note ---
Nephrology - PN: Subj Interval history: No acute overnight events. No renal labs. Exam (PN)-Nephrology - Vital Signs Vital signs: Period Temp Pulse Resp BP Sys/Block Pulse Ox Last 24 Hr 98.0 F-98.3 F 85-93 18-20 95-109/55-64 95-98 Exam: Pt not examined. Chart and data reviewed. - Lab 05/18/17 04:54 05/18/17 04:54 Most recent lab results Calcium 7.2 MG/DL (8.5-10.1) L 05/18/17 04:54 Magnesium 1.4 MG/DL (1.8-2.4) L 05/14/17 05:27 Assessment and Plan (1) Status post kidney transplant Problem details: no new recs. Status: Chronic Current Visit: No
[2017-05-19] MEDS: DEXTROSE 50% 25 GM/50 ML VIAL IV PRN (14:00)
--- NOTE | 2017-05-19 14:23 | Internal Med Progress Note ---
Assessment and Plan (1) Volume depletion Status: Acute Current Visit: Yes (2) Type 2 diabetes mellitus Status: Chronic Current Visit: Yes (3) Hypoglycemia Status: Acute Current Visit: Yes (4) Status post kidney transplant Problem details: no new recs. Status: Chronic Current Visit: Yes Internal Medicine - PN: Subj Interval history: This is a 56 year old female patient of Dr. Gonsalves with history of DM, HTN, history of chronic renal failure and kidney transplant 9 years ago, anemia of chronic disease, who presented with persistent diarrhea and vomiting that is now attributed to Pragraf toxicity. After stopping it, the vomiting has resolved and diarrhea is starting to slow down. Prednisone has helped. Also, she has been hypoglycemic and Lantus has been discontinued for now. Exam (Progress Note) - Constitutional Vitals: Period Temp Pulse Resp BP Sys/Block Pulse Ox Last 24 Hr 98.1 F-98.3 F 85-93 18-20 95-109/55-60 95-98 General appearance: no acute distress - Head Head exam: Present: normocephalic - Eye Eye exam: Present: EOMI - Respiratory Respiratory exam: Present: clear to auscultation bilaterally - Cardiovascular Cardiovascular exam: Present: regular rate and rhythm - GI/Abdominal GI/Abdominal exam: Present: soft - Extremities Exam Extremities exam: Absent: edema - Neurological Exam Neurological exam: Present: alert - Psychiatric Psychiatric exam: Present: normal mood - Skin Skin exam: Present: warm, dry Results - Labs CBC & BMP: 05/18/17 04:54 05/18/17 04:54
[2017-05-19] MEDS: ATORVASTATIN 10 MG TABLET PO SCH (21:27)
[2017-05-20] MEDS: SODIUM CHLORIDE 0.45% 1,000 ML IV SCH ×2 (03:03→18:04)
[2017-05-20] MEDS: LEVOTHYROXINE 75 MCG TABLET PO SCH (09:16)
[2017-05-20] MEDS: POTASSIUM CHLORIDE 8 MEQ CAPSULE PO SCH (09:16)
[2017-05-20] MEDS: NYSTATIN 500,000 UNIT/5 ML UDCUP SWISH/SWAL SCH ×4 (09:16→20:38)
[2017-05-20] MEDS: MYCOPHENOLIC 360 MG PO SCH ×2 (09:17→20:38)
[2017-05-20] MEDS: SODIUM BICARBONATE 650 MG TABLET PO SCH ×3 (09:17→20:38)
[2017-05-20] MEDS: amLODIPine 10 MG TABLET PO SCH (09:17)
[2017-05-20] MEDS: PANTOPRAZOLE 40 MG TABLET PO SCH (09:17)
[2017-05-20] MEDS: predniSONE 10 MG TABLET PO SCH (09:17)
[2017-05-20] MEDS: CHOLECALCIFEROL 1,000 UNIT TABLET PO SCH (09:17)
[2017-05-20] MEDS: INSULIN LISPRO 100 UNIT/ML SUBCUT SCH ×4 (09:18→20:38)
[2017-05-20 10:05] LABS: Basophils % 0.1 % (0.0-0.8); Eosinophils # 0.2 10*3/uL (0.0-0.87); Eosinophils % 1.6 % (0.00-10.9); Hematocrit 27.5 VOL% (35.7-47.0); Hemoglobin 8.6 GM/DL (12.0-16.0); Immature Granulocytes % 0.9 %; Immature Granulocytes Absolute 0.09 #; Lymphocytes # 1.7 10*3/uL (1.4-4.0); Lymphocytes % 17.1 % (21.3-54.2); Mean Corpuscular HGB Conc 31.3 GM/DL (32-36); Mean Corpuscular Hemoglobin 28 PG (27-34); Mean Corpuscular Volume 87.9 FL (87-102); Mean Platelet Volume 10.8 FL (9.6-12.0); Monocytes # 0.8 10*3/uL (0.11-0.8); Monocytes % 8.3 % (1.7-12.7); Platelet Count 172 T/CUMM (130-400); Red Blood Count 3.13 MC/CUMM (3.8-5.5); Red Cell Distribution Width 17.2 % (9.3-17.3); White Blood Count 9.7 T/CUMM (4-12)
[2017-05-20 10:41] LABS: Calcium 6.8 MG/DL (8.5-10.1); Osmolality,Calculated 276.1 MOS/KG (273-304); Potassium 3.3 MMOL/L (3.5-5.1)
--- NOTE | 2017-05-20 11:39 | Nephrology Progress Note ---
Nephrology - PN: Subj Interval history: Diarrhea, nausea due to tacrolimus toxicity (24), resolved. Still on hold, trough ordered today pending. Exam (PN)-Nephrology - Vital Signs Vital signs: Period Temp Pulse Resp BP Sys/Block Pulse Ox Last 24 Hr 97.2 F-98.8 F 80-99 15-26 91-122/52-82 94-98 - General Appearance General appearance: well-developed, well-nourished EENT: ATNC, PERRL, mucous membranes dry, hearing intact, vision intact Neck: no JVD, no thyromegaly Respiratory: no kyphosis, no scoliosis Cardiology: no murmurs, no rub Neurologic: no focal deficit, no asterixis Musculoskeletal: no deformities, no erythema Psychiatric: mood/affect appropriate, cooperative - Lab 05/20/17 09:40 05/20/17 09:40 Most recent lab results Calcium 6.8 MG/DL (8.5-10.1) L 05/20/17 09:40 Magnesium 1.4 MG/DL (1.8-2.4) L 05/14/17 05:27 Assessment and Plan (1) Status post kidney transplant Status: Chronic Current Visit: Yes (2) Tacrolimus-induced nephrotoxicity Problem details: goal trough 3-6. Level pending. Status: Acute Current Visit : Yes
[2017-05-20] MEDS: methylPREDNISolone SOD SUC 40 MG/1 ML VIAL IV SCH ×2 (12:30→21:13)
--- NOTE | 2017-05-20 16:51 | Internal Med Progress Note ---
Assessment and Plan (1) Volume depletion Status: Resolved Current Visit: Yes (2) Type 2 diabetes mellitus Status: Chronic Current Visit: Yes (3) Hypoglycemia Status: Acute Current Visit: Yes (4) Status post kidney transplant Status: Chronic Current Visit: Yes (5) Diarrhea Status: Resolved Current Visit: Yes (6) Tacrolimus-induced nephrotoxicity Problem details: goal trough 3-6. Level pending. Status: Resolved Current Visit: Yes Internal Medicine - PN: Subj Interval history: This is a 56 year old female patient of Dr. Gonsalves with history of DM, HTN, history of chronic renal failure and kidney transplant 9 years ago, anemia of chronic disease, who presented with persistent diarrhea and vomiting that is now attributed to Pragraf toxicity. After stopping it, the vomiting has resolved and diarrhea is starting to slow down. Prednisone has helped. Also, she has been hypoglycemic and Lantus has been discontinued for now. May 20: She is feeling better with Solumedrol. Continuing Prednisone as well and Dr. Gonsalves to adjust dose at discharge. Diarrhea largely resolved. Replacing potassium. Exam (Progress Note) - Constitutional Vitals: Period Temp Pulse Resp BP Sys/Block Pulse Ox Last 24 Hr 97.8 F-98.8 F 80-101 15-26 93-118/52-78 96-99 Results - Labs CBC & BMP: 05/20/17 09:40 05/20/17 09:40
[2017-05-20] MEDS: ATORVASTATIN 10 MG TABLET PO SCH (20:38)
[2017-05-20] MEDS ORDERED: POTASSIUM CHLORIDE 20 MEQ TABLET PO ONE (22:35)
[2017-05-21] MEDS: SODIUM CHLORIDE 0.45% 1,000 ML IV SCH ×2 (04:26→08:26)
[2017-05-21 05:53] LABS: Hematocrit 25.4 VOL% (35.7-47.0); Red Blood Count 2.91 MC/CUMM (3.8-5.5); White Blood Count 5.8 T/CUMM (4-12)
[2017-05-21 05:54] LABS: Basophils % 0.2 % (0.0-0.8); Immature Granulocytes % 1.9 %; Immature Granulocytes Absolute 0.11 #; Lymphocytes # 0.4 10*3/uL (1.4-4.0); Lymphocytes % 7.2 % (21.3-54.2); Mean Corpuscular HGB Conc 31.5 GM/DL (32-36); Mean Corpuscular Hemoglobin 28 PG (27-34); Mean Corpuscular Volume 87.3 FL (87-102); Monocytes # 0.1 10*3/uL (0.11-0.8); Monocytes % 1.2 % (1.7-12.7); Neutrophils # 5.2 10*3/uL (1.4-7.4); Neutrophils % 89.5 % (38.7-73.9); Platelet Count 165 T/CUMM (130-400); Red Cell Distribution Width 17.3 % (9.3-17.3)
[2017-05-21 06:26] LABS: Calcium 6.2 MG/DL (8.5-10.1); Osmolality,Calculated 282.3 MOS/KG (273-304); Potassium 4.1 MMOL/L (3.5-5.1)
[2017-05-21] MEDS: INSULIN LISPRO 100 UNIT/ML SUBCUT SCH ×2 (08:26→11:20)
--- NOTE | 2017-05-21 08:50 | Discharge Summary ---
Hospital Course - Hospital Course Hospital Course: Patient is 56-year-old female with history of diabetes, hypertension, chronic renal failure status post transplant, hypothyroidism and connective tissue disease. She was admitted with intractable nausea vomiting and diarrhea. She was seen in consultation by GI as well as nephrology. She underwent workup. Her Prograf level was found to be toxic. It has been held for past several days. Level was drawn yesterday. Her prednisone dose was increased during the hospital stay because of possible adrenal insufficiency. Her blood sugars have been dropping and her insulin has been stopped. Her hematocrit has stayed on the lower side. She was evaluated by therapy and it was felt that she would benefit from swing bed placement. She has felt better over last few days. Her IV steroids will be stopped. Prograf will be restarted at a smaller dose. Level is pending at this time. She will be transferred to the swing bed unit Diagnosis - Discharge Diagnosis (1) Nausea & vomiting Status: Acute (2) Type 2 diabetes mellitus Status: Chronic (3) Connective tissue disease Status: Chronic (4) GERD (gastroesophageal reflux disease) Status: Chronic (5) Hypertension Status: Chronic (6) Hypothyroidism Status: Chronic (7) Insulin dependent diabetes mellitus Status: Deleted (8) Status post kidney transplant Status: Chronic Discharge Plan - Discharge Data Disposition: Disch/Xfer to Snf Condition at Discharge: Stable Discharge Diet: advance to your usual diet, diabetic diet Activity: as per physical therapy - Discharge Medications New Insulin Lispro [HumaLOG] See Protocol SUBCUT ACHS unit Potassium Chloride Cap/Tab [K Dur] 20 meq PO DAILY tablet Sodium Bicarb Tab 650 mg PO TID tablet predniSONE TAB [PredniSONE] 10 mg PO QAM tablet Continue Mycophenolate Sodium [Mycophenolic Acid] 720 mg PO BID Atorvastatin [Lipitor] 10 mg PO BEDTIME Cholecalciferol (Vitamin D3) [Vitamin D3] 1,000 unit PO QAM Insulin Aspart [NovoLOG] See Protocol SUBCUT ACHS #1 cartridge Levothyroxine Sodium 75 mcg PO QAM Zinc Oxide Paste [Desitin Paste] 1 applic TOP PRN PRN applic PRN Reason: Diaper Rash Esomeprazole Magnesium [Esomeprazole] 40 mg PO QAM Changed Tacrolimus [Tacrolimus Cap] 3 mg PO BID #0 Discontinued predniSONE TAB [PredniSONE] 5 mg PO QAM Potassium Chloride [Klor-Con 8] 8 meq PO BID Amlodipine Besylate [Amlodipine Besylate] 10 mg PO QAM Insulin Detemir [Levemir FlexPen] 46 unit SUBCUT BIDAC - Follow Up or Referral - Forms/Instructions Exam - Constitutional Vitals: Period Temp Pulse Resp BP Sys/Block Pulse Ox Last 24 Hr 97.7 F-98.3 F 81-116 15-19 91-118/47-70 91-99 Exam: Examination: GENERAL: No acute distress NECK: Neck is supple. CVS: Regular rate and rhythm. RESPIRATORY: Lungs are clear. ABDOMEN: Soft and nontender. Bowel sounds are present EXT: No edema. SKIN: Warm and dry. MSK: No obvious deformity. Discharge Results Procedures and tests throughout hospitalization: Pending Orders 05/16/17 10:00 Occult Blood, Stool Routine 05/20/17 05:00 Tacrolimus (Prograf) IN AM 05/22/17 04:00 Basic Metabolic Panel IN AM Comp Blood Count Auto Diff IN AM Labs on day of discharge: Labs from last 24 hours 05/21/17 05/21/17 05/21/17 07:21 05:25 05:25 WBC 5.8 D RBC 2.91 L Hgb 8.0 L Hct 25.4 L MCV 87.3 MCH 28 MCHC 31.5 L RDW 17.3 Plt Count 165 MPV 11.0 Neut % (Auto) 89.5 H Lymph % (Auto) 7.2 L [place] % (Auto) 1.2 L Eos % (Auto) 0.0 Baso % (Auto) 0.2 Neut # (Auto) 5.2 Lymph # (Auto) 0.4 L [place] # (Auto) 0.1 L Eos # (Auto) 0.0 Baso # (Auto) 0.0 Immature Gran % 1.9 Nucleated RBC % 0.0 Immature Gran # 0.11 Nucleated RBCs # 0.00 Immature Plt Fraction 0.0 Sodium 141 Potassium 4.1 Chloride 111 H Carbon Dioxide 18 L Anion Gap 16.1 H BUN 7 Creatinine 1.20 H GFR Calculation 57 BUN/Creatinine Ratio 5.00 L Glucose 171 H POC Glucose 193 H Calculated Osmolality 282.3 Calcium 6.2 L 05/20/17 05/20/17 05/20/17 19:57 15:26 11:35 WBC RBC Hgb Hct MCV MCH MCHC RDW Plt Count MPV Neut % (Auto) Lymph % (Auto) [place] % (Auto) Eos % (Auto) Baso % (Auto) Neut # (Auto) Lymph # (Auto) [place] # (Auto) Eos # (Auto) Baso # (Auto) Immature Gran % Nucleated RBC % Immature Gran # Nucleated RBCs # Immature Plt Fraction Sodium Potassium Chloride Carbon Dioxide Anion Gap BUN Creatinine GFR Calculation BUN/Creatinine Ratio Glucose POC Glucose 125 H 92 74 Calculated Osmolality Calcium 05/20/17 05/20/17 05/20/17 09:43 09:40 09:40 WBC 9.7 RBC 3.13 L Hgb 8.6 L Hct 27.5 L MCV 87.9 MCH 28 MCHC 31.3 L RDW 17.2 Plt Count 172 MPV 10.8 Neut % (Auto) 72.0 Lymph % (Auto) 17.1 L [place] % (Auto) 8.3 Eos % (Auto) 1.6 Baso % (Auto) 0.1 Neut # (Auto) 7.0 Lymph # (Auto) 1.7 [place] # (Auto) 0.8 Eos # (Auto) 0.2 Baso # (Auto) 0.0 Immature Gran % 0.9 Nucleated RBC % 0.0 Immature Gran # 0.09 Nucleated RBCs # 0.00 Immature Plt Fraction 0.0 Sodium 142 Potassium 3.3 L Chloride 111 H Carbon Dioxide 18 L Anion Gap 16.3 H BUN 5 L Creatinine 1.30 H GFR Calculation 52 BUN/Creatinine Ratio 3.00 L Glucose 51 L POC Glucose 68 L Calculated Osmolality 276.1 Calcium 6.8 L DS: Provider Date of admission: 05/12/17 18:42 Primary care physician: Thai Gonsalves MD Attending physician on admission: Thai Gonsalves MD Consults: 05/12/17 18:42 Consult to Case Mgmt/Social Srvs [CONS] Routine Reason for Case Mgmt/Social Srvs: Discharge Planning 05/12/17 20:31 Consult to Dietitian [CONS] Routine Reason for Dietitian: Diet Instruction Consult to Pastoral Services [CONS] Routine Comment: Pastoral Screen: Request [employer] Visit Pastoral Screen Source of Request: Patient 05/14/17 08:41 Consult to Physician [CONS] Routine Comment: N/V/D on prograft, HX kidney transplant Consulting Provider: Derek Pedroza Person Notified: Susan Date Notified: 05/14/17 Time Notified: 08:50 Consult Notification Comment: left message [id number] 05/14/17 08:43 Consult to Physician [CONS] Routine Comment: N/V/D, pt known to you Consulting Provider: Davis Dillon Person Notified: Desirae Mary Date Notified: 05/14/17 05/16/17 08:58 Consult to Physical Therapy [CONS] Routine Reason for Physical Therapy: Evaluate and Treat 05/16/17 08:59 Consult to Occupational Therapy [CONS] Routine Reason for Occupational Therapy: Evaluate and Treat 05/16/17 09:03 Consult to Case Mgmt/Social Srvs [CONS] Routine Reason for Case Mgmt/Social Srvs: Rehab Discharging clinician: Thai Gonsalves MD
[2017-05-21] MEDS ORDERED: POTASSIUM CHLORIDE 20 MEQ TABLET PO SCH (09:00)
[2017-05-21] MEDS: NYSTATIN 500,000 UNIT/5 ML UDCUP SWISH/SWAL SCH ×2 (09:53→13:49)
[2017-05-21] MEDS: PANTOPRAZOLE 40 MG TABLET PO SCH (09:54)
[2017-05-21] MEDS: LEVOTHYROXINE 75 MCG TABLET PO SCH (09:54)
[2017-05-21] MEDS: predniSONE 10 MG TABLET PO SCH (09:54)
[2017-05-21] MEDS: SODIUM BICARBONATE 650 MG TABLET PO SCH (09:55)
[2017-05-21] MEDS: MYCOPHENOLIC 360 MG PO SCH (09:56)
[2017-05-21] MEDS: CHOLECALCIFEROL 1,000 UNIT TABLET PO SCH (10:00)
[2017-05-21] MEDS: methylPREDNISolone SOD SUC 40 MG/1 ML VIAL IV SCH (10:31)
[2017-05-21 11:19] VITALS: BP 118/75
[2017-05-21] MEDS ORDERED: INFLUENZA VIRUS VACCINE 0.5 ML SYRINGE IM ONE (12:27)
--- NOTE | 2017-05-21 14:25 | Nephrology Progress Note ---
Nephrology - PN: Subj Interval history: Nausea and diarrhea have improved over the weekend. No new symptoms Exam (PN)-Nephrology - Vital Signs Vital signs: Period Temp Pulse Resp BP Sys/Block Pulse Ox Last 24 Hr 97.7 F-98.9 F 81-116 14-20 91-118/47-75 91-98 Exam: ENT: Normal Cardiovascular: Regular rate and rhythm. No murmur rub or gallop Lungs: Clear Extremities: No edema - Lab 05/21/17 05:25 05/21/17 05:25 Most recent lab results Calcium 6.2 MG/DL (8.5-10.1) L 05/21/17 05:25 Magnesium 1.4 MG/DL (1.8-2.4) L 05/14/17 05:27 Assessment and Plan (1) Status post kidney transplant Status: Chronic Assessment and plan: 56-year-old woman with: * Renal transplant. Renal function back to baseline. Prograf will be restarted at 3 mg twice daily * Metabolic acidosis. Improved with bicarb * Nausea vomiting diarrhea. EGD noted. Much improved * Mixed connective tissue disease * Diabetes mellitus * Hypertension (2) Volume depletion Status: Resolved (3) Type 2 diabetes mellitus Status: Chronic (4) Nausea & vomiting Status: Acute (5) Connective tissue disease Status: Chronic (6) Hypertension Status: Chronic (7) Hypothyroidism Status: Chronic (8) Acute renal failure Status: Resolved Specialty Discharge - Follow Up or Referrals
== END 2017-05-21 14:00 | disposition swing bed (61) | DRG 683 ==
LOC: N.ED 16:09 → N.EDINP 18:42 → N.5E 19:50
PROVIDERS: ADMIT Internal Medicine; ATTEND Internal Medicine

== ENCOUNTER 2017-09-29 06:24 | Inpatient (IN) ==
[2017-09-29 08:01] LABS: Basophils % 0.2 % (0.0-0.8); Eosinophils # 0.6 10*3/uL (0.0-0.87); Hematocrit 22.8 VOL% (35.7-47.0); Hemoglobin 7.4 GM/DL (12.0-16.0); Immature Granulocytes % 1.9 %; Immature Granulocytes Absolute 0.09 #; Lymphocytes # 0.6 10*3/uL (1.4-4.0); Lymphocytes % 13.3 % (21.3-54.2); Mean Corpuscular HGB Conc 32.5 GM/DL (32-36); Mean Corpuscular Hemoglobin 34 PG (27-34); Mean Platelet Volume 10.9 FL (9.6-12.0); Monocytes # 0.2 10*3/uL (0.11-0.8); Monocytes % 3.9 % (1.7-12.7); Neutrophils # 3.3 10*3/uL (1.4-7.4); Neutrophils % 68.7 % (38.7-73.9); Platelet Count 163 T/CUMM (130-400); Red Blood Count 2.15 MC/CUMM (3.8-5.5); Red Cell Distribution Width 20.7 % (9.3-17.3); White Blood Count 4.8 T/CUMM (4-12)
[2017-09-29 08:05] LABS: Apearance,Urine CLEAR (Clear); Bilirubin,Urine Negative (Negative); Blood, Urine Negative (Negative); Glucose,Urine (UA) Negative (Negative); Ketones,Urine Negative (Negative); Mucus,Urine Occasional /LPF (Occasional); Nitrite,Urine Negative (Negative); Protein,Urine Negative; RBC,Urine <1 /HPF (0-4); Urine Color Yellow (Yellow); Urine Specific Gravity 1.012 (1.001-1.035); Urine Urobilinogen < 2.0 EU/DL (0.2-1.0); WBC,Urine 1 /HPF (0-6)
[2017-09-29 08:31] LABS: Lactic Acid 1.2 MMOL/L (0.4-2.0)
[2017-09-29 08:32] LABS: Band Neutrophils 4 % (0-10); Eosinophils 10 % (0-10); Lymphocytes 9 % (20-55); Segmented Neutrophils 73 % (50-85); Total Cells Counted 100
[2017-09-29 08:33] LABS: Albumin 2.3 G/DL (3.4-5.0); Bilirubin,Total 1.5 MG/DL (0.2-1.0); Calcium 7.6 MG/DL (8.5-10.1); Giant Platelets Few; Hypochromasia 1+; Osmolality,Calculated 284.5 MOS/KG (273-304); Ovalocytes Slight; Platelet Estimate Normal; Potassium 4.5 MMOL/L (3.5-5.1); Total Protein 5.1 G/DL (6.4-8.3)
[2017-09-29] MEDS ORDERED: SODIUM CHLORIDE 0.9% 1,000 ML IV PRN (09:13)
[2017-09-29] MEDS ORDERED: ACETAMINOPHEN 325 MG TABLET PO PRN (09:13)
[2017-09-29] MEDS ORDERED: VANCOMYCIN INJ 1,000 MG in SODIUM CHLORIDE 0.9% 250 ML IV STA (09:13)
[2017-09-29] MEDS ORDERED: VANCOMYCIN 1,000 MG VIAL ONE (09:33)
[2017-09-29] MEDS ORDERED: cefTRIAXone 1,000 MG VIAL ONE (09:51)
[2017-09-29] MEDS: cefTRIAXone 1,000 MG in SYRINGE 1 EACH IV SCH (09:58)
[2017-09-29] MEDS: ONDANSETRON 4 MG/2 ML VIAL IV PRN (11:33)
[2017-09-29] MEDS ORDERED: FUROSEMIDE 40 MG/4 ML VIAL IV PRN (12:12)
[2017-09-29] MEDS ORDERED: ZINC OXIDE PASTE 113 GM TUBE TOP PRN (12:31)
[2017-09-29] MEDS ORDERED: GLUCAGON 1 MG VIAL IM PRN (13:16)
[2017-09-29] MEDS ORDERED: DEXTROSE 50% 25 GM/50 ML VIAL IV PRN (13:16)
[2017-09-29 13:29] LABS: % Iron Saturation 21.7 % (18-50); Ferritin 3089.4 ng/ml (8-252)
[2017-09-29 13:35] LABS: Folate 11.9 NG/ML (5.4-24.0)
[2017-09-29] MEDS: SODIUM CHLORIDE 0.9% 1,000 ML IV SCH (13:52)
[2017-09-29] MEDS ORDERED: SODIUM BICARBONATE 650 MG TABLET PO SCH (15:00)
[2017-09-29] MEDS: SODIUM BICARBONATE 650 MG TABLET PO SCH ×2 (15:59→21:27)
[2017-09-29] MEDS: INSULIN LISPRO 100 UNIT/ML SUBCUT SCH (16:30)
[2017-09-29] MEDS: TACROLIMUS 0.5 MG CAPSULE PO SCH (21:26)
[2017-09-29] MEDS: POTASSIUM CHLORIDE 8 MEQ CAPSULE PO SCH (21:27)
[2017-09-29] MEDS: DOCUSATE SODIUM 100 MG CAPSULE PO SCH ×2 (21:27→21:36)
[2017-09-29] MEDS: BENZONATATE 100 MG CAPSULE PO SCH (21:28)
[2017-09-29] MEDS: ATORVASTATIN 10 MG TABLET PO SCH (21:28)
[2017-09-29] MEDS: NYSTATIN CREAM 15 GM TUBE TOP SCH (21:28)
[2017-09-29] MEDS: SERTRALINE 25 MG TABLET PO SCH (21:30)
[2017-09-30] MEDS: SODIUM CHLORIDE 0.9% 1,000 ML IV SCH ×4 (02:46→23:56)
[2017-09-30] MEDS: ONDANSETRON 4 MG/2 ML VIAL IV PRN (03:52)
[2017-09-30] MEDS: LEVOTHYROXINE 100 MCG TABLET PO SCH (06:01)
[2017-09-30 06:06] LABS: Basophils % 0.2 % (0.0-0.8); Eosinophils # 0.9 10*3/uL (0.0-0.87); Eosinophils % 16.6 % (0.00-10.9); Immature Granulocytes % 1.5 %; Immature Granulocytes Absolute 0.08 #; Lymphocytes # 0.4 10*3/uL (1.4-4.0); Lymphocytes % 8.1 % (21.3-54.2); Mean Corpuscular HGB Conc 33.1 GM/DL (32-36); Mean Corpuscular Hemoglobin 33 PG (27-34); Mean Corpuscular Volume 99.7 FL (87-102); Mean Platelet Volume 10.6 FL (9.6-12.0); Monocytes # 0.2 10*3/uL (0.11-0.8); Monocytes % 3.4 % (1.7-12.7); Neutrophils # 3.7 10*3/uL (1.4-7.4); Neutrophils % 70.2 % (38.7-73.9); Platelet Count 152 T/CUMM (130-400); Red Blood Count 3.21 MC/CUMM (3.8-5.5); Red Cell Distribution Width 20.5 % (9.3-17.3); White Blood Count 5.3 T/CUMM (4-12)
[2017-09-30 06:22] LABS: Hemoglobin 10.6 GM/DL (12.0-16.0)
[2017-09-30 06:34] LABS: Calcium 7.4 MG/DL (8.5-10.1); Osmolality,Calculated 288.3 MOS/KG (273-304); Potassium 4.4 MMOL/L (3.5-5.1)
[2017-09-30 07:09] LABS: Band Neutrophils 5 % (0-10); Eosinophils 15 % (0-10); Giant Platelets Few; Hypochromasia 1+; Lymphocytes 8 % (20-55); Ovalocytes Slight; Platelet Estimate Normal; Segmented Neutrophils 69 % (50-85); Total Cells Counted 100
[2017-09-30] MEDS: NYSTATIN CREAM 15 GM TUBE TOP SCH ×2 (08:19→22:02)
[2017-09-30] MEDS: INSULIN LISPRO 100 UNIT/ML SUBCUT SCH ×3 (08:19→17:20)
[2017-09-30] MEDS: BENZONATATE 100 MG CAPSULE PO SCH ×2 (08:20→22:00)
[2017-09-30] MEDS: azaTHIOprine 50 MG TABLET PO SCH ×2 (08:20→08:34)
[2017-09-30] MEDS: POTASSIUM CHLORIDE 8 MEQ CAPSULE PO SCH ×2 (08:21→21:59)
[2017-09-30] MEDS: predniSONE 10 MG TABLET PO SCH (08:21)
[2017-09-30] MEDS: SODIUM BICARBONATE 650 MG TABLET PO SCH ×3 (08:21→22:00)
[2017-09-30] MEDS: MAGNESIUM OXIDE 400 MG TABLET PO SCH (08:21)
[2017-09-30] MEDS: PANTOPRAZOLE 40 MG TABLET PO SCH (08:21)
[2017-09-30] MEDS: DOCUSATE SODIUM 100 MG CAPSULE PO SCH ×2 (08:22→22:01)
[2017-09-30] MEDS: TACROLIMUS 0.5 MG CAPSULE PO SCH ×2 (08:49→21:59)
[2017-09-30] MEDS ORDERED: PANTOPRAZOLE 40 MG TABLET PO SCH (09:00)
[2017-09-30] MEDS: cefTRIAXone 1,000 MG in SYRINGE 1 EACH IV SCH (10:40)
[2017-09-30] MEDS: ATORVASTATIN 10 MG TABLET PO SCH (22:00)
[2017-09-30] MEDS: SERTRALINE 25 MG TABLET PO SCH (22:00)
[2017-10-01] MEDS: ONDANSETRON 4 MG/2 ML VIAL IV PRN (03:51)
[2017-10-01] MEDS: LEVOTHYROXINE 100 MCG TABLET PO SCH (05:32)
[2017-10-01] MEDS: MAGNESIUM OXIDE 400 MG TABLET PO SCH (09:21)
[2017-10-01] MEDS: SODIUM BICARBONATE 650 MG TABLET PO SCH ×3 (09:21→21:58)
[2017-10-01] MEDS: predniSONE 10 MG TABLET PO SCH (09:21)
[2017-10-01] MEDS: PANTOPRAZOLE 40 MG TABLET PO SCH (09:22)
[2017-10-01] MEDS: TACROLIMUS 0.5 MG CAPSULE PO SCH ×2 (09:23→21:58)
[2017-10-01] MEDS: DOCUSATE SODIUM 100 MG CAPSULE PO SCH ×3 (09:23→21:58)
[2017-10-01] MEDS: BENZONATATE 100 MG CAPSULE PO SCH ×2 (09:23→21:58)
[2017-10-01] MEDS: azaTHIOprine 50 MG TABLET PO SCH (09:24)
[2017-10-01] MEDS: POTASSIUM CHLORIDE 8 MEQ CAPSULE PO SCH ×2 (09:25→21:58)
[2017-10-01] MEDS: cefTRIAXone 1,000 MG in SYRINGE 1 EACH IV SCH (09:26)
[2017-10-01] MEDS: NYSTATIN CREAM 15 GM TUBE TOP SCH ×2 (09:28→21:58)
[2017-10-01] MEDS: INSULIN LISPRO 100 UNIT/ML SUBCUT SCH ×3 (09:28→16:25)
[2017-10-01] MEDS: SODIUM CHLORIDE 0.9% 1,000 ML IV SCH (12:40)
[2017-10-01] MEDS: LOPERAMIDE 2 MG CAPSULE PO PRN (16:21)
[2017-10-01] MEDS: SERTRALINE 25 MG TABLET PO SCH (21:58)
[2017-10-01] MEDS: ATORVASTATIN 10 MG TABLET PO SCH (21:58)
[2017-10-02] MEDS: SODIUM CHLORIDE 0.9% 1,000 ML IV SCH ×3 (03:12→20:00)
[2017-10-02] MEDS: LEVOTHYROXINE 100 MCG TABLET PO SCH (05:36)
[2017-10-02 06:40] LABS: Calcium 8.3 MG/DL (8.5-10.1); Osmolality,Calculated 293.8 MOS/KG (273-304)
[2017-10-02 06:44] LABS: Potassium 6.3 MMOL/L (3.5-5.1)
[2017-10-02 07:17] LABS: Basophils % 0.2 % (0.0-0.8); Eosinophils # 0.1 10*3/uL (0.0-0.87); Eosinophils % 2.4 % (0.00-10.9); Hematocrit 30.5 VOL% (35.7-47.0); Hemoglobin 9.9 GM/DL (12.0-16.0); Immature Granulocytes % 1.2 %; Immature Granulocytes Absolute 0.05 #; Lymphocytes # 0.5 10*3/uL (1.4-4.0); Lymphocytes % 12.1 % (21.3-54.2); Mean Corpuscular HGB Conc 32.5 GM/DL (32-36); Mean Corpuscular Hemoglobin 34 PG (27-34); Mean Corpuscular Volume 103.4 FL (87-102); Mean Platelet Volume 10.5 FL (9.6-12.0); Monocytes # 0.3 10*3/uL (0.11-0.8); Monocytes % 6.2 % (1.7-12.7); Neutrophils # 3.3 10*3/uL (1.4-7.4); Neutrophils % 77.9 % (38.7-73.9); Platelet Count 168 T/CUMM (130-400); Red Blood Count 2.95 MC/CUMM (3.8-5.5); Red Cell Distribution Width 20.3 % (9.3-17.3); White Blood Count 4.2 T/CUMM (4-12)
[2017-10-02] MEDS: cefTRIAXone 1,000 MG in SYRINGE 1 EACH IV SCH (09:51)
[2017-10-02] MEDS: MAGNESIUM OXIDE 400 MG TABLET PO SCH (09:52)
[2017-10-02] MEDS: BENZONATATE 100 MG CAPSULE PO SCH ×2 (09:52→21:29)
[2017-10-02] MEDS: SODIUM BICARBONATE 650 MG TABLET PO SCH ×3 (09:52→21:29)
[2017-10-02] MEDS: predniSONE 10 MG TABLET PO SCH (09:53)
[2017-10-02] MEDS: azaTHIOprine 50 MG TABLET PO SCH (09:53)
[2017-10-02] MEDS: DOCUSATE SODIUM 100 MG CAPSULE PO SCH ×2 (09:53→21:30)
[2017-10-02] MEDS: PANTOPRAZOLE 40 MG TABLET PO SCH (09:53)
[2017-10-02] MEDS: TACROLIMUS 0.5 MG CAPSULE PO SCH ×2 (09:53→21:29)
[2017-10-02] MEDS: NYSTATIN CREAM 15 GM TUBE TOP SCH ×2 (09:53→21:37)
[2017-10-02] MEDS: LOPERAMIDE 2 MG CAPSULE PO PRN (10:00)
[2017-10-02] MEDS: INSULIN LISPRO 100 UNIT/ML SUBCUT SCH ×3 (15:36→17:14)
[2017-10-02] MEDS: SERTRALINE 25 MG TABLET PO SCH (21:29)
[2017-10-02] MEDS: ATORVASTATIN 10 MG TABLET PO SCH (21:29)
[2017-10-03] MEDS: LEVOTHYROXINE 100 MCG TABLET PO SCH (05:44)
[2017-10-03 08:08] LABS: Basophils % 0.2 % (0.0-0.8); Eosinophils # 0.1 10*3/uL (0.0-0.87); Hematocrit 30.3 VOL% (35.7-47.0); Immature Granulocytes % 1.3 %; Immature Granulocytes Absolute 0.06 #; Lymphocytes # 0.8 10*3/uL (1.4-4.0); Lymphocytes % 17.6 % (21.3-54.2); Mean Corpuscular Hemoglobin 34 PG (27-34); Mean Corpuscular Volume 102.7 FL (87-102); Mean Platelet Volume 10.6 FL (9.6-12.0); Monocytes # 0.3 10*3/uL (0.11-0.8); Monocytes % 6.7 % (1.7-12.7); Neutrophils # 3.3 10*3/uL (1.4-7.4); Neutrophils % 71.2 % (38.7-73.9); Platelet Count 180 T/CUMM (130-400); Red Blood Count 2.95 MC/CUMM (3.8-5.5); Red Cell Distribution Width 19.9 % (9.3-17.3); White Blood Count 4.6 T/CUMM (4-12)
[2017-10-03 08:11] VITALS: BP 143/73
[2017-10-03 08:25] LABS: Calcium 8.2 MG/DL (8.5-10.1); Osmolality,Calculated 292.7 MOS/KG (273-304); Potassium 4.8 MMOL/L (3.5-5.1)
[2017-10-03] MEDS: TACROLIMUS 0.5 MG CAPSULE PO SCH (09:19)
[2017-10-03] MEDS: SODIUM BICARBONATE 650 MG TABLET PO SCH (09:20)
[2017-10-03] MEDS: cefTRIAXone 1,000 MG in SYRINGE 1 EACH IV SCH (09:20)
[2017-10-03] MEDS: predniSONE 10 MG TABLET PO SCH (09:20)
[2017-10-03] MEDS: PANTOPRAZOLE 40 MG TABLET PO SCH (09:20)
[2017-10-03] MEDS: azaTHIOprine 50 MG TABLET PO SCH (09:20)
[2017-10-03] MEDS: BENZONATATE 100 MG CAPSULE PO SCH (09:20)
[2017-10-03] MEDS: MAGNESIUM OXIDE 400 MG TABLET PO SCH (09:20)
[2017-10-03] MEDS: POTASSIUM CHLORIDE 8 MEQ CAPSULE PO SCH (10:21)
[2017-10-03] MEDS: DOCUSATE SODIUM 100 MG CAPSULE PO SCH (10:21)
[2017-10-03] MEDS: NYSTATIN CREAM 15 GM TUBE TOP SCH (10:21)
[2017-10-03] MEDS: INSULIN LISPRO 100 UNIT/ML SUBCUT SCH ×2 (10:21→13:24)
== END 2017-10-03 13:00 | disposition home or self-care (01) | DRG 866 ==
LOC: N.ED 06:24 → N.EDINP 09:13 → N.2E 11:17
PROVIDERS: ADMIT Internal Medicine; ATTEND Internal Medicine

== ENCOUNTER 2017-11-16 12:07 | Inpatient (IN) ==
[2017-11-16] MEDS ORDERED: VANCOMYCIN INJ 1,000 MG in SODIUM CHLORIDE 0.9% 250 ML IV STA (12:40)
[2017-11-16] MEDS ORDERED: ONDANSETRON 4 MG/2 ML VIAL IV STA (12:40)
[2017-11-16] MEDS ORDERED: SODIUM CHLORIDE 0.9% 1,000 ML IV STA (12:40)
[2017-11-16] MEDS ORDERED: VANCOMYCIN 1,000 MG VIAL ONE (12:58)
[2017-11-16] MEDS ORDERED: ONDANSETRON 4 MG/2 ML VIAL ONE (12:58)
[2017-11-16] MEDS ORDERED: SODIUM CHLORIDE 0.9% 250 ML IV ONE (12:59)
[2017-11-16 13:20] LABS: Eosinophils # 0.2 10*3/uL (0.0-0.87); Eosinophils % 12.5 % (0.00-10.9); Hematocrit 22.2 VOL% (35.7-47.0); Immature Granulocytes Absolute 0.02 #; Lymphocytes # 0.2 10*3/uL (1.4-4.0); Lymphocytes % 12.5 % (21.3-54.2); Mean Corpuscular HGB Conc 31.5 GM/DL (32-36); Mean Corpuscular Hemoglobin 34 PG (27-34); Mean Corpuscular Volume 106.7 FL (87-102); Mean Platelet Volume 11.8 FL (9.6-12.0); Monocytes # 0.1 10*3/uL (0.11-0.8); Monocytes % 2.6 % (1.7-12.7); Neutrophils # 1.4 10*3/uL (1.4-7.4); Neutrophils % 71.4 % (38.7-73.9); Platelet Count 87 T/CUMM (130-400); Red Blood Count 2.08 MC/CUMM (3.8-5.5); Red Cell Distribution Width 18.4 % (9.3-17.3); White Blood Count 1.9 T/CUMM (4-12)
[2017-11-16 13:40] LABS: Alanine Aminotransferase < 9 U/L (13-56); Albumin 1.9 G/DL (3.4-5.0); Alkaline Phosphatase 437 U/L (45-117); Amylase 19 U/L (25-115); Aspartate Amino Transferase 10 U/L (0-37); Blood Urea Nitrogen 71 MG/DL (7-18); Calcium 7.1 MG/DL (8.5-10.1); Glucose 74 MG/DL (74-106); Osmolality,Calculated 298.4 MOS/KG (273-304); Potassium 4.6 MMOL/L (3.5-5.1); Sodium 140 MMOL/L (136-145); Total Protein 4.9 G/DL (6.4-8.3)
[2017-11-16 13:42] LABS: Troponin I Only 0.527 NG/ML (0.00-0.045)
[2017-11-16 13:45] LABS: Apearance,Urine Slightly Hazy (Clear); Bacteria,Urine Occasional /HPF (Few); Bilirubin,Urine Negative (Negative); Blood, Urine Negative (Negative); Glucose,Urine (UA) Negative (Negative); Hyaline Casts,Urine 5 /LPF (0-3); Ketones,Urine 5 mg/dL (Negative); Mucus,Urine Occasional /LPF (Occasional); Nitrite,Urine Negative (Negative); Protein,Urine Negative; RBC,Urine 2 /HPF (0-4); Urine Color Amber (Yellow); Urine Specific Gravity 1.013 (1.001-1.035); Urine Urobilinogen < 2.0 EU/DL (0.2-1.0); WBC,Urine 1 /HPF (0-6)
[2017-11-16 14:53] LABS: Band Neutrophils 1 % (0-10); Eosinophils 8 % (0-10); Lymphocytes 7 % (20-55); Myelocytes 1 %; Segmented Neutrophils 82 % (50-85); Total Cells Counted 100
[2017-11-16 14:54] LABS: Anisocytosis 1+; Hypochromasia 1+; Ovalocytes Few; Platelet Estimate Decreased
[2017-11-16] MEDS ORDERED: SODIUM CHLORIDE 0.9% 1,000 ML IV PRN (15:59)
[2017-11-16] MEDS ORDERED: GLUCAGON 1 MG VIAL IM PRN (15:59)
[2017-11-16] MEDS: SODIUM CHLORIDE 0.9% 1,000 ML IV SCH (16:00)
[2017-11-16] MEDS: INSULIN REGULAR 100 UNIT/ML SUBCUT SCH ×2 (19:01→20:16)
[2017-11-16] MEDS: SERTRALINE 25 MG TABLET PO SCH (20:20)
[2017-11-16] MEDS: ATORVASTATIN 10 MG TABLET PO SCH (20:20)
[2017-11-16] MEDS: SODIUM BICARBONATE 650 MG TABLET PO SCH (20:20)
[2017-11-16] MEDS: TACROLIMUS 0.5 MG CAPSULE PO SCH (20:21)
[2017-11-17] MEDS: SODIUM CHLORIDE 0.9% 1,000 ML IV SCH ×3 (03:00→11:56)
[2017-11-17 05:49] LABS: Hematocrit 27.1 VOL% (35.7-47.0)
[2017-11-17 06:00] LABS: Hemoglobin 8.7 GM/DL (12.0-16.0)
[2017-11-17 06:05] LABS: Calcium 6.9 MG/DL (8.5-10.1); Osmolality,Calculated 295.4 MOS/KG (273-304); Potassium 4.6 MMOL/L (3.5-5.1)
[2017-11-17] MEDS: LEVOTHYROXINE 100 MCG TABLET PO SCH (06:23)
[2017-11-17 08:50] LABS: Eosinophils # 0.3 10*3/uL (0.0-0.87); Eosinophils % 16.5 % (0.00-10.9); Hematocrit 27.2 VOL% (35.7-47.0); Hemoglobin 8.8 GM/DL (12.0-16.0); Immature Granulocytes % 1.8 %; Immature Granulocytes Absolute 0.03 #; Lymphocytes # 0.3 10*3/uL (1.4-4.0); Lymphocytes % 15.9 % (21.3-54.2); Mean Corpuscular HGB Conc 32.4 GM/DL (32-36); Mean Corpuscular Hemoglobin 32 PG (27-34); Mean Corpuscular Volume 98.2 FL (87-102); Mean Platelet Volume 11.7 FL (9.6-12.0); Monocytes # 0.1 10*3/uL (0.11-0.8); Monocytes % 4.1 % (1.7-12.7); NRBC # 0.02 10*3/uL; Neutrophils # 1.1 10*3/uL (1.4-7.4); Neutrophils % 61.7 % (38.7-73.9); Red Cell Distribution Width 19.1 % (9.3-17.3); White Blood Count 1.7 T/CUMM (4-12)
[2017-11-17 08:51] LABS: Platelet Count 79 T/CUMM (130-400)
[2017-11-17 08:52] LABS: Red Blood Count 2.77 MC/CUMM (3.8-5.5)
[2017-11-17] MEDS ORDERED: SODIUM BICARB INJ 50 MEQ in SODIUM CHLORIDE 0.45% 1,000 ML IV SCH (09:00)
[2017-11-17] MEDS: INSULIN REGULAR 100 UNIT/ML SUBCUT SCH ×4 (09:06→21:43)
[2017-11-17 09:32] LABS: Band Neutrophils 8 % (0-10); Burr Cells Slight; Eosinophils 16 % (0-10); Lymphocytes 11 % (20-55); Polychromasia Slight; Segmented Neutrophils 63 % (50-85); Total Cells Counted 100
[2017-11-17 09:33] LABS: Macrocytosis 1+; Platelet Estimate Decreased
[2017-11-17] MEDS: azaTHIOprine 50 MG TABLET PO SCH (11:53)
[2017-11-17] MEDS: MAGNESIUM OXIDE 400 MG TABLET PO SCH (11:54)
[2017-11-17] MEDS: predniSONE 10 MG TABLET PO SCH (11:54)
[2017-11-17] MEDS: PANTOPRAZOLE 40 MG TABLET PO SCH (11:54)
[2017-11-17] MEDS: TACROLIMUS 0.5 MG CAPSULE PO SCH ×2 (11:54→21:43)
[2017-11-17] MEDS: SODIUM BICARBONATE 650 MG TABLET PO SCH ×3 (11:55→21:43)
[2017-11-17] MEDS: ONDANSETRON 4 MG/2 ML VIAL IV PRN (12:14)
[2017-11-17] MEDS: SODIUM BICARB INJ 50 MEQ in DEXTROSE 5% NACL 0.45% 1,000 ML IV SCH (14:54)
[2017-11-17] MEDS: SERTRALINE 25 MG TABLET PO SCH (21:43)
[2017-11-17] MEDS: ATORVASTATIN 10 MG TABLET PO SCH (21:43)
[2017-11-18] MEDS: SODIUM BICARB INJ 50 MEQ in DEXTROSE 5% NACL 0.45% 1,000 ML IV SCH ×2 (01:54→01:55)
[2017-11-18] MEDS: ONDANSETRON 4 MG/2 ML VIAL IV PRN (04:50)
[2017-11-18 06:10] LABS: Calcium 6.8 MG/DL (8.5-10.1); Osmolality,Calculated 291.8 MOS/KG (273-304); Potassium 4.9 MMOL/L (3.5-5.1)
[2017-11-18] MEDS: LEVOTHYROXINE 100 MCG TABLET PO SCH (06:14)
[2017-11-18 06:59] LABS: Eosinophils # 0.3 10*3/uL (0.0-0.87); Eosinophils % 19.8 % (0.00-10.9); Hematocrit 28.3 VOL% (35.7-47.0); Hemoglobin 9.2 GM/DL (12.0-16.0); Immature Granulocytes % 1.7 %; Immature Granulocytes Absolute 0.03 #; Lymphocytes # 0.3 10*3/uL (1.4-4.0); Lymphocytes % 14.5 % (21.3-54.2); Mean Corpuscular HGB Conc 32.5 GM/DL (32-36); Mean Corpuscular Hemoglobin 32 PG (27-34); Mean Corpuscular Volume 97.9 FL (87-102); Mean Platelet Volume 11.4 FL (9.6-12.0); Monocytes # 0.1 10*3/uL (0.11-0.8); Monocytes % 5.8 % (1.7-12.7); Neutrophils % 58.2 % (38.7-73.9); Red Blood Count 2.89 MC/CUMM (3.8-5.5); Red Cell Distribution Width 19.9 % (9.3-17.3); White Blood Count 1.7 T/CUMM (4-12)
[2017-11-18 07:00] LABS: Platelet Count 88 T/CUMM (130-400)
[2017-11-18 07:24] LABS: Band Neutrophils 3 % (0-10); Eosinophils 11 % (0-10); Lymphocytes 22 % (20-55); Segmented Neutrophils 60 % (50-85); Total Cells Counted 100
[2017-11-18 07:25] LABS: Burr Cells Few; Macrocytosis 2+; Platelet Estimate Decreased
[2017-11-18] MEDS: SODIUM BICARBONATE 650 MG TABLET PO SCH ×3 (09:36→20:53)
[2017-11-18] MEDS: predniSONE 10 MG TABLET PO SCH (09:37)
[2017-11-18] MEDS: azaTHIOprine 50 MG TABLET PO SCH (09:37)
[2017-11-18] MEDS: PANTOPRAZOLE 40 MG TABLET PO SCH (09:37)
[2017-11-18] MEDS: MAGNESIUM OXIDE 400 MG TABLET PO SCH (09:37)
[2017-11-18] MEDS: INSULIN REGULAR 100 UNIT/ML SUBCUT SCH ×4 (09:38→20:55)
[2017-11-18] MEDS: TACROLIMUS 0.5 MG CAPSULE PO SCH ×2 (09:38→20:55)
[2017-11-18] MEDS: diphenhydrAMINE CAP 25 MG CAPSULE PO PRN ×2 (10:57→20:55)
[2017-11-18] MEDS: SODIUM BICARB INJ 150 MEQ in DEXTROSE 5% 850 ML IV SCH ×2 (10:58→20:56)
[2017-11-18] MEDS: SERTRALINE 25 MG TABLET PO SCH (20:55)
[2017-11-19 05:22] LABS: Calcium 6.3 MG/DL (8.5-10.1); Osmolality,Calculated 292.8 MOS/KG (273-304); Potassium 4.4 MMOL/L (3.5-5.1)
[2017-11-19] MEDS: LEVOTHYROXINE 100 MCG TABLET PO SCH (05:51)
[2017-11-19] MEDS: SODIUM BICARB INJ 150 MEQ in DEXTROSE 5% 850 ML IV SCH (07:24)
[2017-11-19] MEDS ORDERED: SODIUM CHLORIDE 0.9% 500 ML IV ONE ×2 (08:42→12:39)
[2017-11-19] MEDS: TACROLIMUS 0.5 MG CAPSULE PO SCH ×2 (08:43→23:53)
[2017-11-19] MEDS: azaTHIOprine 50 MG TABLET PO SCH (08:43)
[2017-11-19] MEDS: SODIUM BICARBONATE 650 MG TABLET PO SCH ×4 (09:05→23:54)
[2017-11-19] MEDS: PANTOPRAZOLE 40 MG TABLET PO SCH (09:06)
[2017-11-19] MEDS: predniSONE 10 MG TABLET PO SCH (09:06)
[2017-11-19] MEDS: MAGNESIUM OXIDE 400 MG TABLET PO SCH (09:06)
[2017-11-19] MEDS: INSULIN REGULAR 100 UNIT/ML SUBCUT SCH ×4 (09:20→23:51)
[2017-11-19] MEDS: SODIUM CHLORIDE 0.9% 1,000 ML IV SCH ×4 (09:22→23:45)
[2017-11-19] MEDS: HYDROCORTISONE 100 MG VIAL IV SCH ×2 (09:24→16:04)
[2017-11-19 09:29] LABS: Alanine Aminotransferase < 6 U/L (13-56); Albumin 1.4 G/DL (3.4-5.0); Alkaline Phosphatase 327 U/L (45-117); Aspartate Amino Transferase 29 U/L (0-37); Bilirubin,Indirect 0.7 MG/DL (0.0-1.0); Total Protein 3.4 G/DL (6.4-8.3)
[2017-11-19] MEDS ORDERED: SODIUM CHLORIDE 0.9% 250 ML IV ONE (15:47)
[2017-11-19] MEDS: GENTAMICIN 0.1% CREAM 15 GM TUBE TOP SCH (16:04)
[2017-11-19] MEDS: MIDODRINE 5 MG TABLET PO SCH ×3 (16:04→23:54)
[2017-11-19] MEDS ORDERED: LEVOFLOXACIN INJ 500 MG in PREMIX 1 EACH IV ONE (17:34)
[2017-11-19 20:12] LABS: ABG Base Excess -13.6 MMOL/L (-2.5-2.5); ABG HCO3 13.8 MMOL/L (20-26); ABG Oxygen Saturation 90.2 % (95-100); ABG PCO2 47.3 MM HG (35-48); ABG PO2 78.4 MM HG (80-95); ABG TCO2 14.8 MMOL/L (23-27)
[2017-11-19] MEDS ORDERED: SUCCINYLCHOLINE 200 MG/10 ML VIAL ONE (20:12)
[2017-11-19 20:13] LABS: ABG PH 7.121 (7.35-7.45)
[2017-11-19] MEDS ORDERED: ETOMIDATE 20 MG/10 ML VIAL IV ONE ×2 (20:13→20:16)
[2017-11-19] MEDS ORDERED: VECURONIUM 10 MG VIAL IV ONE ×2 (20:16→20:17)
[2017-11-19 22:35] LABS: Basophils % 0.6 % (0.0-0.8); Hematocrit 23.8 VOL% (35.7-47.0); Hemoglobin 7.8 GM/DL (12.0-16.0); Immature Granulocytes % 6.3 %; Lymphocytes # 0.2 10*3/uL (1.4-4.0); Lymphocytes % 11.3 % (21.3-54.2); Mean Corpuscular HGB Conc 32.8 GM/DL (32-36); Mean Corpuscular Hemoglobin 32 PG (27-34); Mean Corpuscular Volume 97.1 FL (87-102); Mean Platelet Volume 12.3 FL (9.6-12.0); Monocytes # 0.2 10*3/uL (0.11-0.8); NRBC # 0.05 10*3/uL; Neutrophils # 1.2 10*3/uL (1.4-7.4); Neutrophils % 71.8 % (38.7-73.9); Platelet Count 70 T/CUMM (130-400); Red Blood Count 2.45 MC/CUMM (3.8-5.5); Red Cell Distribution Width 20.1 % (9.3-17.3); White Blood Count 1.6 T/CUMM (4-12)
[2017-11-19 22:42] LABS: ABG Base Excess -7.2 MMOL/L (-2.5-2.5); ABG HCO3 18.6 MMOL/L (20-26); ABG Oxygen Saturation 99.4 % (95-100); ABG PCO2 27.4 MM HG (35-48); ABG PH 7.395 (7.35-7.45); ABG TCO2 15.7 MMOL/L (23-27)
[2017-11-19 23:00] LABS: Calcium 6.1 MG/DL (8.5-10.1); Osmolality,Calculated 298.1 MOS/KG (273-304); Potassium 4.7 MMOL/L (3.5-5.1)
[2017-11-19] MEDS ORDERED: PHENYLEPHRINE DRIP 40 MG/250 ML PREMIX IV ONE (23:25)
[2017-11-19] MEDS ORDERED: PHENYLEPHRINE DRIP 40 MG/250 ML PREMIX IV PRN (23:28)
[2017-11-19] MEDS: SERTRALINE 25 MG TABLET PO SCH (23:54)
[2017-11-19] MEDS: DESITIN 4OZ/NYSTATIN 15 GRAM MIXTURE PASTE TOP SCH (23:54)
[2017-11-20 00:03] LABS: Eosinophils 1 % (0-10); Lymphocytes 13 % (20-55); Nucleated Red Blood Cells 3 (0-5); Segmented Neutrophils 81 % (50-85); Total Cells Counted 100
[2017-11-20 00:04] LABS: Burr Cells 1+; Platelet Estimate Decreased; Tear Drop Cells Slight
[2017-11-20] MEDS: HYDROCORTISONE 100 MG VIAL IV SCH ×3 (02:16→18:09)
[2017-11-20 04:14] LABS: ABG Base Excess -11.4 MMOL/L (-2.5-2.5); ABG HCO3 15.4 MMOL/L (20-26); ABG Oxygen Saturation 99.5 % (95-100); ABG PH 7.348 (7.35-7.45); ABG TCO2 12.3 MMOL/L (23-27)
[2017-11-20 04:57] LABS: Basophils % 0.8 % (0.0-0.8); Eosinophils % 0.8 % (0.00-10.9); Hematocrit 24.7 VOL% (35.7-47.0); Hemoglobin 8.3 GM/DL (12.0-16.0); Immature Granulocytes % 8.3 %; Lymphocytes # 0.3 10*3/uL (1.4-4.0); Lymphocytes % 22.3 % (21.3-54.2); Mean Corpuscular HGB Conc 33.6 GM/DL (32-36); Mean Corpuscular Hemoglobin 33 PG (27-34); Mean Corpuscular Volume 96.9 FL (87-102); Mean Platelet Volume 12.7 FL (9.6-12.0); Monocytes # 0.1 10*3/uL (0.11-0.8); Monocytes % 9.1 % (1.7-12.7); NRBC # 0.08 10*3/uL; Neutrophils # 0.7 10*3/uL (1.4-7.4); Neutrophils % 58.7 % (38.7-73.9); Platelet Count 104 T/CUMM (130-400); Red Blood Count 2.55 MC/CUMM (3.8-5.5); Red Cell Distribution Width 20.3 % (9.3-17.3); White Blood Count 1.2 T/CUMM (4-12)
[2017-11-20 05:20] LABS: Calcium 5.9 MG/DL (8.5-10.1); Osmolality,Calculated 297.1 MOS/KG (273-304); Potassium 4.8 MMOL/L (3.5-5.1)
[2017-11-20 05:33] LABS: Lymphocytes 23 % (20-55); Nucleated Red Blood Cells 9 (0-5); Segmented Neutrophils 71 % (50-85); Total Cells Counted 100
[2017-11-20 05:34] LABS: Burr Cells 1+; Hypochromasia 1+; Macrocytosis 1+
[2017-11-20 05:35] LABS: Anisocytosis 1+; Platelet Estimate Decreased
[2017-11-20] MEDS: LEVOTHYROXINE 100 MCG TABLET PO SCH (06:27)
[2017-11-20] MEDS ORDERED: LEVOFLOXACIN INJ 250 MG in PREMIX 1 EACH IV SCH (07:00)
[2017-11-20] MEDS: SODIUM CHLORIDE 0.9% 1,000 ML IV SCH ×3 (07:30→22:26)
[2017-11-20] MEDS: PHENYLEPHRINE INJ 160 MG in SODIUM CHLORIDE 0.9% 234 ML IV PRN ×2 (08:00→15:09)
[2017-11-20] MEDS: predniSONE 10 MG TABLET PO SCH (08:56)
[2017-11-20] MEDS: MIDODRINE 5 MG TABLET PO SCH ×3 (08:56→22:11)
[2017-11-20] MEDS: PANTOPRAZOLE 40 MG TABLET PO SCH (08:56)
[2017-11-20] MEDS: SODIUM BICARBONATE 650 MG TABLET PO SCH ×3 (08:56→22:11)
[2017-11-20] MEDS: MAGNESIUM OXIDE 400 MG TABLET PO SCH (08:57)
[2017-11-20] MEDS: GENTAMICIN 0.1% CREAM 15 GM TUBE TOP SCH (08:58)
[2017-11-20] MEDS: INSULIN REGULAR 100 UNIT/ML SUBCUT SCH ×3 (08:58→17:25)
[2017-11-20] MEDS: DESITIN 4OZ/NYSTATIN 15 GRAM MIXTURE PASTE TOP SCH ×2 (08:58→22:11)
[2017-11-20] MEDS: DEXTROSE 50% 25 GM/50 ML VIAL IV PRN ×2 (09:08→21:59)
[2017-11-20] MEDS: TACROLIMUS 0.5 MG CAPSULE PO SCH (09:22)
[2017-11-20 13:09] LABS: Hepatitis A Ab IgM Quant 0.14 Index; Hepatitis A Ab IgM Result Negative (Negative); Hepatitis B Core IgM Quant 0.19 Index; Hepatitis B Core IgM Result Negative (Negative); Hepatitis B Surface Ag Quant 0.19 Index; Hepatitis B Surface Ag Result Negative (Negative); Hepatitis C Virus Ab Quant 0.19 Index; Hepatitis C Virus Ab Result Negative (Negative)
[2017-11-20] MEDS ORDERED: HEPARIN 5,000 UNIT/1 ML VIAL ONE (14:07)
[2017-11-20] MEDS ORDERED: LIDOCAINE 1%/EPI INJ 20 ML VIAL ONE (14:08)
[2017-11-20] MEDS ORDERED: ROCURONIUM 100 MG/10 ML VIAL IV ONE (16:03)
[2017-11-20] MEDS ORDERED: NOREPINEPHRINE 16 MG in SODIUM CHLORIDE 0.9% 234 ML IV PRN (16:23)
[2017-11-20] MEDS ORDERED: NOREPINEPHRINE 4 MG/4 ML VIAL IV ONE (16:29)
[2017-11-20] MEDS ORDERED: FLUCONAZOLE INJ 100 MG in IV BAG 1 EACH IV SCH (17:00)
[2017-11-20] MEDS ORDERED: ALBUMIN 25% 25 GM in PREMIX 1 EACH IV ONE (17:23)
[2017-11-20 19:03] LABS: ABG Base Excess -8.5 MMOL/L (-2.5-2.5); ABG HCO3 17.5 MMOL/L (20-26); ABG Oxygen Saturation 99.2 % (95-100); ABG PCO2 31.5 MM HG (35-48); ABG TCO2 15.6 MMOL/L (23-27)
[2017-11-20] MEDS: SERTRALINE 25 MG TABLET PO SCH (22:11)
[2017-11-21] MEDS: INSULIN REGULAR 100 UNIT/ML SUBCUT SCH ×2 (00:30→05:59)
[2017-11-21] MEDS: HYDROCORTISONE 100 MG VIAL IV SCH ×2 (00:31→09:45)
[2017-11-21] MEDS: DEXTROSE 50% 25 GM/50 ML VIAL IV PRN (00:31)
[2017-11-21] MEDS: SODIUM CHLORIDE 0.9% 1,000 ML IV SCH ×2 (04:39→06:01)
[2017-11-21 04:43] LABS: ABG Base Excess -17.1 MMOL/L (-2.5-2.5); ABG HCO3 11.3 MMOL/L (20-26); ABG Oxygen Saturation 97.7 % (95-100); ABG PCO2 23.9 MM HG (35-48); ABG PH 7.212 (7.35-7.45); ABG TCO2 9.2 MMOL/L (23-27)
[2017-11-21 05:16] LABS: Calcium 5.9 MG/DL (8.5-10.1); Osmolality,Calculated 285.7 MOS/KG (273-304); Potassium 5.6 MMOL/L (3.5-5.1)
[2017-11-21 05:21] LABS: Prealbumin < 3.0 MG/DL (20-40)
[2017-11-21 05:22] LABS: Basophils % 1.2 % (0.0-0.8); Eosinophils # 0.1 10*3/uL (0.0-0.87); Eosinophils % 8.4 % (0.00-10.9); Hematocrit 22.5 VOL% (35.7-47.0); Hemoglobin 6.7 GM/DL (12.0-16.0); Immature Granulocytes % 7.2 %; Immature Granulocytes Absolute 0.12 #; Lymphocytes # 0.5 10*3/uL (1.4-4.0); Lymphocytes % 27.7 % (21.3-54.2); Mean Corpuscular HGB Conc 29.8 GM/DL (32-36); Mean Corpuscular Hemoglobin 32 PG (27-34); Mean Corpuscular Volume 106.1 FL (87-102); Mean Platelet Volume 13.7 FL (9.6-12.0); Monocytes # 0.1 10*3/uL (0.11-0.8); Monocytes % 3.6 % (1.7-12.7); NRBC # 0.05 10*3/uL; Neutrophils # 0.9 10*3/uL (1.4-7.4); Neutrophils % 51.9 % (38.7-73.9); Red Blood Count 2.12 MC/CUMM (3.8-5.5); Red Cell Distribution Width 21.2 % (9.3-17.3); White Blood Count 1.7 T/CUMM (4-12)
[2017-11-21 05:51] LABS: Platelet Count 42 T/CUMM (130-400)
[2017-11-21 06:00] LABS: Band Neutrophils 7 % (0-10); Giant Platelets Few; Hypochromasia 1+; Lymphocytes 31 % (20-55); Macrocytosis Slight; Nucleated Red Blood Cells 5 (0-5); Ovalocytes Slight; Platelet Estimate Decreased; Segmented Neutrophils 60 % (50-85); Total Cells Counted 100
[2017-11-21] MEDS: LEVOTHYROXINE 100 MCG TABLET PO SCH (06:25)
[2017-11-21] MEDS ORDERED: LEVOFLOXACIN INJ 250 MG in PREMIX 1 EACH IV SCH (07:00)
[2017-11-21] MEDS ORDERED: SODIUM CHLORIDE 0.9% 1,000 ML IV PRN ×2 (09:25→11:15)
[2017-11-21] MEDS: MAGNESIUM OXIDE 400 MG TABLET PO SCH (09:57)
[2017-11-21] MEDS: SODIUM BICARBONATE 650 MG TABLET PO SCH (09:57)
[2017-11-21] MEDS: PANTOPRAZOLE 40 MG TABLET PO SCH (09:57)
[2017-11-21] MEDS: MIDODRINE 5 MG TABLET PO SCH (09:58)
[2017-11-21] MEDS: predniSONE 10 MG TABLET PO SCH (09:58)
[2017-11-21] MEDS: DESITIN 4OZ/NYSTATIN 15 GRAM MIXTURE PASTE TOP SCH (10:01)
[2017-11-21] MEDS: GENTAMICIN 0.1% CREAM 15 GM TUBE TOP SCH (10:01)
[2017-11-21 11:26] VITALS: BP 102/46
== END 2017-11-21 11:58 | disposition expired | DRG 673 ==
LOC: EDUNIT# → EDBD → N.ED 12:07 → N.EDINP 13:52 → N.CC 15:25
PROVIDERS: ADMIT Internal Medicine; ATTEND Internal Medicine